=== PATIENT | female | born 1960 | race Caucasian/White ===

== ENCOUNTER → 2017-11-12 11:21 | Outpatient (CLI) | payer OTHER, SELFPAY ==
[2017-11-12 13:01] LABS: PTHIN 48.7 pg/mL (18.4-80.1)
[2017-11-12 13:07] LABS: ALB/GLOB Ratio 1.1 RATIO (0.9-2.4); AST(SGOT) 22 U/L (15-37); Alanine Aminotransfer ALT/SGPT 33 U/L (13-56); Alkaline Phosphatase 88 U/L (45-117); Anion Gap 4 (5-15); BUN 19 mg/dL (7-18); BUN/Creat Ratio 24.4 RATIO (10-20); Chloride 103 mmol/L (98-107); Cholesterol 209 mg/dL (200); Creatinine, Serum 0.78 mg/dL (0.55-1.02); EST Glomerular Filtration Rate 80 mL/min (>60); Est Glom Filt Rate - Afr Amer 97 mL/min (>60); Globulin 3.7 g/dL (2.2-4.2); Glucose 83 mg/dL (74-106); High Density Lipoprotein 116 mg/dL; Potassium 4.5 mmol/L (3.5-5.1); Protein, Total 7.7 g/dL (6.4-8.2); Sodium Level 138 mmol/L (136-145); Thyroid Stim Hormone (TSH) 1.53 uIU/mL (0.358-3.74); Triglycerides 69 mg/dL; Very Low Density Lipoprotein 14 mg/dL (5-40)
== END ==
PROVIDERS: Family Provider Family Medicine; PCP Family Medicine; Visit Provider Internal Medicine Endocrinology, Diabetes & Metabolism
DX: I10 Essential (primary) hypertension (principal); E03.8 Other specified hypothyroidism; E78.00 Pure hypercholesterolemia, unspecified; N20.0 Calculus of kidney; M85.9 Disorder of bone density and structure, unspecified
CPT/HCPCS: 36415; 80053; 80061; 82306; 83970; 84443

== ENCOUNTER → 2018-02-07 11:38 | Outpatient (CLI) | payer OTHER, SELFPAY ==
--- NOTE | 2018-02-07 11:43 | RAD_ITS ---
STUDY: X-RAY - LEFT KNEE REASON FOR EXAM: Female, 57 years old. Knee pain TECHNIQUE: 4 view(s) of the knee. COMPARISON: None. FINDINGS: Normal visualized distal femur. Normal visualized proximal tibia and fibula. Normal proximal tibiofibular articulation. Normal medial femorotibial compartment. Normal lateral femorotibial compartment. There is mild degenerative arthrosis of the patellofemoral articulation. The soft tissue structures are unremarkable. RAD/Knee 4 or More Views IMPRESSION: No acute fracture. Electronically Signed: Corey Boyd, at 4:18 EDT Tel , Service support ,
== END ==
PROVIDERS: Family Provider Family Medicine; PCP Family Medicine; Visit Provider Family Medicine
DX: M25.562 Pain in left knee (principal)
CPT/HCPCS: 73564

== ENCOUNTER → 2018-11-23 09:38 | Outpatient (CLI) | payer OTHER, SELFPAY ==
[2018-11-23 11:25] LABS: Absolute Lymphocyte Count 1.29 X10^3/ul (0.83-4.51); Absolute Neutrophil Count 2.6 X10^3/uL (2.0-7.7); Basophil# 0.07 X10^3/uL; Basophil% 1.6 % (0-1); Eosinophil# 0.14 X10^3/uL; Eosinophils% 3.1 % (0-5); Hematocrit 42.4 % (37-47); Hemoglobin 14.1 g/dl (12.0-15.0); Lymphocyte # 1.29 X10^3/ul (4.0); Lymphocyte % 28.8 % (19-41); Mean Corp Hgb Conc 33.3 g/gl (32-36); Mean Corpuscular Volume 90.2 fL (81-99); Mean Platelet Vol. 10.3 fl (6.2-12.0); Monocyte# 0.39 X10^3/uL; Monocyte% 8.7 % (0-10); Neutrophil # 2.58 X10^3/uL (2.7-7.7); Neutrophil % 57.6 % (47-70); Platelet Count 199 K/mm3 (150-450); RBC Distribution Width SD 46.3 fl (35.1-43.9); White Blood Count 4.5 K/mm3 (4.4-11.0)
[2018-11-23 11:32] LABS: POSITIVE COUNT NO; POSITIVE DIFFERENTIAL NO; POSITIVE MORPHOLOGY NO
[2018-11-23 11:56] LABS: ALB/GLOB Ratio 1.1 RATIO (0.9-2.4); AST(SGOT) 24 U/L (15-37); Alanine Aminotransfer ALT/SGPT 29 U/L (13-56); Albumin, Serum 3.8 g/dL (3.2-5.0); Alkaline Phosphatase 95 U/L (45-117); Anion Gap 5 (5-15); BUN 13 mg/dL (7-18); BUN/Creat Ratio 17.6 RATIO (10-20); Calcium,Total 8.9 mg/dL (8.5-10.1); Chloride 106 mmol/L (98-107); Cholesterol 189 mg/dL (200); Creatinine, Serum 0.74 mg/dL (0.55-1.02); EST Glomerular Filtration Rate 85 mL/min (>60); Est Glom Filt Rate - Afr Amer 103 mL/min (>60); Globulin 3.4 g/dL (2.2-4.2); Glucose 79 mg/dL (74-106); High Density Lipoprotein 95 mg/dL; Potassium 3.7 mmol/L (3.5-5.1); Protein, Total 7.2 g/dL (6.4-8.2); Sodium Level 138 mmol/L (136-145); Thyroid Stim Hormone (TSH) 1.04 uIU/mL (0.358-3.74); Triglycerides 43 mg/dL; Very Low Density Lipoprotein 9 mg/dL (5-40)
== END ==
PROVIDERS: Family Provider Family Medicine; PCP Family Medicine; Referring Provider Internal Medicine Endocrinology, Diabetes & Metabolism; Visit Provider Internal Medicine Endocrinology, Diabetes & Metabolism
DX: Z00.00 Encounter for general adult medical examination without abnormal findings (principal); E03.8 Other specified hypothyroidism; E78.00 Pure hypercholesterolemia, unspecified
CPT/HCPCS: 36415; 80053; 80061; 84443; 85025

== ENCOUNTER → 2019-06-23 15:57 | Outpatient (CLI) | payer OTHER, SELFPAY ==
[2019-06-23 17:14] LABS: ALB/GLOB Ratio 1.1 RATIO (0.9-2.4); AST(SGOT) 19 U/L (15-37); Alanine Aminotransfer ALT/SGPT 30 U/L (13-56); Albumin, Serum 3.8 g/dL (3.2-5.0); Alkaline Phosphatase 107 U/L (45-117); Anion Gap 3 (5-15); BUN 16 mg/dL (7-18); BUN/Creat Ratio 23.5 RATIO (10-20); Calcium,Total 9.3 mg/dL (8.5-10.1); Chloride 104 mmol/L (98-107); Creatinine, Serum 0.68 mg/dL (0.55-1.02); EST Glomerular Filtration Rate 94 mL/min (>60); Est Glom Filt Rate - Afr Amer 113 mL/min (>60); Globulin 3.4 g/dL (2.2-4.2); Glucose 82 mg/dL (74-106); Magnesium 2.2 mg/dL (1.6-2.6); Potassium 4.1 mmol/L (3.5-5.1); Protein, Total 7.2 g/dL (6.4-8.2); Sodium Level 137 mmol/L (136-145); Thyroid Stim Hormone (TSH) 1.26 uIU/mL (0.358-3.74)
== END ==
PROVIDERS: PCP Family Medicine; Referring Provider Internal Medicine Endocrinology, Diabetes & Metabolism; Visit Provider Internal Medicine Endocrinology, Diabetes & Metabolism
DX: E03.8 Other specified hypothyroidism (principal); E83.42 Hypomagnesemia
CPT/HCPCS: 36415; 80053; 83735; 84443

== ENCOUNTER → 2020-03-22 13:23 | Outpatient (CLI) | payer OTHER, SELFPAY ==
[2020-03-22 14:22] LABS: Vitamin D,25 Hydroxy 101.1 ng/mL
[2020-03-22 14:28] LABS: ALB/GLOB Ratio 1.2 RATIO (0.9-2.4); AST(SGOT) 18 U/L (15-37); Alanine Aminotransfer ALT/SGPT 27 U/L (13-56); Alkaline Phosphatase 113 U/L (45-117); Anion Gap 4 (5-15); BUN 13 mg/dL (7-18); BUN/Creat Ratio 18.1 RATIO (10-20); Calcium,Total 8.8 mg/dL (8.5-10.1); Chloride 102 mmol/L (98-107); Cholesterol 211 mg/dL (200); Creatinine, Serum 0.72 mg/dL (0.55-1.02); EST Glomerular Filtration Rate 87 mL/min (>60); Est Glom Filt Rate - Afr Amer 106 mL/min (>60); Globulin 3.3 g/dL (2.2-4.2); Glucose 84 mg/dL (74-106); High Density Lipoprotein 130 mg/dL; Magnesium 2.2 mg/dL (1.6-2.6); Potassium 3.8 mmol/L (3.5-5.1); Protein, Total 7.3 g/dL (6.4-8.2); Sodium Level 137 mmol/L (136-145); Thyroid Stim Hormone (TSH) 2.48 uIU/mL (0.358-3.74); Triglycerides 38 mg/dL; Very Low Density Lipoprotein 8 mg/dL (5-40)
== END ==
PROVIDERS: PCP Family Medicine; Referring Provider Internal Medicine Endocrinology, Diabetes & Metabolism; Visit Provider Internal Medicine Endocrinology, Diabetes & Metabolism
DX: E03.8 Other specified hypothyroidism (principal); E78.00 Pure hypercholesterolemia, unspecified; E55.9 Vitamin D deficiency, unspecified
CPT/HCPCS: 36415; 80053; 80061; 82306; 83735; 84443

== ENCOUNTER → 2020-05-06 11:12 | Outpatient (CLI) | payer OTHER, SELFPAY ==
--- NOTE | 2020-05-06 11:15 | RAD_ITS ---
STUDY: X-RAY - PELVIS AND RIGHT HIP REASON FOR EXAM: Female, 59 years old. right hip pain TECHNIQUE: 3 views of the pelvis and hip. COMPARISON: None. FINDINGS: There is a non-specific bowel gas pattern. Normal visualized soft tissue structures. Normal bilateral iliac wings, sacroiliac joints and visualized sacrum. Normal bilateral superior and inferior pubic rami. Normal pubic symphysis. Normal bilateral ischial tuberosities. Normal visualized femoral head. Normal acetabulum. Normal hip joint. RAD/HIP, UNI W/ Pelvis 2-3 Views IMPRESSION: Normal x-ray examination of the pelvis and hip. Electronically Signed: Campbell Murcia MD at 0:19 EST , Service support ,
== END ==
PROVIDERS: PCP Family Medicine; Referring Provider Family Medicine; Visit Provider Family Medicine
DX: M25.551 Pain in right hip (principal)
CPT/HCPCS: 73502

== ENCOUNTER → 2020-10-29 13:50 | Outpatient (CLI) | payer OTHER, SELFPAY ==
[2020-10-29 15:57] LABS: Vitamin D,25 Hydroxy 117.8 ng/mL
[2020-10-29 16:04] LABS: ALB/GLOB Ratio 1.2 RATIO (0.9-2.4); AST(SGOT) 33 U/L (15-37); Alanine Aminotransfer ALT/SGPT 46 U/L (13-56); Albumin, Serum 3.9 g/dL (3.2-5.0); Alkaline Phosphatase 103 U/L (45-117); Anion Gap 6 (5-15); BUN 20 mg/dL (7-18); BUN/Creat Ratio 28.6 RATIO (10-20); Calcium,Total 9.1 mg/dL (8.5-10.1); Chloride 102 mmol/L (98-107); EST Glomerular Filtration Rate 90 mL/min (>60); Est Glom Filt Rate - Afr Amer 109 mL/min (>60); Globulin 3.2 g/dL (2.2-4.2); Glucose 88 mg/dL (74-106); Magnesium 2.1 mg/dL (1.6-2.6); Potassium 3.6 mmol/L (3.5-5.1); Protein, Total 7.1 g/dL (6.4-8.2); Sodium Level 139 mmol/L (136-145); Thyroid Stim Hormone (TSH) 1.51 uIU/mL (0.358-3.74)
== END ==
PROVIDERS: PCP Family Medicine; Referring Provider Internal Medicine Endocrinology, Diabetes & Metabolism; Visit Provider Internal Medicine Endocrinology, Diabetes & Metabolism
DX: E03.8 Other specified hypothyroidism (principal); E55.9 Vitamin D deficiency, unspecified; E83.42 Hypomagnesemia
CPT/HCPCS: 36415; 80053; 82306; 83735; 84443

== ENCOUNTER 2021-05-05 15:15 | Outpatient (CLI) | payer OTHER, SELFPAY ==
[2021-05-05 15:29] VITALS: BP 111/68; PULSE 81; RESP 16; TEMP 37; O2SAT 100; BMI 22.4
[2021-05-05] MEDS: 0.9% Saline Lock 10 ML Syringe IV (15:38)
[2021-05-05 16:10] VITALS: BP 106/72; PULSE 80; RESP 16; TEMP 37.2; O2SAT 94
[2021-05-05 17:01] VITALS: BP 107/61; PULSE 80; RESP 16; TEMP 37.1; O2SAT 98
== END 2021-05-05 17:12 | disposition home or self-care (01) ==
LOC: MS3OUT 15:17 → MS3 15:18
PROVIDERS: PCP Family Medicine; Referring Provider Nurse Practitioner Adult Health; Visit Provider Nurse Practitioner Adult Health
DX: Z23 Encounter for immunization (principal); U07.1 COVID-19; I10 Essential (primary) hypertension
CPT/HCPCS: J7050; M0245; Q0245; A4216

== ENCOUNTER 2021-05-08 09:23 | Emergency (ER) | payer OTHER, SELFPAY ==
[2021-05-08 09:24] VITALS: BP 138/73; PULSE 99; RESP 16; TEMP 37.1; O2SAT 93; BMI 23.1
--- NOTE | 2021-05-08 09:43 | EKG12_ITS ---
Test Reason : SOB Blood Pressure : / mmHG Vent. Rate : 087 BPM Atrial Rate : 087 BPM P-R Int : 152 ms QRS Dur : 072 ms QT Int : 378 ms P-R-T Axes : 076 071 068 degrees QTc Int : 454 ms Normal sinus rhythm Normal ECG Confirmed by MAG BRONSON, SHERYL ([id number]), newspaper editor managing TRAN SAMUELS ([id number]) on 05/09/2021 10:45:44 AM Referred By: ANGY Confirmed By:SHERYL HATHAWAY MD
--- NOTE | 2021-05-08 09:45 | EDS_ITS ---
HPI History of Present Illness Chief Complaint: Shortness of Breath Narrative Narrative: Patient presents with shortness of breath and pleuritic chest pain that began this morning. Of note, she was diagnosed with COVID-19 over a week ago. She states her symptoms began a week ago Wednesday. She got tested the following Wednesday and found lab results out the following day. Her fever has broken. She received monoclonal antibodies 4 days ago. She became concerned because today she has central pleuritic chest pain and feels like something is stuck. She has a cough, but cannot bring anything up. She denies any nausea or vomiting. No abdominal pain or diarrhea. No other symptoms. She is also concerned because in 2014 she had ARDS. She presents for evaluation. [facility] Medical History (Updated 05/08/21 @ 11:36 by Luis Pal MD) History of non-Hodgkin's lymphoma History of skin cancer Hypothyroidism Migraine Narcolepsy Osteoporosis Spinal stenosis Home Medications ascorbic acid (vitamin C) [Vitamin C] 1,000 mg PO DAILY@0800 09/29/13 [History Last Taken 07/17/14] calcium carbonate [Oyster Shell Calcium 500] 1,500 units PO BID 09/29/13 [H istory Last Taken 07/17/14] cholecalciferol (vitamin D3) [Vitamin D3] 4,000 unit PO DAILY 09/29/13 [History Last Taken 07/17/14] magnesium 500 mg PO DAILY 09/29/13 [History Last Taken 07/17/14] multivitamin with folic acid [Thera] 1 tab PO DAILY 09/29/13 [History Last Taken 07/17/14] naratriptan [Amerge] 2.5 mg PO PRN PRN 09/29/13 [History Last Taken 07/22/14] ondansetron HCl 8 mg PO Q8H PRN PRN 09/29/13 [History Last Taken 07/21/14] levothyroxine 50 mcg PO DAILY 07/24/14 [History Last Taken 07/24/14] dextroamphetamine-amphetamine [Adderall XR] 30 mg PO DAILY PRN 05/05/21 [History Last Taken Unknown] dextroamphetamine-amphetamine [Adderall] 10 mg PO DAILY PRN 05/05/21 [History Last Taken Unknown] ropinirole 0.5 mg PO QHS 05/05/21 [History Last Taken Unknown] tramadol 50 mg PO BID PRN 05/05/21 [History Last Taken Unknown] albuterol sulfate [Ventolin HFA] 1 - 2 puff INHALATION Q4H PRN PRN #1 ea 05/08/21 [Rx Last Taken Unknown] Allergy/AdvReac Type Severity Reaction Status Date / Time cephalexin Allergy Severe muscle Verified 05/08/21 09:26 spasms metronidazole [From Flagyl] Allergy Rash Verified 05/08/21 09:26 NSAIDS (Non-Steroidal AdvReac Other Verified 05/08/21 09:26 Anti-Inflamma Social History Smoking Status: Never smoker ROS ROS ED ROS Narrative Constitutional: No fever, no chills. HEENT: No sore throat. No neck pain. No loss of vision. No rhinorrhea. Cardiovascular: Positive central chest pain. No palpitations. No pedal edema. Respiratory: Positive Covid cough, mild shortness of breath. Abdominal: No abdominal pain. No nausea. No vomiting. Genitourinary: No dysuria. No hematuria. Musculoskeletal: No myalgias. No arthralgias. Neurologic: No headaches. No dizziness. No lightheadedness. Skin: No rash. No change in color. Psychiatric: No depression. No anxiety. EXAM Physical Exam Narrative Exam Narrative: Afebrile. Vital signs noted. HEENT: Normocephalic. Atraumatic. PERRL, EOMI. Neck soft and supple. No point tenderness or step off. Cardiovascular: Regular rate and rhythm. No murmurs, rubs, or gallops appreciated. Respiratory: No tachypnea. Lungs clear to auscultation bilaterally. Gastrointestinal: Abdomen soft, nontender, with normoactive bowel sounds. No rebound or guarding. Neurological: Awake. Alert. Nonfocal, nonlateralizing. Skin: No rash. Normal color. No pallor. Musculoskeletal: No pedal edema. Full range of motion extremities. Const Vital Signs: 05/08/21 09:24 05/08/21 09:52 Temperature 98.7 F Temperature Source Temporal Pulse Rate 99 Respiratory Rate 16 Respiratory Effort Normal Non-Labored Respiratory Depth Normal Respiratory Pattern Normal Blood Pressure 138/73 H Blood Pressure Mean 94 Pulse Ox 93 Oxygen Delivery Method Room Air Room Air MDM MDM MDM Narrative Medical decision making narrative: Comprehensive work-up was pursued. Given her history of COVID-19, concern is for pulmonary emboli. EKG demonstrates normal sinus rhythm at 87 bpm without ectopy or acute ST changes. She has normal white count of 5.6, hemoglobin stable at 13.9. Electrolyte panel is grossly unremarkable. Troponin negative at 5. CT a shows diffuse bilateral pulmonary infiltrates and a preferential peripheral distribution more prominent in the lower lobes. Pneumonitis with Covid is suspected. She has already been diagnosed, and received monoclonal antibodies. There is no evidence of pu lmonary embolism. She was told to take [id number] Mucinex as needed. I wrote her prescription for an albuterol inhaler. At this point in time, I feel she can be discharged safely home with follow-up to her primary care physician. Return instructions were reviewed. Disposition is discharged home in stable condition. Lab Data Attestation: I reviewed the patient's lab results. Labs: Laboratory Results - last 24 hr 05/08/21 05/08/21 10:00 10:00 WBC 5.6 RBC 4.70 Hgb 13.9 Hct 42.6 MCV 90.6 MCH 29.6 MCHC 32.6 RDW Std Deviation 43.7 RDW Coeff of Brett 13.2 Plt Count 194 MPV 9.8 Immature Gran % (Auto) 0.400 Neut % (Auto) 78.1 H Lymph % (Auto) 11.9 L [place] % (Auto) 8.1 Eos % (Auto) 1.1 Baso % (Auto) 0.4 Absolute Neuts (auto) 4.4 Absolute Lymphs (auto) 0.66 L Nucleated RBC % 0 Sodium 139 Potassium 4.0 Chloride 103 Carbon Dioxide 30.0 Anion Gap 6 BUN 9 Creatinine 0.64 Estim Creat Clear Calc 88.63 Est GFR (MDRD) Af Amer 121 Est GFR (MDRD) Non-Af 100 BUN/Creatinine Ratio 14.1 Glucose 108 H Calcium 8.9 Troponin I High Sens 5 Radiography Diagnostic Testing: Clinical Impression(s) from Imaging Studies Chest CTA 05/08/21 10:42 IMPRESSION: Diffuse bilateral pulmonary infiltrates and a preferential peripheral distribution more prominent in the lower lobes. Pneumonitis associated with Covid should be ruled out. Electronically Signed: Akash Calzada MD at 11:07 EST , Service support , Discharge Plan Triage Chief Complaint: Shortness of Breath ED Provider: Luis Pal Dx/Rx/DC Orders Clinical Impression: Chest pain, Shortness of breath, COVID-19 Instructions: Coronavirus Disease 2019 (COVID-19): Caring for Yourself or Others, COVID-19: Lying in a Prone Position (Proning), ED Chest Pain, Uncertain Cause Prescriptions: New albuterol sulfate [Ventolin HFA] 90 mcg/actuation HFA aerosol inhaler 1 - 2 puff inhalation Q4H PRN PRN (Reason: Wheezing) Qty: 1 RF: 0 No Action ondansetron HCl 8 MG tablet 8 mg PO Q8H PRN PRN (Reason: Nausea) RF: 0 calcium carbonate [Oyster Shell Calcium 500] 500 MG tablet 1,500 units PO BID RF: 0 ascorbic acid (vitamin C) [Vitamin C] 500 MG tablet 1,000 mg PO DAILY@0800 RF: 0 magnesium 250 MG tablet 500 mg PO DAILY RF: 0 naratriptan [Amerge] 2.5 MG tablet 2.5 mg PO PRN PRN (Reason: Headache) RF: 0 cholecalciferol (vitamin D3) [Vitamin D3] 2,000 UNIT tablet 4,000 unit PO DAILY RF: 0 multivitamin with folic acid [Thera] 1 TABLET tablet 1 tab PO DAILY RF: 0 levothyroxine 50 MCG tablet 50 mcg PO DAILY RF: 0 dextroamphetamine-amphetamine [Adderall] 10 mg Tablet 10 mg PO DAILY PRN (Reason: narcolepsy) RF: 0 ropinirole 0.5 mg Tablet 0.5 mg PO QHS RF: 0 dextroamphetamine-amphetamine [Adderall XR] 30 mg Capsule,Extended Release 24hr 30 mg PO DAILY PRN (Reason: narcolepsy) RF: 0 tramadol 50 mg Tablet 50 mg PO BID PRN (Reason: Pain) RF: 0 Primary Care Provider: Armando Pelayo Referrals: Armando Pelayo DO [Primary Care Provider] - 05/15/21 Disposition Disposition: Home, Self Care
[2021-05-08 09:52] VITALS: O2SAT 93
[2021-05-08 10:13] LABS: Absolute Lymphocyte Count 0.66 X10^3/uL (0.83-4.51); Absolute Neutrophil Count 4.4 X10^3/uL (2.0-7.7); Basophil# 0.02 X10^3/uL; Basophil% 0.4 % (0-1); Eosinophil# 0.06 X10^3/uL; Eosinophils% 1.1 % (0-5); Hematocrit 42.6 % (37-47); Hemoglobin 13.9 g/dL (12.0-15.0); Lymphocyte # 0.66 X10^3/ul (0.83-4.51); Lymphocyte % 11.9 % (19-41); Mean Corp Hgb Conc 32.6 g/dL (32-36); Mean Corpuscular Hgb 29.6 pg (27.0-32.0); Mean Corpuscular Volume 90.6 fL (81-99); Mean Platelet Vol. 9.8 fl (6.2-12.0); Monocyte# 0.45 X10^3/uL; Monocyte% 8.1 % (0-10); NRBC Flagged by Analyzer 0 % (0-5); Neutrophil # 4.35 X10^3/uL (2.7-7.7); Neutrophil % 78.1 % (47-70); Platelet Count 194 K/mm3 (150-450); RBC Distribution Width CV 13.2 % (11.6-14.6); RBC Distribution Width SD 43.7 fl (35.1-43.9); White Blood Count 5.6 K/mm3 (4.4-11.0)
[2021-05-08 10:31] LABS: Anion Gap 6 (5-15); BUN 9 mg/dL (7-18); BUN/Creat Ratio 14.1 RATIO (10-20); Calcium,Total 8.9 mg/dL (8.5-10.1); Chloride 103 mmol/L (98-107); Creatinine, Serum 0.64 mg/dL (0.55-1.02); EST Glomerular Filtration Rate 100 mL/min (>60); Est Glom Filt Rate - Afr Amer 121 mL/min (>60); Estimated Creatinine Clearance 88.63 ml/min; Glucose 108 mg/dL (74-106); Sodium Level 139 mmol/L (136-145); Troponin-I HS 5 pg/mL (3.0-54.0)
--- NOTE | 2021-05-08 10:42 | CT_ITS ---
STUDY: CTA CHEST REASON FOR EXAM: Female, 60 years old. SHORTNESS OF BREATH RADIATION DOSAGE (If Supplied By Facility): CTDIvol = ( 4.41 ) mGy, DLP = ( 155.20 ) mGycm TECHNIQUE: The examination was performed with the intravenous administration of IV 100mL Isovue-370. Post-processing of the angiographic images was performed, with multiplanar reformation and 3D reconstruction. Individualized dose optimization techniques were used for this CT. COMPARISON: None. FINDINGS: Normal enhancement of the main pulmonary artery and right and left pulmonary arteries. Normal enhancement of the bilateral peripheral pulmonary arteries. There is no demonstrated pulmonary embolism. Normal thoracic aorta and visualized great vessels. There is no demonstrated aortic dissection. Normal heart and pericardium. Normal mediastinum. Normal hilar regions. Normal visualized trachea and bronchi. The lungs are well expanded. Diffuse bilateral pulmonary infiltrates in the preferential peripheral distribution involving both lungs but worse in the lower lobes. Pneumonitis associated with Covid should be ruled out. Normal pleura. Normal chest wall structures. There are degenerative changes of thoracic spine. Normal visualized upper abdomen. CT/CTA Chest W/WO Contrast IMPRESSION: Diffuse bilateral pulmonary infiltrates and a preferential peripheral distribution more prominent in the lower lobes. Pneumonitis associated with Covid should be ruled out. Electronically Signed: Akash Calzada MD at 11:07 EST , Service support ,
[2021-05-08 11:53] VITALS: PULSE 72; RESP 18; O2SAT 94
[2021-05-08 12:10] VITALS: BP 134/62; PULSE 18; RESP 16; TEMP 36.3; O2SAT 94
== END 2021-05-08 12:14 | disposition home or self-care (01) ==
PROVIDERS: Emergency Provider Emergency Medicine; PCP Family Medicine
DX: U07.1 COVID-19 (principal); G43.909 Migraine, unspecified, not intractable, without status migrainosus; G47.419 Narcolepsy without cataplexy; E03.9 Hypothyroidism, unspecified; M81.0 Age-related osteoporosis without current pathological fracture; Z79.890 Hormone replacement therapy; Z79.899 Other long term (current) drug therapy; Z85.828 Personal history of other malignant neoplasm of skin; Z85.72 Personal history of non-Hodgkin lymphomas
CPT/HCPCS: 71275; 80048; 84484; 85025; 93005; 99284; Q9967; A4216

== ENCOUNTER 2021-07-07 15:13 | Outpatient (CLI) | payer OTHER, SELFPAY ==
--- NOTE | 2021-07-07 15:15 | BI_ITS ---
MAMMOGRAPHY - BILATERAL SCREENING REASON FOR EXAM: Female, 60 years old. Routine annual screening examination. PERTINENT HISTORY: Grandmother with breast cancer. History of prior Hodgkin''s lymphoma. TECHNIQUE: Digital bilateral breast yoni (3D mammographic acquisition) in the CC and MLO projections. 2-D mediolateral oblique (MLO) and craniocaudad (CC) views of both breasts were obtained. CAD: Full Field Digital Mammography with Computer Added Detection was performed. COMPARISON: Comparison is made with prior outside examination 03/02/2017. FINDINGS: Breast Composition: The breasts are extremely dense, which lowers the sensitivity of mammography. There are no dominant masses or suspicious calcifications. No other significant abnormalities are identified. There has been no significant change since the prior study. BI/SCRN MAMM (CAD)W/YONI BILAT IMPRESSION: Stable bilateral screening mammogram. Yearly follow-up mammogram recommended. (A) ASSESSMENT CATEGORY: BIRADS Category 1: Negative. A letter regarding these results will be sent to the patient by the facility within 30 days. Approximately 10% of breast cancers are not detected by mammography. A normal mammogram should not delay biopsy of a clinically suspicious abnormality. [id number] Electronically Signed: Akash Calzada MD at 8:13 EST ,
== END 2021-07-07 23:59 | disposition home or self-care (01) ==
LOC: OPBI 15:14
PROVIDERS: PCP Family Medicine; Referring Provider Family Medicine; Visit Provider Family Medicine
DX: Z12.31 Encounter for screening mammogram for malignant neoplasm of breast (principal)
CPT/HCPCS: 77063; 77067

== ENCOUNTER → 2021-10-28 | Outpatient (CLI) | payer OTHER, SELFPAY ==
[2021-10-28 13:00] LABS: PTHIN 44.2 pg/mL (18.4-80.1)
[2021-10-28 13:01] LABS: Vitamin D,25 Hydroxy 65.6 ng/mL
[2021-10-28 13:02] LABS: ALB/GLOB Ratio 1.4 RATIO (0.9-2.4); AST(SGOT) 34 U/L (15-37); Alanine Aminotransfer ALT/SGPT 41 U/L (13-56); Albumin, Serum 4.2 g/dL (3.2-5.0); Alkaline Phosphatase 102 U/L (45-117); Anion Gap 5 (5-15); BUN 17 mg/dL (7-18); BUN/Creat Ratio 23.7 RATIO (10-20); Calcium,Total 9.4 mg/dL (8.5-10.1); Chloride 107 mmol/L (98-107); Creatinine, Serum 0.72 mg/dL (0.55-1.02); EST Glomerular Filtration Rate 87 mL/min (>60); Est Glom Filt Rate - Afr Amer 106 mL/min (>60); Globulin 3.1 g/dL (2.2-4.2); Glucose 89 mg/dL (74-106); Potassium 3.9 mmol/L (3.5-5.1); Protein, Total 7.3 g/dL (6.4-8.2); Sodium Level 140 mmol/L (136-145)
[2021-10-31 08:11] LABS: Thyroid Stim Hormone (TSH) 1.04 uIU/mL (0.358-3.74)
== END | disposition home or self-care (01) ==
LOC: LAB 11:06
PROVIDERS: PCP Family Medicine; Referring Provider Internal Medicine Endocrinology, Diabetes & Metabolism; Visit Provider Internal Medicine Endocrinology, Diabetes & Metabolism
DX: E03.8 Other specified hypothyroidism (principal); M81.0 Age-related osteoporosis without current pathological fracture; E55.9 Vitamin D deficiency, unspecified
CPT/HCPCS: 36415; 80053; 82306; 83970; 84443

== ENCOUNTER → 2022-10-02 | Outpatient (CLI) | payer OTHER, SELFPAY ==
--- NOTE | 2022-10-02 10:18 | RAD_ITS ---
INDICATION: BACK PAIN EXAMINATION/TECHNIQUE: X-RAY - XR Spine Lumbar Min 4 Views COMPARISON: None. FINDINGS: Minimal retrolisthesis of L4 on L5. Lumbar spine disc height overall is relatively preserved. There is some multilevel facet hypertrophic change. This probably contributes to slight lower lumbar spine bony foraminal narrowing. No definitive spondylolysis or spondylolisthesis. Mild bilateral SI joint degenerative changes present. The patient does have a long thoracolumbar curvature centered at about L1/L2. Nonspecific bowel gas pattern. Mild to moderate colonic stool burden. IMPRESSION: Lumbar spine degenerative changes outline. No acute fracture. RAD/L/S Spine Min 4 Views IMPRESSION: No evidence of lumbar spinal fracture or spondylolisthesis. No obvious focal aggressive osseous lesion however cross-sectional imaging would be more sensitive if there is clinical concern. Electronically Signed: Emir Gauthier MD at 19:59 EDT ,
--- NOTE | 2022-10-02 10:18 | RAD_ITS ---
INDICATION: NECK PAIN EXAMINATION/TECHNIQUE: X-RAY - XR Spine Cervical 4 or 5 Views COMPARISON: None. FINDINGS: VERTEBRAE: Preserved vertebral body height. No fracture. No spondylolisthesis. Preservation of the normal cervical lordosis. There is moderate to marked facet hypertrophic change particularly on the LEFT from approx C3-C6. DISCS: There is mild disc space narrowing at C5-6. Mild marginal osteophyte formation is noted. Minimal degenerative anterolisthesis of C4 on C5. There is narrowing of neural foramina particularly on the LEFT at C4-5 and C5-6. NECK SOFT TISSUES: No prevertebral soft tissue widening. LUNG APICES: Clear. RAD/Cerv Spine 4 or 5 Views IMPRESSION: 1. No evidence of fracture, acute malalignment or destructive bony process. 2. There is mild degenerative grade 1 anterolisthesis of C4 on C5. 3. Cervical spondylosis and facet arthrosis most marked on the LEFT with associated LEFT foraminal narrowing as detailed.. Electronically Signed: Lewis Blevins MD at 21:44 EDT ,
== END | disposition home or self-care (01) ==
LOC: MTRAD 10:16
PROVIDERS: PCP Family Medicine; Referring Provider Family Medicine; Visit Provider Family Medicine
DX: M54.2 Cervicalgia (principal); M47.16 Other spondylosis with myelopathy, lumbar region
CPT/HCPCS: 36580; 72050; 72110

== ENCOUNTER → 2022-10-20 | Outpatient (CLI) | payer OTHER, SELFPAY ==
[2022-10-20 12:00] LABS: PTHIN 25.8 pg/mL (18.4-80.1)
[2022-10-20 12:03] LABS: Vitamin D,25 Hydroxy 88.9 ng/mL
[2022-10-20 12:13] LABS: ALB/GLOB Ratio 1.3 RATIO (0.9-2.4); AST(SGOT) 24 U/L (15-37); Alanine Aminotransfer ALT/SGPT 32 U/L (13-56); Albumin, Serum 3.7 g/dL (3.2-5.0); Alkaline Phosphatase 121 U/L (45-117); Anion Gap 6 (5-15); BUN 23 mg/dL (7-18); BUN/Creat Ratio 32.3 RATIO (10-20); Calcium,Total 8.9 mg/dL (8.5-10.1); Chloride 107 mmol/L (98-107); Creatinine, Serum 0.71 mg/dL (0.55-1.02); EST Glomerular Filtration Rate 88 mL/min (>60); Est Glom Filt Rate - Afr Amer 106 mL/min (>60); Globulin 2.9 g/dL (2.2-4.2); Glucose 88 mg/dL (74-106); Potassium 4.5 mmol/L (3.5-5.1); Protein, Total 6.6 g/dL (6.4-8.2); Sodium Level 140 mmol/L (136-145)
== END | disposition home or self-care (01) ==
LOC: LAB 10:35
PROVIDERS: PCP Family Medicine; Visit Provider Internal Medicine Endocrinology, Diabetes & Metabolism
DX: E03.8 Other specified hypothyroidism (principal); E21.5 Disorder of parathyroid gland, unspecified; E55.9 Vitamin D deficiency, unspecified
CPT/HCPCS: 36415; 80053; 82306; 83970; 84443

== ENCOUNTER → 2022-12-02 | Outpatient (CLI) | payer OTHER, SELFPAY ==
[2022-12-02 13:52] LABS: ALB/GLOB Ratio 1.2 RATIO (0.9-2.4); AST(SGOT) 20 U/L (15-37); Alanine Aminotransfer ALT/SGPT 32 U/L (13-56); Albumin, Serum 3.7 g/dL (3.2-5.0); Alkaline Phosphatase 113 U/L (45-117); Anion Gap 4 (5-15); BUN 16 mg/dL (7-18); BUN/Creat Ratio 21.1 RATIO (10-20); Chloride 106 mmol/L (98-107); Creatinine, Serum 0.76 mg/dL (0.55-1.02); EST Glomerular Filtration Rate 82 mL/min (>60); Est Glom Filt Rate - Afr Amer 99 mL/min (>60); Globulin 3.2 g/dL (2.2-4.2); Glucose 111 mg/dL (74-106); Potassium 3.7 mmol/L (3.5-5.1); Protein, Total 6.9 g/dL (6.4-8.2); Sodium Level 140 mmol/L (136-145)
[2022-12-04 15:08] LABS: Alkaline Phosphatase, Serum 109 IU/L (44-121); Bone Fraction 54 % (14-68); Intestinal Fraction 8 % (0-18); Liver Fraction 38 % (18-85)
== END | disposition home or self-care (01) ==
LOC: LAB 13:07
PROVIDERS: PCP Family Medicine; Referring Provider Internal Medicine Endocrinology, Diabetes & Metabolism; Visit Provider Internal Medicine Endocrinology, Diabetes & Metabolism
DX: E03.8 Other specified hypothyroidism (principal); M81.0 Age-related osteoporosis without current pathological fracture
CPT/HCPCS: 36415; 80053; 84075; 84080

== ENCOUNTER → 2023-03-01 | Outpatient (CLI) | payer OTHER, SELFPAY ==
--- NOTE | 2023-03-01 13:25 | RAD_ITS ---
INDICATION: PAIN EXAMINATION/TECHNIQUE: X-RAY - RIGHT XR Knee Complete 4 Views or More 4 VIEWS COMPARISON: No relevant prior comparison study available FINDINGS: SOFT TISSUES: No soft tissue swelling or gas. No radiopaque foreign body. BONES/JOINTS: No acute fracture or subluxation.. Normal alignment. Preservation of the joint space.. Small tricompartmental marginal osteophytes. RAD/Knee 4 or More Views IMPRESSION: No fracture or malalignment. Small tricompartmental marginal osteophytes. Electronically Signed: Pascual Tabares MD at 18:25 EDT ,
== END | disposition home or self-care (01) ==
LOC: MTRAD 13:22
PROVIDERS: PCP Family Medicine; Referring Provider Family Medicine; Visit Provider Family Medicine
DX: M25.561 Pain in right knee (principal)
CPT/HCPCS: 73564

== ENCOUNTER → 2023-03-09 | Outpatient (CLI) | payer OTHER, SELFPAY ==
--- NOTE | 2023-03-09 11:56 | BI_ITS ---
MAMMOGRAPHY - BILATERAL SCREENING 3-D TOMOSYNTHESIS REASON FOR EXAM: Female, 62 years old. SCREENING PERTINENT HISTORY: No significant family history. TECHNIQUE: 2-D mammograms and 3-D Tomosynthesis of the breast (s) were performed. CAD was performed. COMPARISON: 07/07/2021 FINDINGS: The breast composition is Extermely dense tissue. Scattered benign calcifications are seen. No dense spiculated masses or suspicious microcalcifications are identified. No architectural distortion is identified. There is no skin thickening or retraction. There has been no significant change since the prior study. BI/SCRN MAMM (CAD)W/YONI BILAT IMPRESSION: No mammographic signs of malignancy. Routine yearly mammograms recommended. ASSESSMENT CATEGORY: BIRADS Category 1: Negative. A letter regarding these results will be sent to the patient by the facility within 30 days. FOLLOW UP RECOMMENDATION: Yearly follow up mammogram recommended. (A) Approximately 10% of breast cancers are not detected by mammography. A normal mammogram should not delay biopsy of a clinically suspicious abnormality. Electronically Signed: Lewis Samuel MD at 13:21 EDT ,
== END | disposition home or self-care (01) ==
LOC: OPBI 11:52
PROVIDERS: PCP Family Medicine; Referring Provider Family Medicine; Visit Provider Family Medicine
DX: Z12.31 Encounter for screening mammogram for malignant neoplasm of breast (principal)
CPT/HCPCS: 77063; 77067

== ENCOUNTER → 2023-10-25 | Outpatient (CLI) | payer OTHER, SELFPAY ==
[2023-10-25 11:13] LABS: Vitamin D,25 Hydroxy 66.9 ng/mL
[2023-10-25 13:35] LABS: ALB/GLOB Ratio 1.3 RATIO (0.9-2.4); AST(SGOT) 22 U/L (15-37); Alanine Aminotransfer ALT/SGPT 28 U/L (13-56); Albumin, Serum 3.8 g/dL (3.2-5.0); Alkaline Phosphatase 113 U/L (45-117); Anion Gap 3 (5-15); BUN 18 mg/dL (7-18); BUN/Creat Ratio 22.4 RATIO (10-20); Calcium,Total 9.1 mg/dL (8.5-10.1); Chloride 105 mmol/L (98-107); EST Glomerular Filtration Rate 76 mL/min (>60); Est Glom Filt Rate - Afr Amer 92 mL/min (>60); Glucose 93 mg/dL (74-106); Magnesium 2.5 mg/dL (1.6-2.6); Potassium 4.5 mmol/L (3.5-5.1); Protein, Total 6.8 g/dL (6.4-8.2); Sodium Level 137 mmol/L (136-145); Thyroid Stim Hormone (TSH) 1.35 uIU/mL (0.358-3.74)
== END | disposition home or self-care (01) ==
LOC: LAB 09:10
PROVIDERS: PCP Family Medicine; Visit Provider Internal Medicine Endocrinology, Diabetes & Metabolism
DX: E03.8 Other specified hypothyroidism (principal); M81.0 Age-related osteoporosis without current pathological fracture; E55.9 Vitamin D deficiency, unspecified
CPT/HCPCS: 36415; 80053; 82306; 83735; 83970; 84443

== ENCOUNTER → 2024-04-14 | Outpatient (CLI) | payer OTHER, SELFPAY | END | disposition home or self-care (01) | LOC: OPBI 10:00 | PROVIDERS: PCP Family Medicine; Referring Provider Nurse Practitioner Family; Visit Provider Nurse Practitioner Family | DX: Z12.31 Encounter for screening mammogram for malignant neoplasm of breast (principal) | CPT/HCPCS: 77063; 77067 ==

== ENCOUNTER → 2024-05-05 | Outpatient (CLI) | payer OTHER, SELFPAY ==
--- NOTE | 2024-05-05 13:23 | RAD_ITS ---
EXAM: XR LUMBOSACRAL SPINE, 4 OR 5 VIEWS CLINICAL INDICATION: PAIN AND ARTHRITIS TECHNIQUE: Frontal, lateral and bilateral oblique views of the lumbar spine. COMPARISON: 10/02/2022 FINDINGS: VERTEBRAE: Minimal chronic superior endplate compression deformity of L4. Facet joint hypertrophy of the lower lumbar spine. No spondylolisthesis. Preservation of the normal lumbar lordosis. DISC SPACES: No acute findings. Disc spaces are maintained. GASTROINTESTINAL TRACT: Unremarkable as visualized. Included bowel gas pattern is non-obstructive. RAD/L/S Spine Min 4 Views IMPRESSION: 1. Minimal chronic superior endplate compression deformity of L4. 2. Facet joint hypertrophy of the lower lumbar spine. Electronically Signed: Abelardo Fernandez MD at 12:21 EST ,
--- NOTE | 2024-05-05 13:23 | RAD_ITS ---
EXAM: XR CERVICAL SPINE, 4 OR 5 VIEWS CLINICAL INDICATION: PAIN AND ARTHRITIS TECHNIQUE: Frontal, lateral and bilateral oblique views of the cervical spine. COMPARISON: Cervical spine plain film from 10/02/2022 FINDINGS: VERTEBRAE: Stable grade 1 anterolisthesis of C4 on C5. Preserved vertebral body height. No acute fracture. No spondylolisthesis. Preservation of the normal cervical lordosis. No significant facet arthropathy. DISC SPACES: Stable osseous encroachment of the left neural foramen at C4/5 and C5/6. Degenerative changes of the intervertebral discs. SOFT TISSUES: Unremarkable. No prevertebral soft tissue widening. LUNG APICES: Clear. RAD/Cerv Spine 4 or 5 Views IMPRESSION: 1. No acute injuries identified involving the cervical spine. 2. Degenerative changes. 3. Stable grade 1 anterolisthesis of C4 on C5. 4. Stable osseous encroachment of the left neural foramen at C4/5 and C5/6. Electronically Signed: Abelardo Fernandez MD at 12:23 EST ,
== END | disposition home or self-care (01) ==
LOC: MTRAD 13:22
PROVIDERS: PCP Family Medicine; Referring Provider Nurse Practitioner Family; Visit Provider Nurse Practitioner Family
DX: M47.892 Other spondylosis, cervical region (principal); M47.16 Other spondylosis with myelopathy, lumbar region; M19.90 Unspecified osteoarthritis, unspecified site
CPT/HCPCS: 72050; 72110

== ENCOUNTER → 2024-12-06 | Outpatient (CLI) | payer OTHER, SELFPAY ==
[2024-12-06 17:03] LABS: AST(SGOT) 27 U/L (<=31); Alanine Aminotransfer ALT/SGPT 27 U/L (<=34); Albumin, Serum 4.2 g/dL (3.4-4.8); Alkaline Phosphatase 104 U/L (35-104); Anion Gap 11 (5-15); BUN 18 mg/dL (4-19); BUN/Creat Ratio 19.3 RATIO (10-20); Calcium,Total 9.5 mg/dL (7.6-11.0); Carbon Dioxide 24.0 mmol/L (21.0-32.0); Chloride 104 mmol/L (98-108); Globulin 2.2 g/dL (2.2-4.2); Glucose 92 mg/dL (70-99); Magnesium 2.3 mg/dL (1.5-2.2); Potassium 4.2 mmol/L (3.3-5.1)
== END | disposition home or self-care (01) ==
LOC: LAB 15:49
PROVIDERS: PCP Family Medicine; Referring Provider Nurse Practitioner Adult Health; Visit Provider Nurse Practitioner Adult Health
DX: E83.42 Hypomagnesemia (principal); E03.8 Other specified hypothyroidism
CPT/HCPCS: 36415; 80053; 83735; 84443

== ENCOUNTER → 2025-02-21 | Outpatient (CLI) | payer OTHER, SELFPAY ==
--- NOTE | 2025-02-21 15:26 | MRI_ITS ---
PROCEDURE: SPINE LUMBAR (ROUTINE) 02/21/2025 REASON FOR EXAM: OTHER SPONDYLOSIS WITH RADICULOPATHY, R LUMBOSACRAL REGION TECHNIQUE: Procedure Code: MRISPL Modality: MR Procedure: SPINE LUMBAR (ROUTINE) COMPARISON: None FINDINGS: Vertebrae: There are 5 lumbar-type vertebral bodies. Heterogeneous marrow signal present. There is no bone marrow edema to suggest fracture. Old compression deformity of the superior endplate of L4 is noted. Alignment: No scoliosis. No violeta or retrolisthesis. Conus Medullaris: The conus medullaris ends normally at T12-L1. The distal spinal cord has a normal course caliber and signal. L1-2: Diffuse disc desiccation and disc bulge. Facet arthropathy and ligamentum flavum hypertrophy. No central or foraminal stenosis L2-3: Small right paracentral protrusion minimally indenting the thecal sac with slight narrowing of the right lateral recess. Facet arthropathy and ligamentum flavum hypertrophy. No foraminal stenosis. L3-4: Diffuse disc desiccation. Facet arthropathy and ligamentum flavum hypertrophy. No central or foraminal stenosis. L4-5: Diffuse disc desiccation and disc bulge. Facet arthropathy and ligamentum flavum hypertrophy. Mild central stenosis. Mild bilateral foraminal encroachment L5-S1: Diffuse disc desiccation and mild disc bulge. Facet arthropathy and ligamentum flavum hypertrophy. No central stenosis. Sacrum: What is seen of the sacrum appears normal. Visible SI joints are unremarkable. Retroperitoneal soft tissues are normal. No lymphadenopathy or aneurysm. MRI/Spine Lumbar (Routine) IMPRESSION: Mild multilevel degenerative disc disease and facet arthropathy without signifi cant central or foraminal stenosis. Tiny right paracentral protrusion at L2-3 slightly abutting the thecal sac and narrowing the right lateral recess. Reading Location: [id number]
== END | disposition home or self-care (01) ==
LOC: MRI 15:23
PROVIDERS: PCP Family Medicine; Referring Provider Family Medicine; Visit Provider Family Medicine
DX: M47.27 Other spondylosis with radiculopathy, lumbosacral region (principal)
CPT/HCPCS: 72148

== ENCOUNTER 2025-04-26 07:02 | Day surgery (SDC) | payer OTHER, SELFPAY ==
[2025-04-26] VITALS (7 sets, daily range): BP systolic 101–110; BP diastolic 62–69; PULSE 65–76; RESP 16; TEMP 36.1–36.8; O2SAT 97–99; BMI 23.3
--- OUTSIDE RECORDS SUMMARY | 2025-04-26 07:07 | XMS RPT_ITS | CCD ---
Author Organization [facility] Care Team Providers Care Personnel Psychologist Name Role Phone BisiMicaela A Unavailable Unavailable Bisi, Micaela A Unavailable Unavailable Regalado, Jeff A Unavailable Unavailable Regalado, Jeff A Unavailable Unavailable Bisi, Micaela A Unavailable Unavailable Bisi, Micaela A Unavailable Unavailable Bisi, Micaela A Unavailable Unavailable REGALADO, JEFF A Unavailable Unavailable Bisi, Micaela A Unavailable Unavailable REGALADO, JEFF A Unavailable Unavailable Bisi, Micaela A Unavailable Unavailable CHIOMA REDMOND Attending CHIOMA Weeks Referring Unavai lable BISI, MICAELA ROJAS Primary Care Unavailable CHIOMA REDMOND Referring Unavai labadam BISIMICAELA CORONA Primary Care Unavailable CHIOMA REDMOND Admitting Unavai олег PELAYO, MICAELA ROJAS Primary Care Unavailable CHIOMA REDMOND Attending EvelynevaMICAELA [place] Primary Care Unavailable CHIOMA REDMOND Attending Unavai Micaela Odom DO A Primary Care Provider Micaela Pelayo Unavailable Micaela Pelayo DO A Primary Care Provider Micaela Pelayo DO A Primary Care Provider MICAELA PELAYO A Primary Care Unavailable DEBRA TY Attending Unavailable DEBRA TY Referring Unavailable NATRACI DEBRA Attending Unavailable BISI, MICAELA A Primary Care Unavailable NATRACI DEBRA Referring Unavailable NATRACI, DEBRA Attending Unavailable BISI, MICAELA A Primary Care Unavailable MELONY DEBRA Referring Unavailable NATRACI DEBRA Attending Unavailable BISI, MICAELA A Primary Care Unavailable DEBRA TY Referring Unavailable Dr. Micaela Pelayo Primary Care Provider Dr. Micaela Pelayo Referring Provider Dr. Nikky Abbott Attending Provider Dr. Gary Doyle Attending Provider MICAELA PELAYO Primary Care Unavailable Dr. Micaela Pelayo DO Primary Care Provider CHRISTINE MILLROOM SUPERVISOR-C, SAMMI Attending Provider CHRISTINE MILLROOM SUPERVISOR-C, SAMMI Referring Provider [phone] Vicki Sinclair Attending Unavailable Vicki Sinclair Referring Unavailable BisiMicaela corona Primary Care Unavailable Micaela Pelayo Referring Unavailable Micaela Pelayo Primary Care Unavailable Micaela Pelayo Attending Unavailable Geraldo Corona Attending Unavailable Bisi, Micaela Primary Care Unavailable SAMMI KING Attending Unavailable SAMMI KING Referring Unavailable Bisi, Micaela Primary Care Unavailable Vicki Sinclair Attending Unavailable Yahir, Vicki Referring Unavailable Bisi, Micaela Primary Care Unavailable Allergies Allergy Classification Reported Allergen(s) Allergy Type Date of Onset Reaction(s) Facility (1 source) metroNIDAZOLE; Translations: [Flagyl] Drug Allergy [facility] Repository (1 source) nonsteroidal antiinflammatory agent; Translations: [nonsteroidal antiinflammatory agent] Propensity to adverse reactions to drug (disorder) [facility] Repository (20 sources) Cephalexin; Translations: [CEPHALEXIN] Drug Allergy 05-08-20 21 Other: See Comments [facility] Work Phone: (18 sources) metroNIDAZOLE; Translations: [METRONIDAZOLE HCL] Drug Allergy 12-16-19 16 Rash [facility] (3 sources) Non-steroidal anti-inflammatory agent; Translations: [NSAIDS (NON-STEROIDAL ANTI-INFLAMMATORY DRUG)] Propensity to adverse reactions 05-06-20 09 GI Upset [facility] (18 sources) Seasonal allergy; Translations: [SEASONAL ALLERGIES] Allergy to substance 09-27-19 14 Cough [facility] (6 sources) metroNIDAZOLE Drug Allergy 05-08-[address] [facility] (7 sources) NSAIDS (Non-Steroidal Anti-Inflamma; Translations: [NSAIDS (Non-Steroidal Anti-Inflamma] Propensity to adverse reactions 05-08-20 [address] [facility] Comment on above: STOMACH UPSET-per pa tient get stomach blisters (15 sources) Non-steroidal anti-inflammatory agent Propensity to adverse reactions 05-06-20 09 GI Upset [facility] (1 source) ALLERGIES NOT ON FILE; Translations: [ALLERGIES NOT ON FILE] Propensity to adverse reactions (disorder) [facility] (1 source) Cephalexin Drug Allergy 06-16-[address] [facility] Repository (1 source) metroNIDAZOLE Drug Allergy 06-16-[address] [facility] Repository Medications Current Medications Medication Drug Class(es) Dates Sig (Normalized) Sig (Original) acetylcarnitine 250 mg oral capsule (3 sources) Start: 01-19-2023 take 1 capsule by mouth once daily Acetylcarnitine Hcl 250 mg capsule Active 250 mg PO DAILY January 19, 2023 12:00am acetylcysteine 600 mg oral capsule (3 sources) Antidote, Mucolytic, Antidote for Acetaminophen Overdose Start: 01-19-2023 take 1 capsule by mouth once daily Acetylcysteine (Nac) 600 mg capsule Active 600 mg PO DAILY January 19, 2023 12:00am Albuterol Sulfate (6 sources) beta2-Adrenergic Agonist Start: 05-08-2021 take 1 puff(s) by inhalation every four hours as needed Albuterol Sulfate (Ventolin Hfa) 90 mcg/actuation HFA aerosol inhaler Active 1 - 2 PUFF INHALATION EVERY 4 HOURS NEEDED May 08, 2021 12:34pm Start: 05-08-2021 End: 01-19-2023 Albuterol Sulfate (Ventolin Hfa) 90 mcg/actuation HFA aerosol inhaler Discontinued 1 - 2 NMA INHALATION EVERY 4 HOURS NEEDED as needed for Wheezing 1 0 May 08, 2021 1:00am January 19, 2023 10:55am Start: 05-08-2021 End: 01-19-2023 take 1 puff(s) by inhalation every four hours as needed Albuterol Sulfate (Ventolin Hfa) 90 mcg/actuation HFA aerosol inhaler Discontinued 1 - 2 PUFF INHALATION EVERY 4 HOURS NEEDED May 08, 2021 1:00am January 19, 2023 10:55am ascorbic acid 500 mg oral tablet (20 sources) Vitamin C Start: 09-29-2013 take 2 tablets by mouth once daily Ascorbic Acid (Vitamin C) (Vitamin C) 500 MG tablet Active 1000 mg PO DAILY@0800 September 29, 2013 12:00am take 1 tablet by mouth once ayde y Ascorbic Acid 1,000 mg tablet Take 1,000 mg by mouth once daily. 0 Active Comment on above: [facility] cholecalciferol 0.05 mg oral tablet (6 sources) Vitamin D Start: 09-30-19 14 take 2 tablets by mouth once daily Cholecalciferol (Vitamin D3) (Vitamin D3) 2,000 UNIT tablet Active 4000 U PO DAILY September 29, 2013 12:00am 1.5 ml fremanezumab-vfrm 150 mg/ml auto-injector (3 sources) Start: 01-20-20 Fremanezumab-Vfrm (Ajovy Autoinjector) 225 mg/1.5 mL auto-injector Active mg SC January 19, 2023 12:00am Znqq-Zwrofr-Rnw 1-I-Yuld-[place] 938-717-22-1-3 mg tablet (1 source) Start: 01-20-20 Aaif-Uaucfi-Yxb 0-T-Rpuk-[place] 010-368-38-1-3 mg tablet Active {tbl} PO January 19, 2023 12:00am Ckwl-Srtsdw-Zml#7-C-Jeanmarie -[place] (2 sources) Start: 01-20-20 Xttc-Lligfn-Qgj#7-C-Man g-[place] Active TABLET PO January 19, 2023 12:00am levothyroxine sodium 0.05 mg oral tablet (20 sources) l-Thyroxine Start: 01-07-20 12 take 1 tablet by mouth once daily Levothyroxine 50 MCG tablet Active 50 ug PO DAILY July 24, 2014 1:00am Comment on above: Take 1 tablet by [facility] once daily. Magnesium (6 sources) Start: 09-30-19 14 take 500 mg by mouth once daily Magnesium Active 500 MG PO DAILY September 29, 2013 1:09pm Start: 09-29-2013 take 2 tablets by mo [facility] once daily Magnesium 250 MG tablet Active 500 mg PO DAILY September 29, 2013 12:00am Start: 09-29-2013 take 500 mg by mouth once ayde y Magnesium Active 500 MG PO DAILY September 29, 2013 12:00am Multivitamin With Folic Acid (Thera) 1 TABLET tablet (6 sources) Start: 09-29-2013 take 1 tablet by mouth once daily Multivitamin With Folic Acid (Thera) 1 TABLET tablet Active 1 TABLET PO DAILY September 29, 2013 1:09pm Start: 09-29-2013 End: 01-19-2023 take 1 tablet by mouth once daily Multivitamin With Folic Acid (Thera) 1 TABLET tablet Discontinued 1 {tbl} PO DAILY September 29, 2013 12:00am January 19, 2023 10:56am Start: 09-29-2013 End: 01-19-2023 take 1 tablet by mouth once daily Multivitamin With Folic Acid (Thera) 1 TABLET tablet Discontinued 1 TABLET PO DAILY September 29, 2013 12:00am January 19, 2023 10:56am Start: 09-29-2013 take 1 tablet by wilver [facility] once daily Multivitamin With Folic Acid (Thera) 1 TABLET tablet Active 1 TABLET PO DAILY September 29, 2013 12:00am naratriptan 2.5 mg oral tablet (20 sources) Serotonin-1b and Serotonin-1d Receptor Agonist Start: 09-29-2013 Naratriptan (Amerge) 2.5 MG tablet Active 2.5 mg PO NEEDED as needed for Headache September 29, 2013 12:00am Comment on above: 1 po at migraine ons et. Mar rptX1 prn after 4h for recurrence Max 10d/month Take one tablet twic e daily for 2 days, then one tablet daily until you are 24 hours headache free or until all 9 pills are gone. Do NOT take any other triptans or pain pills during this time. [place] 7-Cuh-Gfv-Fish Oil (Fish Oil) 1,200 (144-216) mg capsule (3 sources) Start: 01-19-2023 [place] 3-Dha-Ep a-Fish Oil (Fish Oil) 1,200 (144-216) mg capsule Active NMA PO January 19, 2023 12:00am Start: 01-19-2023 [place] 3-Dha-Ep a-Fish Oil (Fish Oil) 1,200 (144-216) mg capsule Active CAP PO January 19, 2023 12:00am quercetin 500 mg oral capsul e (3 sources) Start: 01-19-2023 Quercetin 500 mg capsule Active mg PO January 19, 2023 12:00am Start: 01-19-2023 Quercetin Acti ve MG PO January 19, 2023 12:00am rOPINIRole 0.5 mg oral tablet (20 sources) Nonergot Dopamine Agonist Start: 05-05-2021 End: 07-14-2022 take 1 tablet by mouth at bedtime Ropinirole 0.5 mg Tablet Active 0.5 mg PO AT BEDTIME May 05, 2021 1:00am Comment on above: 1 - 2 tabs qhs for R LS Strontium (3 sources) Start: 01-19-2023 Strontium Nulsibajx-A6-Qy-B1 2 680-30 mg tablet Active {tbl} PO January 19, 2023 12:00am Start: 01-19-2023 Strontium Gluc zoesg-O5-A56-Fa Active TABLET PO January 19, 2023 12:00am traMADol hydrochloride 50 mg oral tablet (20 sources) Opioid Agonist Start: 05-05-2021 take 1 tablet by mouth twice daily as needed for pain Tramadol 50 mg Tablet Active 50 mg PO TWICE A DAY as needed for Pain May 05, 2021 1:00am Start: 12-15-2016 traMADol (ULTR AM) 50 mg tablet as needed. 2 12/15/2016 Active Comment on above: as needed. traZODone hydrochloride 100 mg oral tablet (19 sources) Serotonin Reuptake Inhibitor Start: 01-19-2023 Trazodone 100 mg tablet Active 50 mg PO THREE TIMES A DAY as needed January 19, 2023 12:00am Start: 01-19-2023 take 50 mg by mouth three times daily Trazodone Active 50 MG PO THREE TIMES A DAY January 19, 2023 12:00am trazodone HCl (T RAZODONE ORAL) Take 50 tablets by mouth. 1-3 tablets 0 Active Comment on above: Take 50 tablets by m outh. 1-3 tablets Turmeric extract (3 sources) Start: 01-19-2023 Turmeric (Bulk ) (Curcumin) 95 % powder Active NMA MC January 19, 2023 12:00am Start: 01-19-2023 Turmeric (Bulk ) (Curcumin) 95 % powder Active EACH MC January 19, 2023 12:00am Vitamin B Complex (2 sources) Start: 01-19-2023 take 1 capsule by mouth once daily Vitamin B Complex Active 1 CAP PO DAILY January 19, 2023 12:00am Vitamin B Complex capsule (1 source) Start: 01-19-2023 Vitamin B Comp justina capsule Active 1 NMA PO DAILY January 19, 2023 12:00am vitamin k2 0.1 mg oral capsule (3 sources) Start: 01-19-2023 Vitamin K2 100 mcg capsule Active 100 ug PO DAILY January 19, 2023 12:00am zinc acetate 50 mg oral capsule (3 sources) Start: 01-19-2023 take 1 capsule by mouth once daily Zinc Acetate 50 mg (zinc) capsule Active 50 mg PO DAILY January 19, 2023 12:00am ZOLMitriptan 5 mg/actuat nasal spray (3 sources) Serotonin-1b and Serotonin-1d Receptor Agonist Start: 01-19-2023 Zolmitriptan 5 mg spray,non-aerosol Active 1 NMA INTRANASAL ONCE as needed January 19, 2023 12:00am Start: 01-19-2023 Zolmitriptan A ctive 1 SPRAY INTRANASAL ONCE January 19, 2023 12:00am Completed/Discontinued Medications Medication Drug Class(es) Dates Sig (Normalized) Sig (Original) amphetamine aspartate 2.5 mg / amphetamine sulfate 2.5 mg / dextroamphetamine saccharate 2.5 mg / dextroamphetamine sulfate 2.5 mg oral tablet (20 sources) Central Nervous System Stimulant Start: 11-20-2021 take 1 tablet by mouth three times daily as needed dextroamphetamin e-amphetamine (ADDERALL) 10 mg tablet TAKE 1 TABLET BY MOUTH THREE TIMES A DAY NEEDED FOR FATIGUE OR NARCOLEPSY 0 11/20/2021 Active Start: 05-05-2021 take 1 tablet by [facility] once daily as needed Dextroamphetamine-Amphetamine (Adderall) 10 mg Tablet Active 10 mg PO DAILY as needed for narcolepsy May 05, 2021 1:00am Start: 05-05-2021 End: 01-19-2023 take 1 capsule by mouth once daily as needed, then take 1 capsule by mouth every twenty-four hours as needed Dextroamphetamine-Amphetamine (Adderall Xr) 30 mg Capsule,Extended Release 24hr Discontinued 30 mg PO DAILY as needed for narcolepsy May 05, 2021 1:00am January 19, 2023 10:55am Comment on above: [facility] NEEDED FOR FATIGUE OR NARCOLEPSY onabotulinumtoxina 100 unt injection (20 sources) Acetylcholine Release Inhibitor Start: 09-15-2022 End: 09-15-2022 onabotulinum toxin type A 200 Units injection (BOTOX) Start: 06-09-2022 End: 06-09-2022 onabotulinum toxin type A 20 0 Units injection (BOTOX) Start: 03-03-2022 End: 03-03-2022 onabotulinum toxin type A 20 0 Units injection (BOTOX) Start: 12-02-2021 End: 12-02-2021 onabotulinum toxin type A 20 0 Units injection (BOTOX) Start: 09-02-2021 End: 09-02-2021 onabotulinum toxin type A 20 0 Units injection (BOTOX) Start: 06-03-2021 onabotulinum t oxin type A 200 Units injection (BOTOX) calcium carbonate 1250 mg oral tablet (6 sources) Start: 09-29-2013 End: 01-19-2023 Calcium Carbonate (Oyster Shell Calcium 500) 500 MG tablet Discontinued 1500 U PO TWICE A DAY September 29, 2013 12:00am January 19, 2023 10:55am calcium, elemental, tab (17 sources) take 2 tablets by mouth twice daily calcium, elemental, tab Take by mouth twice daily. TWO TABLETS DAILY 0 Active Comment on above: Take by mouth twice daily. TWO TABLETS DAILY cholecalciferol, vitamin D3, (VITAMIN D3 ORAL) (16 sources) take 1 capsule by mouth once daily cholecalciferol, vitamin D3, (VITAMIN D3 ORAL) Take 1 capsule by mouth once daily. 0 Active Comment on above: Take 1 capsule by mo [facility] once daily. 1 ml dexamethasone phosphate 4 mg/ml injection (3 sources) Corticosteroid End: 12-02-2021 dexAMETHasone sodium phosphate (DECADRON) 4 mg/mL Take 4 mg by mouth. 0 12/02/2021 Discontinued Comment on above: Take 4 mg by mouth. hydroCHLOROthiazide 25 mg oral tablet (17 sources) Thiazide Diuretic Start: 12-23-2017 End: 09-15-2022 hydroCHLOROthiazide (HYDRODIURIL, ESIDRIX) 25 mg tablet magnesium citrate 100 mg oral tablet (17 sources) magnesium citrat e 100 mg tab Take by mouth once daily. 0 Active Comment on above: Take by mouth once d aily. multivitamin tablet (17 sources) Start: 01-07-2012 take 1 tablet by mouth once daily multivitamin tablet Take 1 tablet by mouth once daily. 0 01/07/2012 Active Comment on above: Take 1 tablet by [facility] once daily. ondansetron 8 mg oral tablet (20 sources) Serotonin-3 Receptor Antagonist Start: 02-14-2020 End: 07-14-2022 take 1 tablet by mouth once daily as needed for nausea ondansetron (ZOFRAN) 8 mg tablet Take 1 tablet by mouth once daily as needed for nausea/vomiting. 30 tablet 5 07/14/2022 Active Start: 09-29-2013 take 1 tablet by wilver th every eight hours as needed for nausea Ondansetron Hcl 8 MG tablet Active 8 mg PO EVERY 8 HOURS NEEDED as needed for Nausea September 29, 2013 12:00am Comment on above: Take 1 tablet by [facility] once daily as needed. FOR NAUSEA Take 1 tablet by [facility] th once daily as needed for nausea/vomiting. raloxifene hydrochloride 60 mg oral tablet (3 sources) Estrogen Agonist/Antagonist Start: 12-12-19 End: 12-03-19 22 take 1 tablet by mouth once daily raloxifene (EVISTA) 60 mg tablet Take 60 mg by mouth once daily. 0 12/11/2020 12/02/2021 Discontinued Comment on above: Take 60 mg by mouth once daily. rimegepant 75 mg disintegrating oral tablet (18 sources) Start: 12-03-19 End: 09-16-19 23 rimegepant (NURTEC ODT) 75 mg disintegrating tablet TAKE 1 TABLET AT ONSET OF HEADACHE/MIGRAINE. ONLY TAKE 1 TABLET SINGLE DOSE IN 24 HOUR PERIOD. 8 tablet 2 07/06/2022 09/15/2022 Discontinued (Discontinued by Patient) Comment on above: Take 1 tablet at ons et of headache/migraine. Only take 1 tablet as single dose in 24 hour period. valACYclovir 500 mg oral tablet (1 source) Herpesvirus Nucleoside Analog DNA Polymerase Inhibitor, Herpes Simplex Virus Nucleoside Analog DNA Polymerase Inhibitor, Herpes Zoster Virus Nucleoside Analog DNA Polymerase Inhibitor Start: 05-27-19 End: 06-01-19 take 1 tablet by mouth every twelve hours Valacyclovir (Valtrex) 500 mg tablet Discontinued 500 mg PO Q12H 10 5 0 May 27, 2023 1:00am May 31, 2023 1:00am June 01, 2023 1:04am Problems Active Problems Problem Classification Problem Date Documented Da te Episodic/Chronic Allergic reactions (3 sources) Environmental allergy; Translations: [Other allergy status, other than to drugs and biological substances] 01-19-2023 Episodic Anxiety disorders (6 sources) Anxiety; Translations: [Anxiety disorder, unspecified] 07-24-2014 Chronic Attention-deficit, conduct, and disruptive behavior disorders (3 sources) Deformity of eyelid; Translations: [Other symptoms and signs involving appearance and behavior] 03-02-2023 Episodic Attention-deficit, conduct, and disruptive behavior disorders (2 sources) Other symptoms and signs involving appearance and behavior; Translations: [Other general symptoms] 01-28-2023 Episodic Deficiency and other anemia (6 sources) Anemia; Translations: [Anemia, unspecified] 07-24-2014 Episodic Disorders of lipid metabolism (2 sources) Pure hypercholesterolemia, unspecified; Translations: [Pure hypercholesterolemia, unspecified] Onset: 06-05-2024 Chronic Essential hypertension (6 sources) Hypertensive disorder; Translations: [Essential (primary) hypertension] 05-05-2021 Chronic Gastroduodenal ulcer (except hemorrhage) (6 sources) Peptic ulcer; Translations: [Peptic ulcer, site unspecified, unspecified as acute or chronic, without hemorrhage or perforation] 07-24-2014 Chronic Headache; including migraine (20 sources) Chronic intractable migraine without aura; Translations: [Chronic migraine without aura, intractable, without status migrainosus] Onset: 04-30-2005 Chronic Non-Hodgkin`s lymphoma (6 sources) History of non-Hodgkins lymphoma; Translations: [Personal history of non-Hodgkin lymphomas] 07-24-2014 Episodic Comment on above: 21 years ago Nonspecific chest pain (6 sources) Chest pain; Translations: [Chest pain, unspecified] 05-16-2021 Episodic Other bone disease and musculoskeletal deformities (3 sources) Finding of ankle or foot; Translations: [Solitary bone cyst] Episodic Other bone disease and musculoskeletal deformities (6 sources) Osteopenia; Translations: [Other specified disorders of bone density and structure, unspecified site] 07-24-2014 Episodic Other congenital anomalies (3 sources) Facial asymmetry; 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] 01-19-2023 Chronic Other congenital anomalies (2 sources) Congenital facial asymmetry; 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, face, and jaw] 01-19-2023 Chronic Other connective tissue disease (3 sources) Foot pain; Translations: [Pain in limb] Episodic Other eye disorders (3 sources) Floppy lid syndrome; Translations: [Other disorders affecting eyelid function] 03-02-2023 Episodic Other eye disorders (5 sources) Other disorders of orbit; Translations: [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] 03-02-2023 Episodic Other eye disorders (3 sources) Dermatochalasis of left lower eyelid; Translations: [Dermatochalasis of left lower eyelid] 03-02-2023 Episodic Other eye disorders (3 sources) Dermatochalasis of right lower eyelid; Translations: [Dermatochalasis of right lower eyelid] 03-02-2023 Episodic Other eye disorders (2 sources) Dermatochalasis of left lower eyelid; Translations: [Dermatochalasis] 01-28-2023 Episodic Other eye disorders (2 sources) Dermatochalasis of right lower eyelid; Translations: [Dermatochalasis] 01-28-2023 Episodic Other eye disorders (2 sources) Other disorders affecting eyelid function; Translations: [Other disorders of eyelid] 01-28-2023 Episodic Other gastrointestinal disorders (6 sources) Pelvic mass; Translations: [Intra-abdominal and pelvic swelling, mass and lump, unspecified site] 07-24-2014 Episodic Other lower respiratory disease (6 sources) Dyspnea; Translations: [Shortness of breath] 05-16-2021 Episodic Other lower respiratory disease (6 sources) Cough; Translations: [Cough] 07-24-2014 Episodic Other nervous system disorders (17 sources) Narcolepsy; Translations: [Narcolepsy without cataplexy] Onset: 01-06-2011 01-06-2011 Chronic Other nutritional; endocrine; and metabolic disorders (6 sources) Hypoalbuminemia; Translations: [Other disorders of plasma-protein metabolism, not elsewhere classified] 07-24-2014 Chronic Other nutritional; endocrine; and metabolic disorders (1 source) Hypomagnesemia; Translations: [Hypomagnesemia] Onset: 12-11-2024 Chronic Other skin disorders (3 sources) Thin skin; Translations: [Changes in skin texture] 03-02-2023 Episodic Other skin disorders (3 sources) Intrinsic aging of skin; Translations: [Other atrophic disorders of skin] 01-19-2023 Episodic Other skin disorders (3 sources) Atrophic condition of skin; Translations: [Atrophic disorder of skin, unspecified] 01-19-2023 Episodic Other skin disorders (3 sources) Atrophic disorder of skin, unspecified; Translations: [Unspecified hypertrophic and atrophic conditions of skin] 01-19-2023 Episodic Other skin disorders (3 sources) Other atrophic disorders of skin; Translations: [Other specified hypertrophic and atrophic conditions of skin] 01-19-2023 Episodic Other skin disorders (2 sources) Changes in skin texture; Translations: [Other specified disorders of skin] 01-28-2023 Episodic Pathological fracture (3 sources) Pathological fracture of phalanx of foot; Translations: [Aftercare for healing pathologic fracture of other bone] Episodic Pleurisy; pneumothorax; pulmonary collapse (6 sources) Bilateral pleural effusion; Translations: [Pleural effusion, not elsewhere classified] 07-24-2014 Episodic Residual codes; unclassified (3 sources) Procedure related finding; Translations: [Encounter for cosmetic surgery] 03-02-2023 Episodic Residual codes; unclassified (2 sources) Encounter for cosmetic surgery; Translations: [Other plastic surgery for unacceptable cosmetic appearance] 01-28-2023 Episodic Respiratory failure; insufficiency; arrest (adult) (6 sources) Acute respiratory distress syndrome; Translations: [Acute respiratory distress syndrome] 07-24-2014 Episodic Spondylosis; intervertebral disc disorders; other back problems (2 sources) Other spondylosis with radiculopathy, lumbosacral region; Translations: [Spondylosis without myelopathy or radiculopathy, cervical region] Onset: 06-13-2024 Chronic Thyroid disorders (8 sources) Hypothyroidism; Translations: [Hypothyroidism, unspecified] Onset: 06-05-2024 07-24-2014 Chronic Viral infection (9 sources) Disease caused by 2019-nCoV; Translations: [COVID-19] 05-05-2021 Episodic Past or Other Problems Problem Classification Problem Date Documented Da te Episodic/Chronic Headache; including migraine (17 sources) Headache; Translations: [Headache] Onset: 05-13-2004 05-13-2004 Episodic Lymphadenitis (17 sources) Lymphadenopathy; Translations: [Enlarged lymph nodes, unspecified] Onset: 10-11-2013 10-11-2013 Episodic Other screening for suspected conditions (not mental disorders or infectious disease) (1 source) Encounter for screening mammogram for malignant neoplasm of breast; Translations: [Encounter for screening mammogram for malignant neoplasm of breast] Onset: 04-24-2024 Episodic Spondylosis; intervertebral disc disorders; other back problems (17 sources) Neck pain; Translations: [Cervicalgia] Onset: 05-13-2004 05-13-2004 Episodic Results Test Name Value Interpretation Reference Range Facility Spine Lumbar (Routine)on Spine Lumbar (Routine) [facility] Imaging Services [address] [place] [address] Spine Lumbar (Routine) MR#: [id number] Acct: [id number] Name: LIGIA HANLEY Rep #: [id number] : [id number] F 64 From: Tim tafoya MD PCP: Dr. Micaela Pelayo DO Status: REG CLI Study: Spine Lumbar (Routine) Date of Exam: 02/21/25 Exam# [id number] Ordering Dr: Micaela Pelayo DO PROCEDURE: SPINE LUMBAR (ROUTINE) 02/21/2025 REASON FOR EXAM: OTHER SPONDYLOSIS WITH RADICULOPATHY, R LUMBOSACRAL REGION TECHNIQUE: Procedure Code: MRISPL Modality: MR Procedure: SPINE LUMBAR (ROUTINE) COMPARISON: None FINDINGS: Vertebrae: There are 5 lumbar-type vertebral bodies. Heterogeneous marrow signal present. There is no bone marrow edema to suggest fracture. Old compression deformity of the superior endplate of L4 is noted. Alignment: No scoliosis. No violeta or retrolisthesis. Conus Medullaris: The conus medullaris ends normally at T12-L1. The distal spinal cord has a normal course caliber and signal. L1-2: Diffuse disc desiccation and disc bulge. Facet arthropathy and ligamentum flavum hypertrophy. No central or foraminal stenosis L2-3: Small right paracentral protrusion minimally indenting the thecal sac with slight narrowing of the right lateral recess. Facet arthropathy and ligamentum flavum hypertrophy. No foraminal stenosis. L3-4: Diffuse disc desiccation. Facet arthropathy and ligamentum flavum hypertrophy. No central or foraminal stenosis. L4-5: Diffuse disc desiccation and disc bulge. Facet arthropathy and ligamentum flavum hypertrophy. Mild central stenosis. Mild bilateral foraminal encroachment L5-S1: Diffuse disc desiccation and mild disc bulge. Facet arthropathy and ligamentum flavum hypertrophy. No central stenosis. Sacrum: What is seen of the sacrum appears normal. Visible SI joints are unremarkable. Retroperitoneal soft tissues are normal. No lymphadenopathy or aneurysm. MRI/Spine Lumbar (Routine) IMPRESSION: Mild multilevel degenerative disc disease and facet arthropathy without significant central or foraminal stenosis. Tiny right paracentral protrusion at L2-3 slightly abutting the thecal sac and narrowing the right lateral recess. Reading Location: [id number] CC: Dr. Micaela Pelayo DO [facility] [employer] Supervisor: Signed Normal [facility] Anion gap in Serum or Plasma Ordered By: SAMMI KING on 12-06-2024 Anion gap [Moles/Vol] 11 mmol/L 5-15 [facility] BUN/creatinine ratioOrdered By: SAMMI KING on 12-06-2024 Urea nitrogen/Creatinine [Mass ratio] 19.3 mg/mg 10-[address] [facility] Bilirubin, totalOrdered By: SAMMI KING on 12-06-2024 Bilirubin [Mass/Vol] 0.52 mg/dL 0.00-1.30 [facility] Carbon dioxide, total [Moles /volume] in Central venous bloodOrdered By: SAMMI KING on 12-06-2024 CO2 [Moles/Vol] 24.0 mmol/L 21.0-32.[address] [facility] Chloride assayOrdered By: ME PHILLIP KING on 12-06-2024 Chloride [Moles/Vol] 104 mmol/L 98-108 [facility] Comprehensive Metabolic Prof ilon 12-06-2024 Albumin [Mass/Vol] 4.2 g/dL Normal 3.4-4.8 [facility] Comment on above: Performed By: #### L 501.9520, L501.5200, L500.4050 #### [facility] [address] [place], [address] Albumin/Globulin [Mass ratio] 1.9 {ratio} Normal 0.9-2.[address] [facility] Comment on above: Performed By: #### L 501.9520, L501.5200, L500.4050 #### [facility] [address] [place], [address] ALK PHOS 104 U/L Normal 35-[address] [facility] Comment on above: Performed By: #### L 501.9520, L501.5200, L500.4050 #### [facility] [address] [place], [address] ALT [Catalytic activity/Vol] 27 U/L Normal <=[address] [facility] Comment on above: Performed By: #### L 501.9520, L501.5200, L500.4050 #### [facility] [address] [place], [address] AST [Catalytic activity/Vol] 27 U/L Normal <=[address] [facility] Comment on above: Performed By: #### L 501.9520, L501.5200, L500.4050 #### [facility] [address] [place], [address] Bilirubin [Mass/Vol] 0.52 mg/dL Normal 0.00-1.30 [facility] Comment on above: Performed By: #### L 501.9520, L501.5200, L500.4050 #### [facility] [address] [place], [address] BUN/CRE 19.3 RATIO Normal 10-[address] [facility] Comment on above: Performed By: #### L 501.9520, L501.5200, L500.4050 #### [facility] [address] [place], [address] Calcium [Mass/Vol] 9.5 mg/dL Normal 7.6-11.0 [facility] Comment on above: Performed By: #### L 501.9520, L501.5200, L500.4050 #### [facility] [address] [place], [address] Chloride [Moles/Vol] 104 mmol/L Normal 98-108 [facility] Comment on above: Performed By: #### L 501.9520, L501.5200, L500.4050 #### [facility] [address] [place], [address] CO2 [Moles/Vol] 24.0 mmol/L Normal 21.0-32.[address] [facility] Comment on above: Performed By: #### L 501.9520, L501.5200, L500.4050 #### [facility] [address] [place], [address] Creatinine [Mass/Vol] 0.91 mg/dL Normal 0.70-1.20 [facility] Comment on above: Performed By: #### L 501.9520, L501.5200, L500.4050 #### [facility] [address] [place], [address] GAP 11 Normal 5-[address] [facility] Comment on above: Performed By: #### L 501.9520, L501.5200, L500.4050 #### [facility] [address] [place], [address] GFR/1.73 sq M.predicted among non-blacks MDRD (S/P/Bld) [Vol rate/Area] 69 mL/min/{1.73_m2} Normal >[address] [facility] Comment on above: Result Comment: mL/m in/1.73m2 CKD-EPI Creatinine Equation (2020) Performed By: #### L 501.9520, L501.5200, L500.4050 #### [facility] [address] [place], [address] Globulin (S) [Mass/Vol] 2.2 g/dL Normal 2.2-4.[address] [facility] Comment on above: Performed By: #### L 501.9520, L501.5200, L500.4050 #### [facility] [address] [place], [address] Glucose [Mass/Vol] 92 mg/dL Normal 70-99 [facility] Comment on above: Performed By: #### L 501.9520, L501.5200, L500.4050 #### [facility] [address] [place], [address] Potassium [Moles/Vol] 4.2 mmol/L Normal 3.3-5.1 [facility] Comment on above: Performed By: #### L 501.9520, L501.5200, L500.4050 #### [facility] [address] [place], [address] Sodium [Moles/Vol] 138 mmol/L Normal 133-145 [facility] Comment on above: Performed By: #### L 501.9520, L501.5200, L500.4050 #### [facility] [address] [place], [address] T PROT 6.4 g/dL Normal 5.9-8.[address] [facility] Comment on above: Performed By: #### L 501.9520, L501.5200, L500.4050 #### [facility] [address] [place], [address] Urea nitrogen [Mass/Vol] 18 mg/dL Normal 4-[address] [facility] Comment on above: Performed By: #### L 501.9520, L501.5200, L500.4050 #### [facility] [address] [facility] [place], [place], [address] Glomerular filtration rate ( GFR) estimation/1.73 sq m using serum, plasma, or whole bOrdered By: SAMMI KING on 12-06-2024 GFR/1.73 sq M.predicted among non-blacks MDRD (S/P/Bld) [Vol rate/Area] 69 mL/min/{1.73_m2} >[address] [facility] Comment on above: mL/min/1.73m2 CKD-EP I Creatinine Equation (2020) Laboratory - Chemistry and C hemistry - challengeOrdered By: SAMMI KING on 12-06-2024 AST [Catalytic activity/Vol] 27 U/L <[address] [facility] Magnesiumon 12-06-2024 Magnesium [Mass/Vol] 2.3 mg/dL High 1.5-2.2 [facility] Comment on above: Performed By: #### L 501.9520, L501.5200, L500.4050 #### [facility] [address] [facility] [place], [address] Magnesium measurement (mass/ volume)Ordered By: SAMMI KING on 12-06-2024 Magnesium (Unsp spec) [Mass/Vol] 2.3 mg/dL High 1.5-2.[address] [facility] Potassium measurement (mass/ volume)Ordered By: SAMMI KING on 12-06-2024 Potassium (Unsp spec) [Mass/Vol] 4.2 mmol/L 3.3-5.[address] [facility] Serum creatinine measurement (mass/volume)Ordered By: SAMMI KING on 12-06-2024 Creatinine [Mass/Vol] 0.91 mg/dL 0.70-1.20 [facility] Serum globulin measurementOr dered By: SAMMI KING on 12-06-2024 Globulin (S) [Mass/Vol] 2.2 g/dL 2.2-4.[address] [facility] Serum glucose measurement (m ass/volume)Ordered By: SMAMI KING on 12-06-2024 Glucose [Mass/Vol] 92 mg/dL 70-99 [facility] Serum or plasma alanine covarrubias otransferase (ALT) measurementOrdered By: SAMMI KING on 12-06-2024 ALT [Catalytic activity/Vol] 27 U/L <[address] [facility] Serum or plasma albumin jose alfredo urement (mass/volume)Ordered By: SAMMI KING on 12-06-2024 Albumin [Mass/Vol] 4.2 g/dL 3.4-4.8 [facility] Serum or plasma albumin/glob ulin mass ratioOrdered By: SAMMI KING on 12-06-2024 Albumin/Globulin [Mass ratio] 1.9 {ratio} 0.9-2.[address] [facility] Serum or plasma alkaline debo sphatase measurementOrdered By: SAMMI KING on 12-06-2024 ALP [Catalytic activity/Vol] 104 U/L 35-[address] [facility] Serum or plasma calcium jose alfredo urement (mass/volume)Ordered By: SAMMI KING on 12-06-2024 Calcium [Mass/Vol] 9.5 mg/dL 7.6-11.0 [facility] Serum or plasma urea nitroge n measurement (mass/volume)Ordered By: SAMMI KING on 12-06-2024 Urea nitrogen [Mass/Vol] 18 mg/dL 4-[address] [facility] Sodium levelOrdered By: MARLENY KING on 12-06-2024 Sodium [Moles/Vol] 138 mmol/L 133-145 [facility] TSH DL <= 0.005 mIU/L QnOrde red By: SAMMI KING on 12-06-2024 TSH Qn 1.410 uIU/mL 0.300-4.[address] [facility] Thyroid Stim Hormone (TSH)on 12-06-2024 TSH 1.410 uIU/mL Normal 0.300-4.[address] [facility] Comment on above: Performed By: #### L 501.9532, L501.5200, L500.4050 #### [facility] [address] [place], [place], [address] Total proteinOrdered By: NAHOMY KING on 12-06-2024 Protein [Mass/Vol] 6.4 g/dL 5.9-8.4 [facility] Calcidiolon 06-05-2024 25-hydroxyvitamin D3 [Mass/Vol] 81 ng/mL Normal 30-100 [facility] Comment on above: Order Comment: Defic iency: < 20 ng/ml Insufficiency: 20-29 ng/ml Sufficiency: 30-100 ng/ml This assay accurately quantifies the sum of Vitamin D3, 25-Hydroxy and Vitamin D2,25-Hydroxy. Performed By: #### 1 989-3 #### LAVELL LI ([id number]) [facility] ([facility]) [address] [place] [address] Comprehensive metabolic 2000 panelon 06-05-2024 Albumin BCP dye [Mass/Vol] 4.3 g/dL Normal 3.4-5.0 [facility] Comment on above: Performed By: #### 2 4323-8 #### LAVELL LI ([id number]) [facility] ([facility]) [address] [place] [address] ALP [Catalytic activity/Vol] 89 U/L Normal 33-136 [facility] Comment on above: Performed By: #### 2 4323-8 #### LAVELL LI ([id number]) [facility] ([facility]) [address] [place] [address] ALT With P-5'-P [Catalytic activity/Vol] 22 U/L Normal 7-45 [facility] Comment on above: Result Comment: Sneha ents treated with Sulfasalazine may generate falsely decreased results for ALT. Performed By: #### 2 4323-8 #### LAVELL LI ([id number]) [facility] ([facility]) [address] [place] [address] Anion gap [Moles/Vol] 8 mmol/L Low 10-20 [facility] Comment on above: Performed By: #### 2 4323-8 #### LAVELL LI ([id number]) [facility] ([facility]) [address] [place] [address] AST With P-5'-P [Catalytic activity/Vol] 25 U/L Normal 9-39 [facility] Comment on above: Performed By: #### 2 4323-8 #### LAVELL LI ([id number]) [facility] ([facility]) [address] [place] [address] Bilirubin [Mass/Vol] 0.6 mg/dL Normal 0.0-1.2 [facility] Comment on above: Performed By: #### 2 4323-8 #### LAVELL LI ([id number]) [facility] ([facility]) [facility] [place] [address] Calcium [Mass/Vol] 9.3 mg/dL Normal 8.6-10.3 [facility] Comment on above: Performed By: #### 2 4323-8 #### LAVELL LI ([id number]) [facility] ([facility]) [address] [place] [address] Chloride [Moles/Vol] 104 mmol/L Normal 98-107 [facility] Comment on above: Performed By: #### 2 4323-8 #### LAVELL LI ([id number]) [facility] ([facility]) [address] [place] [address] CO2 [Moles/Vol] 29 mmol/L Normal 21-32 [facility] Comment on above: Performed By: #### 2 4323-8 #### LAVELL LI ([id number]) [facility] ([facility]) [facility] [place] [address] Creatinine [Mass/Vol] 0.76 mg/dL Normal 0.50-1.05 [facility] Comment on above: Performed By: #### 2 4323-8 #### LAVELL LI ([id number]) [facility] ([facility]) [address] [place] [address] Glomerular filtration rate/1.73 sq M.predicted 87 mL/min/1.73m*2 Normal >60 [facility] Comment on above: Result Comment: Calc ulations of estimated GFR are performed using the 2020 CKD-EPI Study Refit equation without the race variable for the IDMS-Traceable creatinine methods. https://jasn.asnjournals.org/content//ASN.16848 55305 Performed By: #### 2 4323-8 #### LAVELL LI ([id number]) [facility] ([facility]) [facility] [place] [address] Glucose [Mass/Vol] 88 mg/dL Normal 74-99 [facility] Comment on above: Performed By: #### 2 4323-8 #### LAVELL LI ([id number]) [facility] ([facility]) [address] [place] [address] Potassium [Moles/Vol] 4.2 mmol/L Normal 3.5-5.3 [facility] Comment on above: Performed By: #### 2 4323-8 #### LAVELL LI ([id number]) [facility] ([facility]) [address] [place] [address] Protein [Mass/Vol] 6.5 g/dL Normal 6.4-8.2 [facility] Comment on above: Performed By: #### 2 4323-8 #### LAVELL LI (63262) [facility] ([facility]) [address] [place] [address] Sodium [Moles/Vol] 137 mmol/L Normal 136-145 [facility] Comment on above: Performed By: #### 2 4323-8 #### LAVELL LI ([id number]) [facility] ([facility]) [facility] [place] [address] Urea nitrogen [Mass/Vol] 15 mg/dL Normal 6-23 [facility] Comment on above: Performed By: #### 2 4323-8 #### LAVELL LI ([id number]) [facility] ([facility]) [address] [place] [address] Lipid 1996 panelon 5 Cholesterol [Mass/Vol] 199 mg/dL Normal 0-199 [facility] Comment on above: Result Comment: Age Desirable Borderline High High 0-19 Y 0 - 169 170 - 199 >/= 200 20-24 Y 0 - 189 190 - 224 >/= 225 >24 Y 0 - 199 200 - 239 >/= 240 All ranges are based on fasting samples. Specific therapeutic targets will vary based on patient-specific cardiac risk. Pediatric guidelines reference:Pediatrics 2011, 128(S5).Adult guidelines reference: NCEP ATPIII Guidelines,DARCI 2001, 258:2486-97 Venipuncture immediately after or during the administration of Metamizole may lead to falsely low results. Testing should be performed immediately prior to Metamizole dosing. Performed By: #### 2 4331-1 #### LAVELL LI ([id number]) [facility] ([facility]) [facility] [place] [address] Cholesterol in HDL [Mass/Vol] 99.0 mg/dL Normal [facility] Comment on above: Result Comment: Age Very Low Low Normal High 0-19 Y < 35 < 40 40-45 ---- 20-24 Y ---- < 40 >45 ---- >24 Y ---- < 40 40-60 >60 Performed By: #### 2 4331-1 #### LAVELL LI (17779) [facility] ([facility]) [facility] [place] [address] Cholesterol in LDL [Mass/Vol] 91 mg/dL Normal <=99 [facility] Comment on above: Result Comment: Near Borderline AGE Desirable Optimal High High Very High 0-19 Y 0 - 109 --- 110-129 >/= 130 ---- 20-24 Y 0 - 119 --- 120-159 >/= 160 ---- >24 Y 0 - 99 100-129 130-159 160-189 >/=190 Performed By: #### 2 4331-1 #### LAVELL LI (87793) [facility] ([facility]) [facility] [place] [address] Cholesterol in VLDL [Mass/Vol] 9 mg/dL Normal 0-40 [facility] Comment on above: Performed By: #### 2 4331-1 #### LAVELL LI ([id number]) [facility] ([facility]) [facility] [place] [address] CHOLESTEROL/HDL RATIO 2.0 Normal [facility] Comment on above: Result Comment: Ref Values Desirable < 3.4 High Risk > 5.0 Performed By: #### 2 4331-1 #### LAVELL LI ([id number]) [facility] ([facility]) [facility] [place] [address] NON HDL CHOLESTEROL 100 mg/dL Normal 0-149 [facility] Comment on above: Result Comment: Age Desirable Borderline High High Very High 0-19 Y 0 - 119 120 - 144 >/= 145 >/= 160 20-24 Y 0 - 149 150 - 189 >/= 190 ---- >24 Y 30 mg/dL above LDL Cholesterol goal Performed By: #### 2 4331-1 #### LAVELL LI ([id number]) [facility] ([facility]) [address] [place] [address] Triglyceride [Mass/Vol] 47 mg/dL Normal 0-149 [facility] Comment on above: Result Comment: Age Desirable Borderline High Very High SEX:B mg/dL mg/dL mg/dL mg/dL <=14D 86-277 ---- ---- ---- 15D-365D 55-277 ---- ---- ---- 1Y-9Y 0-74 75-99 >=100 ---- 10Y-19Y 0-89 90-129 >=130 ---- 20Y-24Y 0-114 115-149 >=150 ---- >= 25Y 0-149 150-199 200-499 >=500 Venipuncture immediately after or during the administration of Metamizole may lead to falsely low results. Testing should be performed immediately prior to Metamizole dosing. Performed By: #### 2 4331-1 #### LAVELL LI ([id number]) [facility] ([facility]) [facility] [place] [address] Thyrotropinon 06-05-2024 TSH Qn 2.32 m[IU]/L Normal 0.44-3.98 [facility] Comment on above: Order Comment: TSH t esting is performed using different testing methodology at [facility] than at other [facility]. Direct result comparisons should only be made within the same method. Performed By: #### 3 016-3 #### LAVELL LI ([id number]) [facility] ([facility]) [address] [place] [address] Cerv Spine 4 or 5 Viewson Cerv Spine 4 or 5 Views [facility] Services [address] [place] [address] Cerv Spine 4 or 5 Views MR#: [id number] Acct: [id number] Name: LIGIA HANLEY Rep #: [id number] : 1960 F 63 From: Abelardo Fernandez MD PCP: Dr. Micaela Pelayo DO Status: REG CLI Study: Cerv Spine 4 or 5 Views Date of Exam: 05/05/24 Exam# [id number] Ordering Dr: Vicki Sinclair [employer] [id number] EXAM: XR CERVICAL SPINE, 4 OR 5 VIEWS CLINICAL INDICATION: PAIN AND ARTHRITIS TECHNIQUE: Frontal, lateral and bilateral oblique views of the cervical spine. COMPARISON: Cervical spine plain film from 10/02/2022 FINDINGS: VERTEBRAE: Stable grade 1 anterolisthesis of C4 on C5. Preserved vertebral body height. No acute fracture. No spondylolisthesis. Preservation of the normal cervical lordosis. No significant facet arthropathy. DISC SPACES: Stable osseous encroachment of the left neural foramen at C4/5 and C5/6. Degenerative changes of the intervertebral discs. SOFT TISSUES: Unremarkable. No prevertebral soft tissue widening. LUNG APICES: Clear. RAD/Cerv Spine 4 or 5 Views IMPRESSION: 1. No acute injuries identified involving the cervical spine. 2. Degenerative changes. 3. Stable grade 1 anterolisthesis of C4 on C5. 4. Stable osseous encroachment of the left neural foramen at C4/5 and C5/6. Electronically Signed: Abelardo Fernandez MD at 12:23 EST , CC: NITA Sinclair; Dr. Micaela Pelayo DO [facility] Supervisor: Signed Normal [facility] L/S Spine Min 4 Viewson 04-23 3-2024 L/S Spine Min 4 Views [facility] Imaging Services [address] [place] [address] L/S Spine Min 4 Views MR#: [id number] Acct: [id number] Name: LIGIA HANLEY Rep #: [id number] : 1960 F 63 From: Abelardo Fernandez MD PCP: Dr. Micaela Pelayo DO Status: REG CLI Study: L/S Spine Min 4 Views Date of Exam: 05/05/24 Exam# [id number] Ordering Dr: Vicki Sinclair [employer] [id number] EXAM: XR LUMBOSACRAL SPINE, 4 OR 5 VIEWS CLINICAL INDICATION: PAIN AND ARTHRITIS TECHNIQUE: Frontal, lateral and bilateral oblique views of the lumbar spine. COMPARISON: 10/02/2022 FINDINGS: VERTEBRAE: Minimal chronic superior endplate compression deformity of L4. Facet joint hypertrophy of the lower lumbar spine. No spondylolisthesis. Preservation of the normal lumbar lordosis. DISC SPACES: No acute findings. Disc spaces are maintained. GASTROINTESTINAL TRACT: Unremarkable as visualized. Included bowel gas pattern is non-obstructive. RAD/L/S Spine Min 4 Views IMPRESSION: 1. Minimal chronic superior endplate compression deformity of L4. 2. Facet joint hypertrophy of the lower lumbar spine. Electronically Signed: Abelardo Fernandez MD at 12:21 EST , CC: NITA Sinclair; Dr. Micaela Pelayo DO Chest Painting And Sealing Supervisor: Signed Normal [facility] SCRN MAMM (CAD)W/YONI BILATo n 04-14-2024 SCRN MAMM (CAD)W/YONI BILAT [facility] Imaging Services [address] [place] [address] SCRN MAMM (CAD)W/YONI BILAT MR#: [id number] Acct: [id number] Name: LIGIA HANLEY Rep #: [id number] : 1960 F 63 From: Akash trevino MD PCP: Dr. Micaela Pelayo, DO Status: REG CL Study: SCRN MAMM (CAD)W/YONI BILAT Date of Exam: 03/25 07/17 Exam# [id number] Ordering Dr: Vicki Sinclair [employer] [id number] MAMMOGRAPHY - BILATERAL SCREENING REASON FOR EXAM: Female, 63 years old. Routine annual screening examination. PERTINENT HISTORY: Grandmother with breast cancer. Remote history of non-Hodgkin''s lymphoma. TECHNIQUE: Digital bilateral breast yoni (3D mammographic acquisition) in the CC and MLO projections. 2-D mediolateral oblique (MLO) and craniocaudad (CC) views of both breasts were obtained. CAD: Full Field Digital Mammography with Computer Added Detection was performed. COMPARISON: Comparison is made with prior study March 09, 2023 and July 07, 2021. FINDINGS: Breast Composition: The breasts are extremely dense, which lowers the sensitivity of mammography. There are no dominant masses or suspicious calcifications. No other significant abnormalities are identified. There has been no significant change since the prior study. BI/SCRN MAMM (CAD)W/YONI BILAT IMPRESSION: Stable bilateral screening mammogram. Yearly follow-up mammogram recommended. (A) ASSESSMENT CATEGORY: BIRADS Category 1: Negative. A letter regarding these results will be sent to the patient by the facility within 30 days. Approximately 10% of breast cancers are not detected by mammography. A normal mammogram should not delay biopsy of a clinically suspicious abnormality. [id number] Electronically Signed: Akash Calzada MD at 12:10 EST , CC: NITA Sinclair; Dr. Micaela Pelayo DO Chest Painting And Sealing Supervisor: Signed Normal [facility] Basophil percentageOrdered B y: Tim Harrison on 12-02-2022 Bilirubin [Mass/Vol] 0.80 mg/dL 0.20-1.00 [facility] Comment on above: For patients on eltr ombopag therapy, use of Dimension [place] TBIL is not recommended. Chloride [Moles/Vol] 106 mmol/L 98-107 [facility] Glucose [Mass/Vol] 111 mg/dL 74-106 [facility] Comment on above: Fasting Glucose resu lt from 100 to 125 mg/dL suggests IMPAIRED HOMEOSTASIS per A.D.A. criteria. Potassium [Moles/Vol] 3.7 mmol/L 3.5-5.1 [facility] Protein [Mass/Vol] 6.9 g/dL 6.4-8.2 [facility] Sodium [Moles/Vol] 140 mmol/L 136-145 [facility] Laboratory - Chemistry and C hemistry - challengeOrdered By: Tim Harrison on 12-02-2022 ALP [Catalytic activity/Vol] 113 U/L 45-[address] [facility] ALT [Catalytic activity/Vol] 32 U/L 13-[address] [facility] CO2 [Moles/Vol] 30.0 mmol/L 21.0-32.[address] [facility] Globulin (S) [Mass/Vol] 3.2 g/dL 2.2-4.[address] [facility] Urea nitrogen/Creatinine [Mass ratio] 21.1 mg/mg 10-[address] [facility] No Panel InformationOrdered By: Tim Harrison on 12-02-2022 Estimated GFR (MDRD) Amer 99 mL/min >[address] [facility] Comment on above: GFR Calc Estimated GFR (MDRD) Non-Af Amer 82 mL/min >[address] [facility] Comment on above: Non- GFR Calc Serum or plasma albumin jose alfredo urement (mass/volume)Ordered By: Tim Harrison on 12-02-2022 Albumin [Mass/Vol] 3.7 g/dL 3.2-5.0 [facility] Serum or plasma albumin/glob ulin mass ratioOrdered By: Tim Harrison on 12-02-2022 Albumin/Globulin [Mass ratio] 1.2 {ratio} 0.9-2.[address] [facility] Serum or plasma bone alkalin e phosphatase/total alkaline phosphatase ratio (catalyticOrdered By: Tim Harrison on 12-02-2022 ALP Bone [Catalytic fraction] 54 % [address] [facility] Serum or plasma calcium jose alfredo urement (mass/volume)Ordered By: Tim Harrison on 12-02-2022 Calcium [Mass/Vol] 9.0 mg/dL 8.5-10.1 [facility] Serum or plasma creatinine m easurement (mass/volume)Ordered By: Tim Harrison on 12-02-2022 Creatinine [Mass/Vol] 0.76 mg/dL 0.55-1.02 [facility] Comment on above: The validity of the calculated GFR & GFRAA in patients over 70 years has not been determined. Clinical correlation is essential. Serum or plasma intestinal a lkaline phosphatase/total alkaline phosphatase ratio (catOrdered By: Tim Harrison on 12-02-2022 ALP Intest [Catalytic fraction] 8 % 0-[address] [facility] Comment on above: Performed at: [place] [id number] Director: Stan Prieto PhD, Phone: [phone] Serum or plasma liver alkali ne phosphatase/total alkaline phosphatase ratio (catalytiOrdered By: Tim Harrison on 12-02-2022 ALP Liver [Catalytic fraction] 38 % [address] [facility] Serum or plasma urea nitroge n measurement (mass/volume)Ordered By: Tim Harrison on 12-02-2022 Urea nitrogen [Mass/Vol] 16 mg/dL 7-[address] [facility] Thin prep Papanicolaou smear with manual screeningOrdered By: Tim Harrison on 12-02-2022 Thin prep Papanicolaou smear with manual screening 20 U/L 15-[address] [facility] Thin prep Papanicolaou smear with manual screening 4 5-[address] [facility] Thin prep Papanicolaou smear with manual screening 109 IU/L 44-[address] [facility] Basophil percentageOrdered B y: Tim Harrison on 10-20-2022 Bilirubin [Mass/Vol] 0.60 mg/dL 0.20-1.00 [facility] Comment on above: For patients on eltr ombopag therapy, use of Dimension [place] TBIL is not recommended. Chloride [Moles/Vol] 107 mmol/L 98-107 [facility] Glucose [Mass/Vol] 88 mg/dL 74-106 [facility] Potassium [Moles/Vol] 4.5 mmol/L 3.5-5.1 [facility] Protein [Mass/Vol] 6.6 g/dL 6.4-8.2 [facility] Sodium [Moles/Vol] 140 mmol/L 136-145 [facility] Laboratory - Chemistry and C hemistry - challengeOrdered By: Tim Harrison on 10-20-2022 ALP [Catalytic activity/Vol] 121 U/L 45-[address] [facility] ALT [Catalytic activity/Vol] 32 U/L 13-[address] [facility] CO2 [Moles/Vol] 27.0 mmol/L 21.0-32.[address] [facility] Globulin (S) [Mass/Vol] 2.9 g/dL 2.2-4.[address] [facility] Urea nitrogen/Creatinine [Mass ratio] 32.3 mg/mg 10-[address] [facility] No Panel InformationOrdered By: Tim Harrison on 10-20-2022 Estimated GFR (MDRD) Amer 106 mL/min >[address] [facility] Comment on above: GFR Calc Estimated GFR (MDRD) Non-Af Amer 88 mL/min >[address] [facility] Comment on above: Non- GFR Calc Parathyroid Hormone (Intact) 25.8 pg/mL 18.4-80.[address] [facility] Thyroid Stimulating Hormone (TSH) 1.70 uIU/mL 0.358-3.[address] [facility] Vitamin D 25-Hydroxy 88.9 ng/mL [facility] Comment on above: Vitamin D 25(OH) Sta tus Range Deficiency <20 ng/mL (50nmol/L) Insufficiency 20 - 30 ng/mL (50 - 75 nmol/L) Sufficiency 30 - 100 ng/mL (75 - 250 nmol/L) Toxicity >100 ng/mL (>250 nmol/L) Serum or plasma albumin jose alfredo urement (mass/volume)Ordered By: Tim Harrison on 10-20-2022 Albumin [Mass/Vol] 3.7 g/dL 3.2-5.0 [facility] Serum or plasma albumin/glob ulin mass ratioOrdered By: Tim Harrison on 10-20-2022 Albumin/Globulin [Mass ratio] 1.3 {ratio} 0.9-2.[address] [facility] Serum or plasma calcium jose alfredo urement (mass/volume)Ordered By: Tim Harrison on 10-20-2022 Calcium [Mass/Vol] 8.9 mg/dL 8.5-10.1 [facility] Serum or plasma creatinine m easurement (mass/volume)Ordered By: Tim Harrison on 10-20-2022 Creatinine [Mass/Vol] 0.71 mg/dL 0.55-1.02 [facility] Comment on above: The validity of the calculated GFR & GFRAA in patients over 70 years has not been determined. Clinical correlation is essential. Serum or plasma urea nitroge n measurement (mass/volume)Ordered By: Tim Harrison on 10-20-2022 Urea nitrogen [Mass/Vol] 23 mg/dL 7-[address] [facility] Thin prep Papanicolaou smear with manual screeningOrdered By: Tim Harrison on 10-20-2022 Thin prep Papanicolaou smear with manual screening 24 U/L 15-[address] [facility] Thin prep Papanicolaou smear with manual screening 6 5-[address] [facility] CNOVon 09-15-2022 CNOV Office Visit (NRHAME ) LIGIA HANLEY ([id number]) 1960 F Date Time Provider Department 09/15/22 3:00 PM DEBRA TY During your visit today, we recorded the following information about you: Pulse Respiration Blood pressure Weight 96/minute 16/minute 139/85 68 kg Height 1.727 m Debra Ty APRN.CNP 09/15/2022 2:51 PM Signed AFTER VISIT CARE BOTOX INJECTION While these procedures can be extremely helpful as part of your headache treatment plan, they can irritate the muscles and tissues in your head, neck and shoulders. Proper follow-up care is important to avoid muscle spasms and temporary pain increase within the following 3-5 days after your clinic visit. Here are some tips to help decrease side-effects that may occur and maximize the effectiveness of your pain relief? -HYDRATION Hydration is important to help nourish your muscles and tissues. Drink 60-80 oz of non caffeinated fluid at least for 3 days after your visit. -REST Rest will help avoid further irritation of muscle and tissues. Remember that you need to give your body time to adjust. NO strenuous activity for at least the first 24 hours after your visit. Gentle stretching, yoga, meditation or even swimming is OK and encouraged. -ICE/HEAT Since these procedures irritate muscles, there can be some swelling. Alternating ice and heat every 3-5 times per day may help decrease this, while also optimizing pain relief Use cool gel packs for ice for 10 min. Use a warm moist towel covered with a dry towel on neck and shoulders. Alternate stretching each side of the neck. -STRETCHING Slow, gentle stretching of the neck and shoulders once every hour is helpful to avoid muscle spasms. -TREAT MUSCLE SPASMS If you are already prescribed a muscle relaxer such as baclofen, tizanidine or flexeril, use as directed. If you do not have one, talk to your provider to find out if this would be safe for you to use. Do not rub or massage the area for 48-72 hours. -OTHER No hair dyes or permanents for 24 hours. If you are paying out of pocket for Botox go online to Botox Savings Program and see if you qualify for reimbursement. Return in 3 months for your next Botox Injection Debra Ty APRN.CNP 09/15/2022 3:32 PM Signed Headache Center Follow-up Visit Miscellaneous Patient Concerns: Did not see much benefit with Nurtec and experienced some nausea. Does not want to continue Nurtec at this time. Using Naratriptan PRN with PCP office. Follow-Up Onabotulinum Toxin A (BotoxTM) for Migraine Indication: Chronic Intractable Migraine Referral Expiration: 03/02/2023 Prior to the initiation of the FIRST treatment with Onabotulinum Toxin A, the patient reported the following average headache frequency over the past 3 MONTHS: Number of moderate-severe migraine days/month: 16 Number of mild migraine days/month: 5 Number of headache free days/month: 9 (216 headache-free hours) Migraine severity: 8/10 After treatment with Onabotulinum Toxin A: Number of moderate-severe migraine days/month: 1 Number of mild migraine days/month: 8 Number of headache free days/month: 21 (504 headache-free hours) Migraine severity: 410 Patient reduction in overall migraine days: Yes Patient reduction in moderate-severe migraine days: Yes Patient reduction of headache hours by 100 hours or more: Yes (reduction of 288 hours) The patient has been assessed for disorders which could contribute to breathing or swallowing difficulty, and there is no contraindication with PREEMPT Botox. There is no documented allergic reaction/hypersensitivi ty to any botulinum toxin and there is no active infection at proposed injection site. HEADACHE SCORES: Headache Questions 02/24/2022 06/08/2022 09/12/2022 ER visits since last office visit: 0 0 0 Hospital stays since last office visit 0 0 0 Limited ADLs in the last month: 1 1 1 Days missed from work or school in the last month: 0 0 0 Days headache pain free in the last month: 20 25 21 Days per month with ALL of the following symptoms - decreased productivity, light sensitivity and nausea: 4 1 1 Initial improvement of headache after botox injection at last visit: Much improved Minimally improved Much improved PRN medication usage in the last month: 10 6 9 Patient impression of improvement since last visit: Minimally improved Much improved No change HIT-6 02/24/2022 06/08/2022 09/12/2022 HIT-6 - - - HIT-6 46 (Little or no impact) 48 (Little or no impact) 54 (Moderate impact) LISANDRO - 2/7 SCORES 02/24/2022 06/08/2022 09/12/2022 LISANDRO-2 Score 2 2 1 Migraine Specific QOL - Higher scores indicate better HRQL 02/24/2022 06/08/2022 09/12/2022 Role Function-Restrictive Transformed Score (range: 0-100) 88.57 80 80 Role Function-Preventive Transformed Score (range: 0-100) 100 100 90 Emotion (more content not included)... Normal [facility] CNPNon 07-14-2022 CNPN Telephone (NIQ) LIGIA HANLEY ([id number]) 1960 F Date Time Provider Department 07/14/22 DEBRA TY During your visit today, we recorded the following information about you: Yue Maradiaga 07/14/2022 10:54 AM Addendum NI PHONE Name of caller : Ligia Relationship to patient : Self If not self Will need patient permission to release results or disclose health information with called documented in . Was permission obtained from patient ? Yes Patient identified by Name and Date of . ( Ligia Hanley, 1960). Yes Reason for Call : Symptom Call : What are you symptoms Headache Patient would not state any further information except that she is in the middle of a cycle AND is unable to get her Nurtec medication due to it needing a prior authorization. Would like something in the mean time to use until she is approved for her Nurtec. Pharmacy: [facility] [address] [place] [id number] [facility] [phone] Number to return call [phone] Okay to leave a message ? Yes Last office visit 06/09/22 with Melony Next office visit 09/15/22 with Melony Thank you calling [facility]. You will receive a return call within 48 hours ( or 2 business days if close to the weekend). If you feel that this is an urgent issue and needs immediate attention, it is recommended that you contact your primary care provider office or proceed to your nearest Urgent Care Center of Emergency Room ED for evaluation/treatment. Stella Cochran RN 07/14/2022 1:35 PM Signed Called patient to discuss current Headache. [facility], so she doesn't have a rescue right now. Patient reports: Are you having your typical migraine? If not, what is different? Typical How long have you had this headache? 3 days Pain level of headache? 5/10 Associated Symptoms? Nausea (zofran) Have you tried migraine cycle breakers in the past that has helped (ex. steroids, etc)? -Doesn't want Muscle relaxers d/t narcolepsy -Steroids have worked (as a last resort) -Toradol has worked in the hospital, so could be an option Preferred pharmacy? [facility] [phone] [place] [address] [facility] [phone] I will send your answers to the provider and get back to you with their recommendations. Sandy Ty APRN.DEJUAN 07/14/2022 9:21 PM Signed Please notify patient that I have sent a Naratriptan bridge to break her migraine cycle. The following approved medication requests have been transmitted electronically. Requested Prescriptions Signed Prescriptions Disp Refills naratriptan (AMERGE) 2.5 mg tablet 9 tablet 0 Sig: Take one tablet twice daily for 2 days, then one tablet daily until you are 24 hours headache free or until all 9 pills are gone. Do NOT take any other triptans or pain pills during this time. Authorizing Provider: DEBRA TY APRN.CNP July 14, 2022 9:21 PM Debra Ty APRN.CNP 07/14/2022 9:21 PM Signed Addended by: DEBRA TY on: 07/14/2022 09:21 PM Modules accepted: Orders Stella Cochran RN 07/15/2022 8:31 AM Signed Called patient and relayed provider's message. All questions answered. Patient verbalized understanding. Sandy Komertz RN Allergies As of Date: 07/14/2022 Noted Allergy Reaction FLAGYL (METRONIDAZOLE HCL) 12/16/2015 2 - Rash KEFLEX (CEPHALEXIN) 06/03/2021 14 - Other: See Comments Comments: Patient states she had Muscle spasms in back AND legs for days NSAIDS (NON-STEROIDAL ANTI-INFLAM*05/06/2009 8 - GI Upset SEASONAL ALLERGIES 09/26/2013 3 - Cough Date Reviewed: 06/09/2022 Reviewed by: Debra Ty APRN.DIRECTOR PROJECT MANAGEMENT - Fully Assessed Reason for Visit: Symptoms [3640] Cmt: Headache Order(s):naratriptan (AMERGE) 2.5 mg tabletTake one tablet twice daily for 2 days, then one tablet daily until you are 24 hours headache free or until all 9 pills are gone. Do NOT take any other triptans or pain pills during this time.Disp: 9 tabletRfl: 0 Prescriptions as of 07/15/2022 - ondansetron (ZOFRAN) 8 mg tablet Take 1 tablet by mouth once daily as needed for nausea/vomiting. - rOPINIRole (REQUIP) 0.5 mg tablet 1 - 2 tabs qhs for RLS - naratriptan (AMERGE) 2.5 mg tablet Take one tablet twice daily for 2 days, then one tablet daily until you are 24 hours headache free or until all 9 pills are gone. Do NOT take any other triptans or pain pills during this time. - rimegepant (NURTEC ODT) 75 mg disintegrating tablet TAKE 1 TABLET AT ONSET OF HEADACHE/MIGRAINE. ONLY TAKE 1 TABLET SINGLE DOSE IN 24 HOUR PERIOD. - dextroamphetamine-amphe tamine (ADDERALL) 10 mg tablet TAKE 1 TABLET BY MOUTH THREE TIMES A DAY NEEDED FOR FATIGUE OR NARCOLEPSY - cholecalciferol, vitamin D3, (VITAMIN D3 ORAL) Take 1 capsule by mouth (more content not included)... [facility] ([id number]) 1960 F Date Time Provider Department 07/14/22 DEBRA TY During your visit today, we recorded the following information about you: Yue Maradiaga 07/14/2022 10:51 AM Signed Prior Authorization for Medications Requested by (MyChart, Pharmacy, Patient Call, Fax) : Patient Call Pharmacy Name: [facility] Phone # : [phone] Name of Medication : Nurtec Dose : 75mg If renewal, auth date expiration: NA Prescribing Provider: Melony Last OV: 06/09/22 with Melony Insurance Provider : [employer]/ [employer] [facility] Is insurance card scanned in, including Rx info? Yes Rx ID number: [id number] Rx BIN: [id number] Rx PCN: [id number] Rx Grp: [id number] Insurance CoverMyMeds Garcia: NA E-PA? No Lissy Villalobos 07/29/2022 10:38 AM Signed The PA for the Nurtec is a renewal. Patient last visit was 06/09/22 and no documentation was made on usage of medication. Can the renewal documentation be incorporated in visit or does patient need a follow up visit for updated information? Lissy Ty APRN.CNP 07/29/2022 11:18 AM Signed Can review at upcoming appointment in August or patient can schedule follow-up visit to discuss. KRISTIN Garcia 07/30/2022 9:03 AM Signed Left voicemail for Patient to schedule follow up if needed. Celine Allergies As of Date: 07/14/2022 Noted Allergy Reaction FLAGYL (METRONIDAZOLE HCL) 12/16/2015 2 - Rash KEFLEX (CEPHALEXIN) 06/03/2021 14 - Other: See Comments Comments: Patient states she had Muscle spasms in back AND legs for days NSAIDS (NON-STEROIDAL ANTI-INFLAM*05/06/2009 8 - GI Upset SEASONAL ALLERGIES 09/26/2013 3 - Cough Date Reviewed: 06/09/2022 Reviewed by: Debra Ty APRN.DIRECTOR PROJECT MANAGEMENT - Fully Assessed Reason for Visit: Insurance Authorization [[id number]] [facility]: [facility] Prescriptions as of 07/30/2022 - ondansetron (ZOFRAN) 8 mg tablet Take 1 tablet by mouth once daily as needed for nausea/vomiting. - rOPINIRole (REQUIP) 0.5 mg tablet 1 - 2 tabs qhs for RLS - naratriptan (AMERGE) 2.5 mg tablet Take one tablet twice daily for 2 days, then one tablet daily until you are 24 hours headache free or until all 9 pills are gone. Do NOT take any other triptans or pain pills during this time. - rimegepant ([facility] ODT) 75 mg disintegrating tablet TAKE 1 TABLET AT ONSET OF HEADACHE/MIGRAINE. ONLY TAKE 1 TABLET SINGLE DOSE IN 24 HOUR PERIOD. - dextroamphetamine-amphe tamine (ADDERALL) 10 mg tablet TAKE 1 TABLET BY MOUTH THREE TIMES A DAY NEEDED FOR FATIGUE OR NARCOLEPSY - cholecalciferol, vitamin D3, (VITAMIN D3 ORAL) Take 1 capsule by mouth once daily. - trazodone HCl (TRAZODONE ORAL) Take 50 tablets by mouth. 1-3 tablets - hydroCHLOROthiazide (HYDRODIURIL, ESIDRIX) 25 mg tablet - traMADol (ULTRAM) 50 mg tablet as needed. - magnesium citrate 100 mg tab Take by mouth once daily. - calcium, elemental, tab Take by mouth twice daily. TWO TABLETS DAILY - Ascorbic Acid 1,000 mg tablet Take 1,000 mg by mouth once daily. - levothyroxine (SYNTHROID) 50 mcg tablet Take 1 tablet by mouth once daily. - multivitamin tablet Take 1 tablet by mouth once daily. 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] 05/13/2006 01/06/2011 Narcolepsy [G47.419] 01/06/2011 Enlarged lymph node [R59.9] 10/11/2013 Intractable chronic migraine without aura [G43.*12/01/2013 Intractable chronic migraine without aura and w*07/03/2016 Encounter Status:Closed by LISSY VILLALOBOS on 07/29/22 [facility] CNOVon 06-09-2022 CNOV Office Visit (NRHAME ) LIGIA HANLEY ([id number]) 1960 F Date Time Provider Department 06/09/22 2:30 PM DEBRA TY During your visit today, we recorded the following information about you: Pulse Blood pressure Weight Height 99/minute 138/85 71.3 kg 1.727 m Debra Ty APRN.DIRECTOR PROJECT MANAGEMENT 06/09/2022 2:52 PM Signed Follow-Up Onabotulinum Toxin A (BotoxTM) for Migraine Indication: Chronic Intractable Migraine Treatment #: [id number] Referral Expiration: 03/02/2023 Prior to the initiation of the FIRST treatment with Onabotulinum Toxin A, the patient reported the following average headache frequency over the past 3 MONTHS: Number of moderate-severe migraine days/month: 16 Number of mild migraine days/month: 5 Number of headache free days/month: 9 (216 headache-free hours) Migraine severity: 12/31 After treatment with Onabotulinum Toxin A: Number of moderate-severe migraine days/month: 1 Number of mild migraine days/month: 4 Number of headache free days/month: 25 (600 headache-free hours) Migraine severity: 08/31 Patient reduction in overall migraine days: Yes Patient reduction in moderate-severe migraine days: Yes Patient reduction of headache hours by 100 hours or more: Yes (reduction of 384 hours) Individual has obtained clinical benefit deemed significant by individual or prescriber (Y/N): Yes Patient's quality of life and ability to perform ADLs has improved (Y/N): Yes Side effects: none Wearing off: Yes - 8 weeks after treatment The patient has been assessed for disorders which could contribute to breathing or swallowing difficulty, and there is no contraindication with PREEMPT Botox. There is no documented allergic reaction/hypersensitivi ty to any botulinum toxin and there is no active infection at proposed injection site. HEADACHE SCORES: Headache Questions 11/26/2021 02/24/2022 06/08/2022 ER visits since last office visit: 0 0 0 Hospital stays since last office visit 0 0 0 Limited ADLs in the last month: 8 1 1 Days missed from work or school in the last month: 1 0 0 Days headache pain free in the last month: 15 20 25 Days per month with ALL of the following symptoms - decreased productivity, light sensitivity and nausea: 8 4 1 Initial improvement of headache after botox injection at last visit: Minimally improved Much improved Minimally improved PRN medication usage in the last month: 12 10 6 Patient impression of improvement since last visit: Much worse Minimally improved Much improved HIT-6 11/26/2021 02/24/2022 06/08/2022 HIT-6 - - - HIT-6 60 (Severe impact) 46 (Little or no impact) 48 (Little or no impact) LISANDRO - 2/7 SCORES 11/26/2021 02/24/2022 06/08/2022 LISANDRO-2 Score 1 2 2 Migraine Specific QOL - Higher scores indicate better HRQL 11/26/2021 02/24/2022 06/08/2022 Role Function-Restrictive Transformed Score (range: 0-100) 60 88.57 80 Role Function-Preventive Transformed Score (range: 0-100) 75 100 100 Emotional Function Transformed Score (range: 0-100) 80 100 100 PHQ-9 11/26/2021 02/24/2022 06/08/2022 Score 4 7 8 BP 138/85 (BP Site: Left Arm, BP Position: Sitting, BP Cuff Size: Regular Adult) Pulse 99 Ht 172.7 cm (5' 8") Wt 71.3 kg (157 lb 3.2 oz) SpO2 100% BMI 23.90 kg/m? Patient name: Ligia Hanley : 1960 ALLERGIES Allergen Reactions Flagyl [Metronidazo* Rash Keflex [Cephalexin] Other: See Comments Patient states she had Muscle spasms in back AND legs for days Nsaids (Non-Steroid* GI Upset Seasonal Allergies Cough UNIVERSAL PROTOCOL / SAFETY CHECKLIST Procedure: Onabotulinum toxin A for migraine Informed Consent Consent Obtained: Written Blackburn Protocol A moment to CARE was completed SIGN IN Personnel directly involved with the procedure wore the appropriate PPE Special Equipment: N/A Patient/Surrogate Stated/Verified: Patient name, Date of , Relevant allergies and Intended procedure TIME OUT Intended patient and procedure match the source document(s) Consent documented and matches the intended procedure No relevant labs, photos, and/or imaging studies were applicable for review. No correct side/site applicable for marking and visibility. No medications required for procedure. No fire risk assessment and interventions applicable. No implant(s) inserted. SIGN OUT No specimen collected. No instruments, equipment or retained foreign bodies applicable. Post-procedure follow-up management communicated and Plan of Care Visit completed when applicable Written Consent Obtained: Written LOT #: [id number] Expiration Date: Month: 3 Year: 2024 Second vial: LOT #: [id number] Expiration Date: Month: 3 Year: 2024 Injection Sites Left (Units) Left (Sites) Right (Units) Right (Sites) TOTAL (Units) Commercial Crabber 5 1 5 1 10 Procerus Units: 5 Sites: 1 5 Frontalis 10 2 10 2 20 Temporalis optional follow the pa (more content not included)... Normal [facility] 03-09-2022 [facility] Telephone (NHMNS2) LIGIA HANLEY ([id number]) 1960 F Date Time Provider Department 03/09/22 DEBRA TY [facility] During your visit today, we recorded the following information about you: Carlota Burnette Adm 03/09/2022 2:55 PM Signed Prior Authorization Requested Received notification via phone from insurance Prior authorization for ondansetron (ZOFRAN) 8 mg tablet from [employer] insurance company. Insurance said that they have faxed a form to us, this needs to be on their specific form, however, we have not received this. Request forwarded to [employer] inbox for review and completion. Sunshine Winters [facility] 03/12/2022 8:19 AM Signed Rec'd a fax from [employer]. E-mailed form to patient to sign, but it seems this has been denied and insurance is asking us to appeal. Once patient e-mails form back, I will send to Nurses. Stella Cochran RN 03/12/2022 12:57 PM Signed Form filled out and sent back to [place] with chart notes to send to insurance company. Sandy Cochran RN Sunshine Winters [facility] 03/12/2022 1:22 PM Signed Information faxed back to [employer] [facility] at [phone]. Also scanned completed forms to patient's chart via [employer]. Sunshine Winters [facility] 03/12/2022 1:46 PM Signed Rec'd a transmission error when using the fax number below from form, so faxing to [phone] as a backup. Sunshine Winters [facility] 03/12/2022 4:02 PM Signed Rec'd approval via fax. Effective until medical condition changes or 03/06/2023, whichever is earlier per [employer]. Auth #: Approval scanned to chart via [employer] Allergies As of Date: 03/09/2022 Noted Allergy Reaction FLAGYL (METRONIDAZOLE HCL) 12/16/2015 2 - Rash KEFLEX (CEPHALEXIN) 06/03/2021 14 - Other: See Comments Comments: Patient states she had Muscle spasms in back AND legs for days NSAIDS (NON-STEROIDAL ANTI-INFLAM*05/06/2009 8 - GI Upset SEASONAL ALLERGIES 09/26/2013 3 - Cough Date Reviewed: 03/03/2022 Reviewed by: Debra Ty APRN.DIRECTOR PROJECT MANAGEMENT - Fully Assessed Reason for Visit: Insurance Authorization [[id number]] Cmt: ondansetron (ZOFRAN) 8 mg tablet Prescriptions as of 03/12/2022 - ondansetron (ZOFRAN) 8 mg tablet Take 1 tablet by mouth once daily as needed for nausea/vomiting. - dextroamphetamine-amphe tamine (ADDERALL) 10 mg tablet TAKE 1 TABLET BY MOUTH THREE TIMES A DAY NEEDED FOR FATIGUE OR NARCOLEPSY - rimegepant (NURTEC ODT) 75 mg disintegrating tablet Take 1 tablet at onset of headache/migraine. Only take 1 tablet as single dose in 24 hour period. - cholecalciferol, vitamin D3, (VITAMIN D3 ORAL) Take 1 capsule by mouth once daily. - trazodone HCl (TRAZODONE ORAL) Take 50 tablets by mouth. 1-3 tablets - naratriptan (AMERGE) 2.5 mg tablet 1 po at migraine onset. Mar rptX1 prn after 4h for recurrence Max 10d/month - rOPINIRole (REQUIP) 0.5 mg tablet 1 - 2 tabs qhs for RLS - hydroCHLOROthiazide (HYDRODIURIL, ESIDRIX) 25 mg tablet - traMADol (ULTRAM) 50 mg tablet as needed. - magnesium citrate 100 mg tab Take by mouth once daily. - calcium, elemental, tab Take by mouth twice daily. TWO TABLETS DAILY - Ascorbic Acid 1,000 mg tablet Take 1,000 mg by mouth once daily. - levothyroxine (SYNTHROID) 50 mcg tablet Take 1 tablet by mouth once daily. - multivitamin tablet Take 1 tablet by mouth once daily. 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] 05/13/2006 01/06/2011 Narcolepsy [G47.419] 01/06/2011 Enlarged lymph node [R59.9] 10/11/2013 Intractable chronic migraine without aura [G43.*12/01/2013 Intractable chronic migraine without aura and w*07/03/2016 Encounter Status:Closed by STELLA COCHRAN on 03/12/22 [facility] TEREon 03-03-2022 CNOV Office Visit (NRHAME ) LIGIA HANLEY ([id number]) 1960 F Date Time Provider Department 03/03/22 2:30 PM DEBRA TY During your visit today, we recorded the following information about you: Pulse Blood pressure Weight Height 96/minute 129/68 68.4 kg 1.715 m Debra Ty APRN.CNP 03/03/2022 3:02 PM Signed Follow-Up Onabotulinum Toxin A (BotoxTM) for Migraine Indication: Chronic Intractable Migraine Treatment #: 17 Referral Expiration: 03/02/2023 Prior to the initiation of the FIRST treatment with Onabotulinum Toxin A, the patient reported the following average headache frequency over the past 3 MONTHS: Number of moderate-severe migraine days/month: 16 Number of mild migraine days/month: 5 Number of headache free days/month: 9 (216 headache-free hours) Migraine severity: 8/10 After treatment with Onabotulinum Toxin A: Number of moderate-severe migraine days/month: 4 Number of mild migraine days/month: 6 Number of headache free days/month: 20 (480 headache-free hours) Migraine severity: 4/10 Patient reduction in overall migraine days: Yes Patient reduction in moderate-severe migraine days: Yes Patient reduction of headache hours by 100 hours or more: Yes (reduction of 264 hours) Individual has obtained clinical benefit deemed significant by individual or prescriber (Y/N): Yes Patient's quality of life and ability to perform ADLs has improved (Y/N): Yes Side effects: none Wearing off: Yes - 8 weeks after treatment HEADACHE SCORES: Headache Questions 09/01/2021 11/26/2021 02/24/2022 ER visits since last office visit: 0 0 0 Hospital stays since last office visit 0 0 0 Limited ADLs in the last month: 1 8 1 Days missed from work or school in the last month: 0 1 0 Days headache pain free in the last month: 25 15 20 Days per month with ALL of the following symptoms - decreased productivity, light sensitivity and nausea: 3 8 4 Initial improvement of headache after botox injection at last visit: Much improved Minimally improved Much improved PRN medication usage in the last month: 6 12 10 Patient impression of improvement since last visit: No change Much worse Minimally improved HIT-6 09/01/2021 11/26/2021 02/24/2022 HIT-6 - - - HIT-6 46 (Little or no impact) 60 (Severe impact) 46 (Little or no impact) LISANDRO - 2/7 SCORES 09/01/2021 11/26/2021 02/24/2022 LISANDRO-2 Score 1 1 2 Migraine Specific QOL - Higher scores indicate better HRQL 02/11/2020 11/26/2021 02/24/2022 Role Function-Restrictive Transformed Score (range: 0-100) 97.14 60 88.57 Role Function-Preventive Transformed Score (range: 0-100) 100 75 100 Emotional Function Transformed Score (range: 0-100) 100 80 100 PHQ-9 09/01/2021 11/26/2021 02/24/2022 Score 4 4 7 BP 129/68 Pulse 96 Ht 171.5 cm (5' 7.5") Wt 68.4 kg (150 lb 11.2 oz) SpO2 99% BMI 23.25 kg/m? Patient name: Ligia Hanley : 1960 ALLERGIES Allergen Reactions Flagyl [Metronidazo* Rash Keflex [Cephalexin] Other: See Comments Patient states she had Muscle spasms in back AND legs for days Nsaids (Non-Steroid* GI Upset Seasonal Allergies Cough UNIVERSAL PROTOCOL / SAFETY CHECKLIST Procedure: Onabotulinum toxin A for migraine Informed Consent Consent Obtained: Written Blackburn Protocol A moment to CARE was completed SIGN IN Personnel directly involved with the procedure wore the appropriate PPE Special Equipment: N/A Patient/Surrogate Stated/Verified: Patient name, Date of , Relevant allergies and Intended procedure TIME OUT Intended patient and procedure match the source document(s) Consent documented and matches the intended procedure No relevant labs, photos, and/or imaging studies were applicable for review. No correct side/site applicable for marking and visibility. No medications required for procedure. No fire risk assessment and interventions applicable. No implant(s) inserted. SIGN OUT No specimen collected. No instruments, equipment or retained foreign bodies applicable. Post-procedure follow-up management communicated and Plan of Care Visit completed when applicable Written Consent Obtained: Written LOT #: [id number] Expiration Date: Month: : 2023 Second vial: LOT #: [id number] Expiration Date: Month: Year: 2023 Injection Sites Left (Units) Left (Sites) Right (Units) Right (Sites) TOTAL (Units) Commercial Crabber 5 1 5 1 10 Procerus Units: 5 Sites: 1 5 Frontalis 10 2 10 2 20 Temporalis optional follow the pain 20 10 4 2 20 4 50 Occipitalis optional follow the pain 15 30 3 6 15 5 3 1 65 Cervical PSP 10 2 10 2 20 Trapezius 15 3 15 3 30 Total Units used: 200 Total Units wasted: 0 Patient tolerated procedure well. Prior Therapies Duration of Use Dose Side effect Analgesic Tramadol (Ultram) Anti-Convulsant Divalproex sodium (Depakote) Anti-Depressa (more content not included)... Normal [facility] Therapy Communicationon 08-0 Therapy Communication Message LIGIA HANLEY was (D/C)- last seen: 10/13/2021. Non-visit DC completed due to pt has not been seen in PT since 10/13/2021 and her PT POC has . Signatures Electronically signed by : Noe Rosado, PT; Dec 22 2021 5:19PM EST (Author) Normal [employer] [facility] 12-09-2021 CNPN Telephone (NHMNS2) LIGIA HANLEY ([id number]) 1960 F Date Time Provider Department 12/09/21 DEBRA TY NHMNS2 During your visit today, we recorded the following information about you: Sunshine Winters Pss 12/09/2021 11:43 AM Signed Prior Authorization Requested ? ? Received notification via telephone from [facility] Prior authorization for Nurtec ODT from [employer] insurance [employer]. ? Request forwarded to [address] inbox for review and completion. ? ? No benefits plan listed. Viktoriya Bird RN 12/10/2021 12:04 PM Signed Called Rosalinda as noted in previous encounter 07/21/21.(see below) No EPA available. Spoke with PA repAilyn, information taken for [facility] PA. Stated form to be faxed to [phone] to be filled out and sent back to insurance. CMM submitted/ unable to send to plan---- Ligia Hanley (Garcia: [id number]) [facility] Form: [employer] Electronic PA Form (2017 [facility]) Determination: Message from Plan Cannot find matching patient ----- July 21, 2021 ? 3:00 PM Sammi Portillo LPN 2:59 PM Note Called number provided, transferred by Jorge Alberto gray Crocker. PA completed over the phone. Can take 3-15 days to complete. Determination will be faxed once the decision is made. ? Sammi Portillo LPN ? Sammi Montiel ? 11:43 AM Note Received call from Rx Benefits stating PA needed on Naratriptan. ? EPA not available ? Rosalinda ID # [id number] [phone] Lissy Villalobos 12/16/2021 9:10 AM Signed Confused: is a PA needed for Nurtec or Naratriptan or both ? Thanks, Lissy Villalobos Carlota Burnette Adm 12/16/2021 3:32 PM Signed PA needed for [facility]. Naratriptan does not need a PA. I'm not sure why that message was copied and pasted into the [facility] PA request Lissy Villalobos 12/17/2021 1:52 PM Signed Called Rosalinda to check status of PA form for [facility], stated : Forms were faxed out on 12/11, ,, to fax # [phone]. Spoke with Charley she said they would fax them again to fax # [phone] Lissy Winters Pss 12/18/2021 10:25 AM Signed Rec'd [facility] PA form via fax. Lissy will complete. Lissy Villalobos 12/18/2021 11:09 AM Signed Prior Authorization started for [facility]. Form scanned in email and forwarded to admin for provider review and signature. Lissy Maradiaga 12/18/2021 3:08 PM Signed Sent to provider via [employer] to review and sign. Sammi Montiel 12/30/2021 9:34 AM Signed Received approval via fax from Rosalinda for [facility]. Effective until 12/23/2022. Uploaded to chart via [employer]. Allergies As of Date: 12/09/2021 Noted Allergy Reaction FLAGYL (METRONIDAZOLE HCL) 12/16/2015 2 - Rash KEFLEX (CEPHALEXIN) 06/03/2021 14 - Other: See Comments Comments: Patient states she had Muscle spasms in back AND legs for days NSAIDS (NON-STEROIDAL ANTI-INFLAM*05/06/2009 8 - GI Upset SEASONAL ALLERGIES 09/26/2013 3 - Cough Date Reviewed: 12/02/2021 Reviewed by: Debra Ty APRN.DIRECTOR PROJECT MANAGEMENT - Fully Assessed Reason for Visit: Insurance Authorization [1963] Cmt: [facility] Prescriptions as of 12/30/2021 - ondansetron (ZOFRAN) 8 mg tablet Take 1 tablet by mouth once daily as needed for nausea/vomiting. - dextroamphetamine-amphe tamine (ADDERALL) 10 mg tablet TAKE 1 TABLET BY MOUTH THREE TIMES A DAY NEEDED FOR FATIGUE OR NARCOLEPSY - rimegepant (NURTEC ODT) 75 mg disintegrating tablet Take 1 tablet at onset of headache/migraine. Only take 1 tablet as single dose in 24 hour period. - cholecalciferol, vitamin D3, (VITAMIN D3 ORAL) Take 1 capsule by mouth once daily. - trazodone HCl (TRAZODONE ORAL) Take 50 tablets by mouth. 1-3 tablets - naratriptan (AMERGE) 2.5 mg tablet 1 po at migraine onset. Mar rptX1 prn after 4h for recurrence Max 10d/month - rOPINIRole (REQUIP) 0.5 mg tablet 1 - 2 tabs qhs for RLS - hydroCHLOROthiazide (HYDRODIURIL, ESIDRIX) 25 mg tablet - traMADol (ULTRAM) 50 mg tablet as needed. - magnesium citrate 100 mg tab Take by mouth once daily. - calcium, elemental, tab Take by mouth twice daily. TWO TABLETS DAILY - Ascorbic Acid (VITAMIN C) 1,000 mg tablet Take 1,000 mg by mouth once daily. - levothyroxine (SYNTHROID) 50 mcg tablet Take 1 tablet by mouth once daily. - multivitamin tablet Take 1 tablet by mouth once daily. 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 Normal [facility] CNOVon 12-02-2021 CNOV Office Visit (NRHAME ) LIGIA HANLEY ([id number]) 1960 F Date Time Provider Department 12/02/21 11:00 AM DEBRA TY During your visit today, we recorded the following information about you: Pulse Blood pressure Weight Height 85/minute 124/73 69.2 kg 1.702 m Debra Ty APRN.CNP 12/02/2021 10:42 AM Signed AFTER VISIT CARE BOTOX INJECTION While these procedures can be extremely helpful as part of your headache treatment plan, they can irritate the muscles and tissues in your head, neck and shoulders. Proper follow-up care is important to avoid muscle spasms and temporary pain increase within the following 3-5 days after your clinic visit. Here are some tips to help decrease side-effects that may occur and maximize the effectiveness of your pain relief? -HYDRATION Hydration is important to help nourish your muscles and tissues. Drink 60-80 oz of non caffeinated fluid at least for 3 days after your visit. -REST Rest will help avoid further irritation of muscle and tissues. Remember that you need to give your body time to adjust. NO strenuous activity for at least the first 24 hours after your visit. Gentle stretching, yoga, meditation or even swimming is OK and encouraged. -ICE/HEAT Since these procedures irritate muscles, there can be some swelling. Alternating ice and heat every 3-5 times per day may help decrease this, while also optimizing pain relief 1. Use cool gel packs for ice for 10 min. 2. Use a warm moist towel covered with a dry towel on neck and shoulders. 3. Alternate stretching each side of the neck. -STRETCHING Slow, gentle stretching of the neck and shoulders once every hour is helpful to avoid muscle spasms. -TREAT MUSCLE SPASMS If you are already prescribed a muscle relaxer such as baclofen, tizanidine or flexeril, use as directed. If you do not have one, talk to your provider to find out if this would be safe for you to use. Do not rub or massage the area for 48-72 hours. -OTHER No hair dyes or permanents for 24 hours. If you are paying out of pocket for Botox go online to Botox Savings Program and see if you qualify for reimbursement. Return in 3 months for your next Botox Injection Debra Ty APRN.DIRECTOR PROJECT MANAGEMENT 12/02/2021 11:15 AM Signed Follow-Up Onabotulinum Toxin A (BotoxTM) for Migraine Indication: Chronic Intractable Migraine Treatment #: 16 Referral Expiration: 02/18/2022 Prior to the initiation of the FIRST treatment with Onabotulinum Toxin A, the patient reported the following average headache frequency over the past 3 MONTHS: Number of moderate-severe migraine days/month: 16 Number of mild migraine days/month: 5 Number of headache free days/month: 9 (216 headache-free hours) Migraine severity: 8/10 After treatment with Onabotulinum Toxin A: Number of moderate-severe migraine days/month: 8 Number of mild migraine days/month: 7 Number of headache free days/month: 15 (360 headache-free hours) Migraine severity: 4/10 Patient reduction in overall migraine days: Yes Patient reduction in moderate-severe migraine days: Yes Patient reduction of headache hours by 100 hours or more: Yes (reduction of 144 hours) Individual has obtained clinical benefit deemed significant by individual or prescriber (Y/N): Yes Patient's quality of life and ability to perform ADLs has improved (Y/N): Yes Side effects: none Wearing off: Yes - 8 weeks after treatment Naratriptan does help but she often has to take 2 doses. She may have return on the migraine the next day. We will trial Nurtec for rescue. We will get a precert for an Oral Calcitonin Gene-Related Peptide Receptor Antagonist (GEPANT) Rimegepant for the rescue treatment of chronic migraine . This patient meets AHS criteria for treatment of migraine with an oral small molecule CGRP antagonist GEPANT. The FDA has approved GEPANTS for the treatment of migraine. Specifically, the patient has 15 headaches per month, lasting 4 or more hours/day associated with photophobia, phonophobia, nausea, vomiting for three or more months. Medication overuse headache has been ruled out.Patient will not use with another GEPANT. The patient has tried and failed the following : Anti-Migraine Dihydroergotamine (DHE-45, Migranal) Methylergonovine (Methergine) Naratriptan (Amerge) Sumatriptan (Imitrex, Sumavel) Zolmitriptan (Zomig) HEADACHE SCORES: Headache Questions 05/29/2021 09/01/2021 11/26/2021 ER visits since last office visit: 0 0 0 Hospital stays since last office visit 0 0 0 Limited ADLs in the last month: 0 1 8 Days missed from work or school in the last month: 0 0 1 Days headache pain free in the last month: 26 25 15 Days per month with ALL of the following symptoms - decreased productivity, light sensitivity and nausea: 0 3 8 Initial improvement of headache after zulema (more content not included)... Normal [facility] CNPNon 12-02-2021 CNPN Telephone (NHMNS2) LIGIA HANLEY ([id number]) 1960 F Date Time Provider Department 12/02/21 DEBRA TY [facility] During your visit today, we recorded the following information about you: Shanda Han RN 12/02/2021 11:18 AM Signed Botox referral sent to pharmacy. Shanda Han RN Allergies As of Date: 12/02/2021 Noted Allergy Reaction FLAGYL (METRONIDAZOLE HCL) 12/16/2015 2 - Rash KEFLEX (CEPHALEXIN) 06/03/2021 14 - Other: See Comments Comments: Patient states she had Muscle spasms in back AND legs for days NSAIDS (NON-STEROIDAL ANTI-INFLAM*05/06/2009 8 - GI Upset SEASONAL ALLERGIES 09/26/2013 3 - Cough Date Reviewed: 12/02/2021 Reviewed by: Debra Ty APRN.[facility] - Fully Assessed Reason for Visit: Referral Request [124] Prescriptions as of 12/02/2021 - dextroamphetamine-amphe tamine (ADDERALL) 10 mg tablet TAKE 1 TABLET BY MOUTH THREE TIMES A DAY NEEDED FOR FATIGUE OR NARCOLEPSY - rimegepant (NURTEC ODT) 75 mg disintegrating tablet Take 1 tablet at onset of headache/migraine. Only take 1 tablet as single dose in 24 hour period. - cholecalciferol, vitamin D3, (VITAMIN D3 ORAL) Take 1 capsule by mouth once daily. - trazodone HCl (TRAZODONE ORAL) Take 50 tablets by mouth. 1-3 tablets - naratriptan (AMERGE) 2.5 mg tablet 1 po at migraine onset. Mar rptX1 prn after 4h for recurrence Max 10d/month - rOPINIRole (REQUIP) 0.5 mg tablet 1 - 2 tabs qhs for RLS - ondansetron (ZOFRAN) 8 mg tablet Take 1 tablet by mouth once daily as needed. FOR NAUSEA - hydroCHLOROthiazide (HYDRODIURIL, ESIDRIX) 25 mg tablet - traMADol (ULTRAM) 50 mg tablet as needed. - magnesium citrate 100 mg tab Take by mouth once daily. - calcium, elemental, tab Take by mouth twice daily. TWO TABLETS DAILY - Ascorbic Acid (VITAMIN C) 1,000 mg tablet Take 1,000 mg by mouth once daily. - levothyroxine (SYNTHROID) 50 mcg tablet Take 1 tablet by mouth once daily. - multivitamin tablet Take 1 tablet by mouth once daily. 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 Chloride [Moles/Vol] 107 mmol/L 98-107 [facility] Work Phone: Glucose [Mass/Vol] 89 mg/dL 74-106 [facility] Work Phone: Potassium [Moles/Vol] 3.9 mmol/L 3.5-5.1 [facility] Work Phone: Protein [Mass/Vol] 7.3 g/dL 6.4-8.2 [facility] Work Phone: Sodium [Moles/Vol] 140 mmol/L 136-145 [facility] Work Phone: Laboratory - Chemistry and C hemistry - challengeon 10-28-2021 ALP [Catalytic activity/Vol] 102 U/L 45-[address] [facility] Work Phone: ALT [Catalytic activity/Vol] 41 U/L 13-[address] [facility] Work Phone: CO2 [Moles/Vol] 28.0 mmol/L 21.0-32.[address] [facility] Work Phone: Globulin (S) [Mass/Vol] 3.1 g/dL 2.2-4.[address] [facility] Work Phone: Urea nitrogen/Creatinine [Mass ratio] 23.7 mg/mg 10-[address] [facility] Work Phone: No Panel Informationon 10-28 Estimated GFR (MDRD) Amer 106 mL/min >[address] [facility] Work Phone: Comment on above: GFR Calc Estimated GFR (MDRD) Non-Af Amer 87 mL/min >[address] [facility] Work Phone: Comment on above: Non- GFR Calc Parathyroid Hormone (Intact) 44.2 pg/mL 18.4-80.[address] [facility] Work Phone: Thyroid Stimulating Hormone (TSH) 1.04 uIU/mL 0.358-3.[address] [facility] Work Phone: Vitamin D 25-Hydroxy 65.6 ng/mL [facility] Work Phone: Comment on above: Vitamin D 25(OH) Sta tus Range Deficiency <20 ng/mL (50nmol/L) Insufficiency 20 - 30 ng/mL (50 - 75 nmol/L) Sufficiency 30 - 100 ng/mL (75 - 250 nmol/L) Toxicity >100 ng/mL (>250 nmol/L) Serum or plasma albumin jose alfredo urement (mass/volume)on 10-28-2021 Albumin [Mass/Vol] 4.2 g/dL 3.2-5.0 [facility] Work Phone: Serum or plasma albumin/glob ulin mass ratioon 10-28-2021 Albumin/Globulin [Mass ratio] 1.4 {ratio} 0.9-2.[address] [facility] Work Phone: Serum or plasma calcium jose alfredo urement (mass/volume)on 10-28-2021 Calcium [Mass/Vol] 9.4 mg/dL 8.5-10.1 [facility] Work Phone: Serum or plasma creatinine m easurement (mass/volume)on 10-28-2021 Creatinine [Mass/Vol] 0.72 mg/dL 0.55-1.02 [facility] Work Phone: Comment on above: The validity of the calculated GFR & GFRAA in patients over 70 years has not been determined. Clinical correlation is essential. Serum or plasma urea nitroge n measurement (mass/volume)on 10-28-2021 Urea nitrogen [Mass/Vol] 17 mg/dL 7-[address] [facility] Work Phone: Thin prep Papanicolaou smear with manual screeningon 10-28-2021 Thin prep Papanicolaou smear with manual screening 34 U/L 15-[address] [facility] Work Phone: Thin prep Papanicolaou smear with manual screening 5 5-[address] 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 LTG's: 1) Improve L ankle and 2nd toe strength from 4-/5 L 2nd toe flex/ext and 4+/5 L ankle DF/inv/ev to >= 4+/5 throughout in order to facilitate safe gait and mobility. 4-6 weeks 2) Improve L ankle PROM/AROM from 15 deg L 2nd toe ext, 13 deg L 2nd toe flex and 9 deg L DF to >= 20 deg L 2nd toe flex/ext and 12 deg L DF in order to facilitate safe gait and stair negotiation. 4-6 weeks 3) Improve L foot/ankle/toe pain from 5/10 to <= 2/10 with activity in order to improve QOL. 4-6 weeks 4) Improve LEFS score by >= 5 points in order to improve QOL. 4-6 weeks 5) Pt will be able to walk and/or go hiking >= 3-4 miles without significant L foot/toe pain/limitation. 4-[address]) Pt/caregiver will be I and consistent with HEP with handout as needed in order to maximize ankle strength and ROM/flexibility. 2-3 weeks Planned interventions include: education/instruction, gait training, home program, manual therapy, neuromuscular re-education, therapeutic activities and therapeutic exercises. Frequency and duration: 2 time(s) a week, for 4 weeks, for 8 visits. Potential to achieve rehab goals is good Continue to progress with L great toe/foot ROM/flexibility and strengthening as able in order to improve quality of gait. Progress with POC, as tolerated. Assessment Patient identified by name and date of . Added SLS this date with shoe off this date she demonstrated moderate sway and intermittent finger touch down. She demonstrated good tolerance to treatment with no increased Sx after. Adult Risk Screening Initial Fall Risk Screening: LIGIA has fallen in the last 6 months. She has fallen due to dog tripped pt on road walking. Her fall resulted in the following injury: bruised/injured her knees and was sore for a couple weeks. LIGIA does not have a fear of falling. She does not need assistance with sitting, standing or walking. Does not need assistance walking in her home. She does not need assistance in an unfamiliar setting. The patient is not using an assistive device. Pain Scale: On a scale of 0 to 10, the patient rates the pain at 0. Please identify location of pain: underside of 2nd toe 3-4 with ambulation. Pain Quality: aching, tightness and numbness. The pain makes it hard for the patient to do these things: walking. Depression/Suicide Screening: During the past 2 weeks, the patient has not felt down, depressed or hopeless. During the past 2 weeks, the patient has not felt little interest or pleasure in doing things. Insurance Insurance reviewed Visit number: 4 [facility] [place] Ins: N/A Dx: Pain L foot M79.672, Pathological fx L toes M84.478D, Solitary bone cyst L ankle/foot M85.472 Evaluating PT: Miguel Angel Rosado Subjective Patient reports:. Patent reported 0/10 pain after treatment. Home program performing as directed: Yes. Precautions: Fall Risk: low Treatment Time in clinic started at 10:00 Time in clinic ended at 10:39 Total time in clinic is 39 minutes. Total timed code time is 38 minutes. Therapeutic exercise (45898): timed minutes 38, units 3 . SciFit Stepper, seat 18, Lv-3, LE's only x5' Long sitting AROM Left ankle - PF/DF x 15 - INV/EV x15 - CW/ CCW circles x15 ea direction Long sitting L Calf stretch with strap 15" x3 in Long sitting L NV/EV stretch w/ BOSU stretch strap 10? x3 ea direction L Ankle PRE's in long sitting, INV. EV. DF, green band x 15 each Seated L towel scrunches 2x10 Seated L great toe extension x15 Seated L lesser toes extension x15 Seated L toe spreading x15 SLS 3x 30? (N) Seated Heel raises 2 x 10 (N) Seated toe raises 2 x 10 (N) . Provided today: education . Edu pt on proper form and speed of movement with ex's. Pt verbalized/demonstrated good understanding. 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 LTG's: 1) Improve L ankle and 2nd toe strength from 4-/5 L 2nd toe flex/ext and 4+/5 L ankle DF/inv/ev to >= 4+/5 throughout in order to facilitate safe gait and mobility. 4-6 weeks 2) Improve L ankle PROM/AROM from 15 deg L 2nd toe ext, 13 deg L 2nd toe flex and 9 deg L DF to >= 20 deg L 2nd toe flex/ext and 12 deg L DF in order to facilitate safe gait and stair negotiation. 4-6 weeks 3) Improve L foot/ankle/toe pain from 5/10 to <= 2/10 with activity in order to improve QOL. 4-6 weeks 4) Improve LEFS score by >= 5 points in order to improve QOL. 4-6 weeks 5) Pt will be able to walk and/or go hiking >= 3-4 miles without significant L foot/toe pain/limitation. 4-[address]) Pt/caregiver will be I and consistent with HEP with handout as needed in order to maximize ankle strength and ROM/flexibility. 2-3 weeks Planned interventions include: education/instruction, gait training, home program, manual therapy, neuromuscular re-education, therapeutic activities and therapeutic exercises. Frequency and duration: 2 time(s) a week, for 4 weeks, for 8 visits. Potential to achieve rehab goals is good Continue to progress with L great toe/foot ROM/flexibility and strengthening as able in order to improve quality of gait. Progress with POC, as tolerated. Assessment Good form and tolerance to ex's performed today without significant pain increase. Response to treatment: improved joint mobility/ROM, improved strength and improved flexibility. Patient was able to complete today's treatment with ease. Adult Risk Screening Initial Fall Risk Screening: LIGIA has fallen in the last 6 months. She has fallen due to dog tripped pt on road walking. Her fall resulted in the following injury: bruised/injured her knees and was sore for a couple weeks. LIGIA does not have a fear of falling. She does not need assistance with sitting, standing or walking. Does not need assistance walking in her home. She does not need assistance in an unfamiliar setting. The patient is not using an assistive device. Pain Scale: On a scale of 0 to 10, the patient rates the pain at 2. Please identify location of pain: underside of 2nd toe 3-4 with ambulation. Pain Quality: aching, tightness and numbness. The pain makes it hard for the patient to do these things: walking. Depression/Suicide Screening: During the past 2 weeks, the patient has not felt down, depressed or hopeless. During the past 2 weeks, the patient has not felt little interest or pleasure in doing things. 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 The pt reports that her L toe/foot feels pretty good overall so far this morning. Just mild pain reported with gait. 07/03 this am. Precautions: Fall Risk: low Treatment Time in clinic started at 9:00 am Time in clinic ended at 9:40 am Total time in clinic is 40 minutes. Total timed code time is 38 minutes. Therapeutic exercise (83424): timed minutes 38, units 3 . SciFit Stepper, seat 18, Lv-2, LE's only x5' Long sitting AROM Left ankle - PF/DF x 15 - INV/EV x15 - CW/ CCW circles x15 ea direction Long sitting L Calf stretch with strap 15" x3 in Long sitting L NV/EV stretch w/ BOSU stretch strap 15" x3 ea direction L Ankle PRE's in long sitting, INV. EV. DF, green band x 15 each Seated L towel scrunches 2x10 Seated L great toe extension x12 Seated L lesser toes extension x12 Seated L toe spreading x12 . Provided today: education . [facility] pt on proper form and speed of movement with ex's. Pt verbalized/demonstrated good understanding. 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 LTG's: 1) Improve L ankle and 2nd toe strength from 4-/5 L 2nd toe flex/ext and 4+/5 L ankle DF/inv/ev to >= 4+/5 throughout in order to facilitate safe gait and mobility. 4-6 weeks 2) Improve L ankle PROM/AROM from 15 deg L 2nd toe ext, 13 deg L 2nd toe flex and 9 deg L DF to >= 20 deg L 2nd toe flex/ext and 12 deg L DF in order to facilitate safe gait and stair negotiation. 4-6 weeks 3) Improve L foot/ankle/toe pain from 5/10 to <= 2/10 with activity in order to improve QOL. 4-6 weeks 4) Improve LEFS score by >= 5 points in order to improve QOL. 4-6 weeks 5) Pt will be able to walk and/or go hiking >= 3-4 miles without significant L foot/toe pain/limitation. 4-[address]) Pt/caregiver will be I and consistent with HEP with handout as needed in order to maximize ankle strength and ROM/flexibility. 2-3 weeks Planned interventions include: education/instruction, gait training, home program, manual therapy, neuromuscular re-education, therapeutic activities and therapeutic exercises. Frequency and duration: 2 time(s) a week, for 4 weeks, for 8 visits. Potential to achieve rehab goals is good Plan to continue with ex's and add standing strengthening ex's for improved ease of stair negotiation. - MA. Assessment Patient identified by name AND . Patient wore a mask during treatment d/t Covid-19 precautions. Treatment consisted of ther ex's for left ankle and toe strengthening and ROM. Progressed treatment today with addition of all ex's done today added to HEP. Patient performed ex's with good technique and only slight increase in pain at end of treatment. Adult Risk Screening Initial Fall Risk Screening: LIGIA has fallen in the last 6 months. She has fallen due to dog tripped pt on road walking. Her fall resulted in the following injury: bruised/injured her knees and was sore for a couple weeks. LIGIA does not have a fear of falling. She does not need assistance with sitting, standing or walking. Does not need assistance walking in her home. She does not need assistance in an unfamiliar setting. The patient is not using an assistive device. Pain Scale: On a scale of 0 to 10, the patient rates the pain at 4. Please identify location of pain: underside of 2nd toe 3-4 with ambulation. Pain Quality: aching, tightness and numbness. The pain makes it hard for the patient to do these things: walking. She uses tobacco: A few times a month. Depression/Suicide Screening: During the past 2 weeks, the patient has not felt down, depressed or hopeless. During the past 2 weeks, the patient has not felt little interest or pleasure in doing things. 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 Patient reports that the bottom of her foot was a little irrritated post treatment and it limited her gait and functional activities. Reports 3-4/10 pain in L underside of 2nd toe pretreatment and 4/10 post treatment. Precautions: Fall Risk: low Treatment Time in clinic started at 10:48 am Time in clinic ended at 11:33 am Total time in clinic is 45 minutes. Total timed code time is 43 minutes. Therapeutic exercise (66530): timed minutes 43, units 3 . SciFit Stepper, seat 18, Lv-2, LE's only x5' (N) Long sitting AROM Left ankle (N) - PF/DF x15 - INV/EV x15 - CW/ CCW circles x15 ea direction Long sitting L Calf stretch with strap 15" x3 in (N) Long sitting L NV/EV stretch w/ BOSU stretch strap 15" x3 ea direction (N) L Ankle PRE's in long sitting, INV. EV. DF, red band x 15 each (N) Seated L towel scrunches 2x10 Seated L great toe extension x12 (N) Seated L lesser toes extension x12 (N) Seated L toe spreading x12 (N) . Provided today: education . 10/08/21 HEP and red band given for: AROMPR/DF/INV/EV/ circles, calf stretch with strap, Resistive DF/INV/EV with red band, toe towel scrunches, great toe extension, lesser toes extension and toe spreading. 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 LTG's: 1) Improve L ankle and 2nd toe strength from 4-/5 L 2nd toe flex/ext and 4+/5 L ankle DF/inv/ev to >= 4+/5 throughout in order to facilitate safe gait and mobility. 4-6 weeks 2) Improve L ankle PROM/AROM from 15 deg L 2nd toe ext, 13 deg L 2nd toe flex and 9 deg L DF to >= 20 deg L 2nd toe flex/ext and 12 deg L DF in order to facilitate safe gait and stair negotiation. 4-6 weeks 3) Improve L foot/ankle/toe pain from 5/10 to <= 2/10 with activity in order to improve QOL. 4-6 weeks 4) Improve LEFS score by >= 5 points in order to improve QOL. 4-6 weeks 5) Pt will be able to walk and/or go hiking >= 3-4 miles without significant L foot/toe pain/limitation. 4-[address]) Pt/caregiver will be I and consistent with HEP with handout as needed in order to maximize ankle strength and ROM/flexibility. 2-3 weeks Planned interventions include: education/instruction, gait training, home program, manual therapy, neuromuscular re-education, therapeutic activities and therapeutic exercises. Frequency and duration: 2 time(s) a week, for 4 weeks, for 8 visits. Potential to achieve rehab goals is good Plan of care was developed with input and agreement by the patient. Assessment The pt presents with Medical Dx of pain of L foot, Fx L toes, bone cyst L foot/ankle. Pt presents with the following deficits: increased pain, decreased strength, ROM, flexibility, balance, gait and functional mobility. Pt would benefit from PT services in order to improve on these deficits and to maximize strength and ability for functional activity/mobility. Clinical Presentation: Evolving with changing characteristics. Level of Complexity: low Problem List: balance, decreased functional level, decreased knowledge of HEP, flexibility, gait/locomotion, pain, range of motion/joint mobility and strength. Reason For Visit Initial Evaluation. Referred by: Dr. Khari Redmond, Primary Care Physician: Dr. Pelayo Adult Risk Screening Initial Fall Risk Screening: LIGIA has fallen in the last 6 months. She has fallen due to dog tripped pt on road walking. Her fall resulted in the following injury: bruised/injured her knees and was sore for a couple weeks. LIGIA does not have a fear of falling. She does not need assistance with sitting, standing or walking. Does not need assistance walking in her home. She does not need assistance in an unfamiliar setting. The patient is not using an assistive device. Pain Scale: On a scale of 0 to 10, the patient rates the pain at 3. Please identify location of pain: L 2nd toe 3-5/10 at worse. Pain Quality: aching, tightness and numbness. The pain makes it hard for the patient to do these things: walking. She uses tobacco: A few times a month. Depression/Suicide Screening: During the past 2 weeks, the patient has not felt down, depressed or hopeless. During the past 2 weeks, the patient has not felt little interest or pleasure in doing things. 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 The pt had a tumor excision on her L 2nd digit back on 03/12/2021 and reports that she still has numbness around her toe as well as pain. Pt reports that it also feels stiff and tight and limits her ability to walk longer distances. Pt also reports that it affects her balance. Pt has hx of L ankle orthopedic surgery back in 2009 and reports that she does have some L foot/ankle weakness. Pain Exacerbating Factors: squatting and walking. Pain Relieving Factors: rest and ice. Current Medical Management:. None. Precautions: Fall Risk: low Functional Assessment Prior level of function: Pt is I with all ADL's and IADL's prior. Functional limitations: participation in hobbies , participation in leisure activities , participation in home management , lifting and pushing and pulling . Patient stated goal(s) for treatment include: relieving pain , increasing strength , increasing mobility , reducing symptoms and returning to regular activity levels . be able to walk longer distances and go hiking without significant L toe pain/limitation. 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 Current Status: unchanged. Patient Awareness: Patient is aware of her diagnosis and prognosis. Living Environment: multi-story home, stairs with 2 flts with rails rails, walk-in shower and tub/shower combo. Social Support: lives alone. Personal Factors That May Impact Care:. None. Yellow Flags:. None. Objectiv (more content not included)... Normal [employer]works COVID-19, MOLECULARon 2020 SARS-CoV-2 (COVID-19) RNA TESS+probe Ql (Unsp spec) Not detected Normal Not Detected [facility] Comment on above: Result Comment: This test was performed under the FDA's Emergency Use Authorization (EUA). Testing was performed using the Shirley SARS-CoV-2 RT-PCR assay on the REES46 Shirley Fiestah0 System. This test has not been approved for use in asymptomatic patients and its performance in this patient population has not been evaluated. Negative results do not rule out the presence of SARS-CoV-2/COVID-19. Fact sheets for this EUA can be found at the following links: For Healthcare Providers: https://www.[employer]gov/media/858056/download For Patients: https://www.[employer]gov/sigmacare/847112/download Performed By: #### L [id number] #### [facility] [address] [place] [address] Javier Finley M.D. [id number] MR FOOT LEFT WITH AND WITHOU T CONTRASTon 02-19-2021 MR FOOT LEFT WITH AND WITHOUT CONTRAST EXAMINATION: MR FOOT LEFT WITH AND WITHOUT CONTRAST HISTORY: ORDERING SYSTEM PROVIDED HISTORY: Other synovitis and tenosynovitis, left ankle and foot, TECHNOLOGIST PROVIDED HISTORY: Illness/Other Reason for exam: tumor of left second digit, r/o malignancy Encounter Type: Initial Additional signs and symptoms: ORDERING SYSTEM PROVIDED DIAGNOSIS CODES: M65.872 Other synovitis and tenosynovitis, left ankle and foot COMPARISON: None TECHNIQUE: Multiplanar, multisequence imaging of the left foot before and after the uneventful intravenous administration of gadolinium contrast CONTRAST: GADOTERATE MEGLUMINE 0.5 MMOL/ML (376.9 MG/ML) INTRAVENOUS SOLUTION - 12.5 mL, FINDINGS: Study mildly degraded by motion. There is abnormal marrow signal involving the 2nd proximal phalanx. The lesion is T1 hypointense, T2 hyperintense with mild peripheral enhancement. There is mild cortical thinning. No discrete soft tissue component. There is minimal endosteal scalloping identified. Findings favor to represent intraosseous ganglion cyst, unicameral bone cyst or enchondroma. No similar appearing lesions identified. The remaining bone marrow signal is normal. There are postsurgical changes from 1st metatarsal osteotomy. Visualized ligaments and tendons are intact, specifically, the Lisfranc ligament is intact. The plantar musculature demonstrates normal bulk and signal. The remaining soft tissues are unremarkable.. IMPRESSION: 1. 1.9 cm lesion present within the 2nd proximal phalanx. Finding favors represent an intraosseous ganglion cyst, unicameral bone cyst or enchondroma. There is mild cortical thinning. No discrete soft tissue component identified. No other aggressive osseous features identified. Recommend correlation with plain radiograph if not artery done so. Workstation ID: [id number] Dictated by: MEL BERMUDEZ on WedFeb 20, 2021 10:48:58 AM EDT Transcribed by: MEL BERMUDEZ on WedFeb 20, 2021 10:48:58 AM EDT Finalized by: MEL BERMUDEZ on WedFeb 20, 2021 10:48:58 AM EDT [facility] Comment on above: Order Comment: Injur y/Trauma or Illness?:Illness/Other How long have you had these symptoms (acute/chronic)?:Acute Reason for exam?:tumor of left second digit, r/o malignancy Type of Exam?:Initial Additional signs and symptoms?: MA Mamm Screen w/CAD if perf ormed bilaton 03-02-2017 Bilirubin (direct) Exam Date/Time:03/02/2017 10:22 EDTReason for Exam:SCREENINGReportBIL ATERAL DIGITAL SCREENING MAMMOGRAMS WITH [employer] V2.1.3.1HISTORY: Screening.COMPARISON: 03/14/2014, 03/11/2012 and 09/30/2009.FINDINGS: The breasts are moderately dense. The parenchyma is symmetrical. Nospiculated density, clustered microcalcification, or architectural distortionis seen. The skin thickness is normal.IMPRESSION:Stabl e breast parenchyma from prior studies.BI-RADS 2 - Benign, no evidence of malignancy. Normal interval followup isrecommended in 12 months.OVERALL ASSESSMENT- BENIGNA letter of notification will be sent to the patient regarding the results.Assessment / Recommendation: 2-1 Normal interval follow-upBreast density: Heterogeneously DenseRecall interval: 012 months FINAL REPORT Dictated: 03/02/2017 5:00 pm Urbano Manriquez MD KSigned (Electronic Signature): 03/02/2017 5:00 pmSigned by: Urbano Manriquez MD Technologist: Sofyaessment: BI-RADS Category 2-Benign findingRecommendation: Normal interval follow-up Normal [facility] Vital Signs Date Time Vital Sign Value Performing Clinician Faci helen 03-09-2023 10:40-0400 Body height 172.[address] Micaela Pelayo Work Phone: [facility] 03-09-2023 10:40-0400 Body mass index (BMI) [Ratio] 23.4 kg/m2 Dr. Micaela Pelayo Work Phone: [facility] 03-09-2023 10:40-0400 Body temperature 97.5 [degF] Dr. Micaela Pelayo Work Phone: [facility] 03-09-2023 10:40-0400 Body weight 69.[address] Micaela Pelayo Work Phone: [facility] 03-09-2023 10:40-0400 Diastolic blood pressure 77 mm[Hg] Dr. Micaela Pelayo Work Phone: [facility] 03-09-2023 10:40-0400 Heart rate 88 /min Dr. Micaela Pelayo Work Phone: [facility] 03-09-2023 10:40-0400 Respiratory rate 16 /min Dr. Micaela Pelayo Work Phone: [facility] 03-09-2023 10:40-0400 SaO2% (BldA) [Mass fraction] 96 % Dr. Micaela Pelayo Work Phone: [facility] 03-09-2023 10:40-0400 Systolic blood pressure 112 mm[Hg] Dr. Micaela Pelayo Work Phone: [facility] 01-28-2023 10:03-0400 Body height 172.[address] Micaela Pelayo Work Phone: [facility] 01-28-2023 10:03-0400 Body temperature 98.8 [degF] Dr. Micaela Pelayo Work Phone: [facility] 01-28-2023 10:03-0400 Heart rate 80 /min Dr. Micaela Pelayo Work Phone: [facility] 01-28-2023 10:03-0400 Respiratory rate 16 /min Dr. Micaela Pelayo Work Phone: [facility] 01-28-2023 10:03-0400 SaO2% (BldA) [Mass fraction] 97 % Dr. Micaela Pelayo Work Phone: [facility] 01-19-2023 10:51-0400 Body mass index (BMI) [Ratio] 23.1 kg/m2 Dr. Micaela Pelayo Work Phone: [facility] 01-19-2023 10:51-0400 Body temperature 98.7 [degF] Dr. Micaela Pelayo Work Phone: [facility] 01-19-2023 10:51-0400 Body weight 69.[address] Micaela Pelayo Work Phone: [facility] 01-19-2023 10:51-0400 Diastolic blood pressure 85 mm[Hg] Dr. Micaela Pelayo Work Phone: [facility] 01-19-2023 10:51-0400 Heart rate 94 /min Dr. Micaela Pelayo Work Phone: [facility] 01-19-2023 10:51-0400 Respiratory rate 17 /min Dr. Micaela Pelayo Work Phone: [facility] 01-19-2023 10:51-0400 SaO2% (BldA) [Mass fraction] 97 % Dr. Micaela Pelayo Work Phone: [facility] 01-19-2023 10:51-0400 Systolic blood pressure 130 mm[Hg] Dr. Micaela Pelayo Work Phone: [facility] 09-15-2022 15:01-0400 Body height 172.7 cm Debra Ty APRN.DIRECTOR PROJECT MANAGEMENT Work Phone: [facility] 09-15-2022 15:01-0400 Body weight 68.04 kg Debra Ty APRN.DIRECTOR PROJECT MANAGEMENT Work Phone: [facility] 09-15-2022 15:01-0400 Diastolic blood pressure 85 mm[Hg] Debra Ty VP TALENT MANAGEMENT.DIRECTOR PROJECT MANAGEMENT Work Phone: [facility] 09-15-2022 15:01-0400 Heart rate 96 /min Debra Ty VP TALENT MANAGEMENT.DIRECTOR PROJECT MANAGEMENT Work Phone: [facility] 09-15-2022 15:01-0400 Respiratory rate 16 /min Debra Ty VP TALENT MANAGEMENT.DIRECTOR PROJECT MANAGEMENT Work Phone: [facility] 09-15-2022 15:01-0400 SaO2% (BldA) [Mass fraction] 97 % Debra Ty VP TALENT MANAGEMENT.DIRECTOR PROJECT MANAGEMENT Work Phone: [facility] 09-15-2022 15:01-0400 Systolic blood pressure 139 mm[Hg] Debra Ty VP TALENT MANAGEMENT.DIRECTOR PROJECT MANAGEMENT Work Phone: [facility] 06-09-2022 14:28-0500 Body height 172.7 cm Debra Ty VP TALENT MANAGEMENT.DIRECTOR PROJECT MANAGEMENT Work Phone: [facility] 06-09-2022 14:28-0500 Body weight 71.31 kg Debra Ty VP TALENT MANAGEMENT.DIRECTOR PROJECT MANAGEMENT Work Phone: [facility] 06-09-2022 14:28-0500 Diastolic blood pressure 85 mm[Hg] Debra Ty VP TALENT MANAGEMENT.DIRECTOR PROJECT MANAGEMENT Work Phone: [facility] 06-09-2022 14:28-0500 Heart rate 99 /min Debra Ty VP TALENT MANAGEMENT.DIRECTOR PROJECT MANAGEMENT Work Phone: [facility] 06-09-2022 14:28-0500 SaO2% (BldA) [Mass fraction] 100 % Debra Ty VP TALENT MANAGEMENT.DIRECTOR PROJECT MANAGEMENT Work Phone: [facility] 06-09-2022 14:28-0500 Systolic blood pressure 138 mm[Hg] Debra Flynni VP TALENT MANAGEMENT.DIRECTOR PROJECT MANAGEMENT Work Phone: [facility] 03-03-2022 14:32-0400 Body height 171.5 cm Debra Ty VP TALENT MANAGEMENT.DIRECTOR PROJECT MANAGEMENT Work Phone: [facility] 03-03-2022 14:32-0400 Body weight 68.36 kg Debra Rinai VP TALENT MANAGEMENT.DIRECTOR PROJECT MANAGEMENT Work Phone: [facility] 03-03-2022 14:32-0400 Diastolic blood pressure 68 mm[Hg] Debra Rinai VP TALENT MANAGEMENT.DIRECTOR PROJECT MANAGEMENT Work Phone: [facility] 03-03-2022 14:32-0400 Heart rate 96 /min Debra Flynni VP TALENT MANAGEMENT.DIRECTOR PROJECT MANAGEMENT Work Phone: [facility] 03-03-2022 14:32-0400 SaO2% (BldA) [Mass fraction] 99 % Debra Flynni VP TALENT MANAGEMENT.DIRECTOR PROJECT MANAGEMENT Work Phone: [facility] 03-03-2022 14:32-0400 Systolic blood pressure 129 mm[Hg] Debra Rinai VP TALENT MANAGEMENT.DIRECTOR PROJECT MANAGEMENT Work Phone: [facility] 12-02-2021 10:46-0400 Body height 170.2 cm Debra Ty VP TALENT MANAGEMENT.DIRECTOR PROJECT MANAGEMENT Work Phone: [facility] 12-02-2021 10:46-0400 Body weight 69.22 kg Debra Flynni VP TALENT MANAGEMENT.DIRECTOR PROJECT MANAGEMENT Work Phone: [facility] 12-02-2021 10:46-0400 Diastolic blood pressure 73 mm[Hg] Debra Rinai VP TALENT MANAGEMENT.DIRECTOR PROJECT MANAGEMENT Work Phone: [facility] 12-02-2021 10:46-0400 Heart rate 85 /min Debra Rinai VP TALENT MANAGEMENT.DIRECTOR PROJECT MANAGEMENT Work Phone: [facility] 12-02-2021 10:46-0400 SaO2% (BldA) [Mass fraction] 99 % Debra Flnyni VP TALENT MANAGEMENT.DIRECTOR PROJECT MANAGEMENT Work Phone: [facility] 12-02-2021 10:46-0400 Systolic blood pressure 124 mm[Hg] Debra Ty APRN.DIRECTOR PROJECT MANAGEMENT Work Phone: [facility] 09-02-2021 11:08-0400 Body height 171.5 cm Debra Ty APRN.DIRECTOR PROJECT MANAGEMENT Work Phone: [facility] 09-02-2021 11:08-0400 Body weight 64.14 kg Debra Ty VP TALENT MANAGEMENT.DIRECTOR PROJECT MANAGEMENT Work Phone: [facility] 09-02-2021 11:08-0400 Diastolic blood pressure 62 mm[Hg] Debra Ty VP TALENT MANAGEMENT.DIRECTOR PROJECT MANAGEMENT Work Phone: [facility] 09-02-2021 11:08-0400 Heart rate 91 /min Debra Ty APRN.DIRECTOR PROJECT MANAGEMENT Work Phone: [facility] 09-02-2021 11:08-0400 SaO2% (BldA) [Mass fraction] 97 % Debra Ty APRN.DIRECTOR PROJECT MANAGEMENT Work Phone: [facility] 09-02-2021 11:08-0400 Systolic blood pressure 99 mm[Hg] Debra Ty APRN.DIRECTOR PROJECT MANAGEMENT Work Phone: [facility] Encounters Encounter Date Encounter Type Care Provider Facility Start: 04-26-2025 ambulatory Geraldo Corona Facility :[facility] Start: 02-21-2025 End: 02-21-2025 ambulatory Micaela Pelayo Facility:[facility] Start: 12-06-2024 End: 12-06-[address] Micaela Pelayo DO Work Phone: -Laboratory Start: 12-06-2024 End: 12-06-2024 Patient encounter procedure SAMMI KING [employer] -Laboratory Work Phone: Start: 12-06-2024 End: 12-06-2024 ambulatory SAMMI KING Facility:[facility] Start: 06-05-2024 End: 06-05-2024 ambulatory MICAELA PELAYO [facility] Start: 05-05-2024 End: 05-05-2024 ambulatory [facility] Facility:[facility] Start: 04-14-2024 End: 04-14-2024 ambulatory [facility] Facility:[facility] Start: 03-09-2023 End: 03-09-[address] Micaela Pelayo Work Phone: [facility] Work Phone: Start: 03-09-2023 End: 03-09-[address] Micaela Pelayo Work Phone: [facility]-Outpatient Breast Imaging Work Phone: Start: 03-09-2023 End: 03-09-[address] Micaela Pelayo Work Phone: [facility] Work Phone: Start: 03-01-2023 End: 03-01-[address] Micaela Pelayo Work Phone: [facility] Work Phone: Start: 03-01-2023 End: 03-01-[address] Micaela Pelayo Work Phone: [facility] Work Phone: Start: 01-28-2023 End: 01-28-[address] Micaela Pelayo Work Phone: [facility] Work Phone: Start: 01-19-2023 End: 01-19-[address] Miceala Pelayo Work Phone: [facility] Work Phone: Start: 12-02-2022 End: 12-02-[address] [facility] Work Phone: Start: 12-02-2022 End: 12-02-2022 Patient encounter procedure [facility]-Laboratory Work Phone: Start: 10-20-2022 End: 10-20-[address] [facility] Work Phone: Start: 10-20-2022 End: 10-20-2022 Patient encounter procedure [facility]-Laboratory Work Phone: Start: 10-02-2022 End: 10-02-2022 Patient encounter procedure [facility]-Radiology, [place] Work Phone: Start: 09-15-2022 End: 09-15-2022 ambulatory [facility] Facility:[facility] Start: 09-15-2022 End: 09-15-2022 Patient encounter procedure Debra Ty APRN.DIRECTOR PROJECT MANAGEMENT Work Phone: Neurology Comment on above: Chronic migraine wit hout aura, intractable, without status migrainosus (Primary Dx) Start: 07-30-2022 ambulatory Debra nance APRN.DIRECTOR PROJECT MANAGEMENT Work Phone: Neurology Comment on above: Phone [facility] Start: 07-14-2022 Telephone encounter Debra Ty APRN.DIRECTOR PROJECT MANAGEMENT Work Phone: Neurology Comment on above: Symptoms (Headache) Refill Request Insurance Authorizat ion [facility] Start: 07-06-2022 Refill Debra nance APRN.DIRECTOR PROJECT MANAGEMENT Work Phone: Neurology Comment on above: Refill Request Start: 07-01-2022 ambulatory Debra nance APRN.DIRECTOR PROJECT MANAGEMENT Work Phone: Neurology Comment on above[facility] Start: 06-09-2022 End: 06-09-2022 ambulatory DEBRA TY Facility:[facility] Start: 06-09-2022 End: 06-09-2022 Patient encounter procedure Debra Ty APRN.DIRECTOR PROJECT MANAGEMENT Work Phone: Neurology Comment on above: Chronic migraine wit hout aura, intractable, without status migrainosus (Primary Dx) Start: 06-09-2022 Refill Debra nance APRN.DEJUAN Work Phone: Neurology Comment on above: Refill Request Start: 05-05-2022 Get Medical Advice Peggy Ty APRN.DEJUAN Work Phone: Neurology Comment on above: Travel Refill for Ro pinerole Start: 03-09-2022 Telephone encounter Debra Ty APRN.DIRECTOR PROJECT MANAGEMENT Work Phone: Neurology Comment on above: Insurance Authorizat ion (ondansetron (ZOFRAN) 8 mg tablet) Start: 03-03-2022 End: 03-03-2022 ambulatory DEBRA TY Facility:[facility] Start: 03-03-2022 End: 03-03-2022 Patient encounter procedure Debra Ty APRN.DIRECTOR PROJECT MANAGEMENT Work Phone: Neurology Comment on above: Chronic migraine wit hout aura, intractable, without status migrainosus (Primary Dx) Start: 12-22-2021 Patient encounter procedure [facility] Rowe Bisi [facility] Start: 12-16-2021 Refill Debra nance APRN.DEJUAN Work Phone: Neurology Comment on above: Refill Request Start: 12-09-2021 Telephone encounter Debra Ty APRN.DIRECTOR PROJECT MANAGEMENT Work Phone: Neurology Comment on above: Insurance Authorizat ion (Nurtec) Start: 12-02-2021 End: 12-02-2021 ambulatory DEBRA TY Facility:[facility] Start: 12-02-2021 End: 12-02-2021 Patient encounter procedure Debra Ty APRN.DEJUAN Work Phone: Neurology Comment on above: Chronic migraine wit hout aura, intractable, without status migrainosus (Primary Dx) Start: 10-28-2021 End: 10-28-2021 Patient encounter procedure [facility]-Laboratory Start: 10-23-2021 Patient encounter procedure Micaela Pelayo Work Phone: [facility] Work Phone: Start: 10-08-2021 Patient encounter procedure Micaela Pelayo Work Phone: [facility] Work Phone: Start: 09-02-2021 End: 09-02-2021 Patient encounter procedure Debra Melony VP TALENT MANAGEMENT.DIRECTOR PROJECT MANAGEMENT Work Phone: Neurology Comment on above: Chronic migraine wit hout aura, intractable, without status migrainosus (Primary Dx) Start: 07-21-2021 Telephone encounter Vikcie hernandez VP TALENT MANAGEMENT.DIRECTOR PROJECT MANAGEMENT Work Phone: Neurology Comment on above: Insurance Authorizat ion (Naratriptan) Start: 07-07-2021 End: 07-07-2021 Patient encounter procedure [facility]-Outpatient Breast Imaging Start: 03-04-2021 End: 03-04-2021 ambulatory MICAELA ROJAS [facility] Start: 02-28-2021 End: 02-28-2021 ambulatory [facility] Start: 02-19-2021 End: 02-20-2021 ambulatory [facility] Start: 09-28-2017 End: 09-29-2017 Ambulatory JEFF REGALADO Facility:[facility] Start: 03-30-2017 End: 03-31-2017 Ambulatory Micaela Pelayo Facility:[facility] Start: 03-02-2017 End: 03-03-2017 Ambulatory Micaela Rowe Bisi Facility:[facility] Procedures Date Procedure Procedure Detail Performing Clinician Start: 03-09-[address] Micaela Pelayo Work Phone: Start: 03-01-2023 Radiologic examination of knee Dr. Micaela Pelayo Work Phone: Start: 10-02-2022 X-ray of cervical spine Start: 10-02-2022 X-ray of lumbosacral spine Start: 11-26-2021 Adult depression screening assessment Debra Ty APRN.CNP Work Phone: Start: 09-01-2021 Adult depression screening assessment Debra Ty APRN.CNP Work Phone: Start: 07-07-2021 Screening mammography H/O: surgery History of hemorrhoidectomy Plan of Treatment Date Care Activity Detail Author Start: 12-02-[address] [facility] Start: 11-26-2022 Adult depression screening assessment DEPRESSION SCREENING [facility] Start: 10-02-2022 Rplcmt compl non-juan cvc w/o subq port/rfid specialist REPLACE CVAD CATH [facility] Start: 09-01-2022 Adult depression screening assessment DEPRESSION SCREENING [facility] Start: 05-24-2022 DEPRESSION ASSESSMENT DEPRESSION ASSESSMENT [facility] Start: 01-22-2022 Influenza vaccination [facility] Start: 10-23-2021 [email or web address], Provider: Dina Trevino, Status: Pen, Time: 10:00 AM PTFUADULT4, Provider: Dina Trevino, Status: Pen, Time: 10:00 AM [facility] Work Phone: Start: 10-14-2021 [email or web address], Provider: Noe Rosado, Status: Pen, Time: 9:00 AM PTFUADULT4, Provider: Noe Rosado, Status: Pen, Time: 9:00 AM [facility] Work Phone: Start: 05-24-2021 DEPRESSION ASSESSMENT DEPRESSION ASSESSMENT [facility] Start: 07-19-2017 DIABETES SCREEN DIABETES SCREEN [facility] Start: 2008 SHINGRIX VACCINE (1 of 2) SHINGRIX VACCINE (1 of 2) [facility] Start: 08-31-2003 COLOGUARD (FIT-DNA) COLOGUARD (FIT-DNA) [facility] Start: 08-31-2003 Colonoscopy COLONOSCOPY [facility] Start: 08-31-2003 COLORECTAL CANCER SCREENING COLORECTAL CANCER SCREENING [facility] Start: 08-31-[address] COLONOGRAPHY [facility] Start: 08-31-2003 FECAL OCCULT BLOOD FECAL OCCULT BLOOD [facility] Start: 08-31-2003 LIPID SCREEN LIPID SCREEN [facility] Start: 08-31-2003 SIGMOIDOSCOPY SIGMOIDOSCOPY [facility] Start: 1998 Mammography MAMMOGRAM [facility] Start: 1988 HPV TESTING HPV TESTING [facility] Start: 08-31-1979 PAP TESTING PAP TESTING [facility] Start: 1977 Urine microalbumin profile DTAP,TDAP,TD (1 - Tdap) [facility] Start: 1976 HEPATITIS C SCREENING HEPATITIS C SCREENING [facility] Start: 1976 HIV SCREENING HIV SCREENING [facility] Start: 08-31-1963 COVID-19 VACCINE (#1) COVID-19 VACCINE (#1) [facility] Start: 08-31-1963 COVID-19 VACCINE (1) COVID-19 VACCINE (1) [facility] Start: 03-01-1959 COVID-19 VACCINE (#1) COVID-19 VACCINE (#1) [facility] Alkaline phosphatase - bone isoenzyme measurement [facility] Alkaline phosphatase [Enzymatic activity/volume] in Serum or Plasma [facility] Alkaline phosphatase liver isoenzyme measurement [facility] Intestinal alkaline phosphatase measurement [facility] Immunizations Immunization Date Immunization Notes Care Provider Eduardo smith 03-08-2014 influenza virus vaccine, whole virus Debra Ty APRN.DIRECTOR PROJECT MANAGEMENT Work Phone: [facility] 02-21-2014 Influenza virus vaccine [facility] Payers Date Payer Category Payer Self-pay [id number] 2018 Unknown MMO MMO [employer] [id number] 2018-Present [phone] [address] [place] [address] PPO [id number] 2016 Unknown 2013 Unknown [id number] 1960 Unknown [id number] 1960 Unknown [id number] 1960 Unknown [id number] 1960 Unknown [id number] 1960 Unknown [id number] Unknown [id number] Unknown [id number] Unknown [id number] Unknown [id number] Unknown [id number] Social History Date Type Detail Facility Start: 01-06-2011 End: 06-16-2023 Tobacco smoking status NHIS Never smoked tobacco [facility] Work Phone: Start: 01-06-2011 End: 03-03-2022 Tobacco use and exposure Smokeless tobacco non-user [facility] Work Phone: Start: 09-02-2021 End: 09-15-2022 Alcohol intake Current drinker of alcohol (finding) [facility] Start: 01-06-2011 History SDOH Alcohol Comment socially [facility] Start: 1960 Sex Assigned At Female [facility] Start: 05-08-2021 End: 03-09-2023 Tobacco smoking status IAIS Unknown if ever smoked [facility] Start: 11-22-2021 End: 03-03-2022 Exposure to SARS-CoV-2 (event) Not sure [facility] Start: 07-24-2014 Occasional [facility] Start: 07-24-2014 Spouse/ Signif icant Other [facility] Start: 07-24-2014 Non-smoker [facility] Clinical Notes 05-13-2006 to 09-15-2022 Debra Ty APRN.CNP - 09/15/2022 3:00 PM EDTPatient InstructionsTelephone Encounter - Debra Ty APRN.CNP - 07/29/2022 11:17 AM ESTPatient InstructionsPatient Instructions Note Date & Type Note Facility 09-15-2022 Note HNO ID: [id number] Author: Debra Ty APRN.DEJUAN Service: ? Author Type: Nurse Practitioner Type: Progress Notes Filed: 09/15/2022 3:32 PM Note Text: Headache Center Follow-up Visit Miscellaneous Patient Concerns: Did not see much benefit with Nurtec and experienced some nausea. Does not want to continue Nurtec at this time. Using Naratriptan PRN with PCP office. Follow-Up Onabotulinum Toxin A (BotoxTM) for Migraine Indication: Chronic Intractable Migraine Referral Expiration: 03/02/2023 Prior to the initiation of the FIRST treatment with Onabotulinum Toxin A, the patient reported the following average headache frequency over the past 3 MONTHS: Number of moderate-severe migraine days/month: 16 Number of mild migraine days/month: 5 Number of headache free days/month: 9 (216 headache-free hours) Migraine severity: 8/10 After treatment with Onabotulinum Toxin A: Number of moderate-severe migraine days/month: 1 Number of mild migraine days/month: 8 Number of headache free days/month: 21 (504 headache-free hours) Migraine severity: 4/10 Patient reduction in overall migraine days: Yes Patient reduction in moderate-severe migraine days: Yes Patient reduction of headache hours by 100 hours or more: Yes (reduction of 288 hours) The patient has been assessed for disorders which could contribute to breathing or swallowing difficulty, and there is no contraindication with PREEMPT Botox. There is no documented allergic reaction/hypersensitivity to any botulinum toxin and there is no active infection at proposed injection site. HEADACHE SCORES: Headache Questions 02/24/2022 06/08/2022 09/12/2022 ER visits since last office visit: 0 0 0 Hospital stays since last office visit 0 0 0 Limited ADLs in the last month: 1 1 1 Days missed from work or school in the last month: 0 0 0 Days headache pain free in the last month: 20 25 21 Days per month with ALL of the following symptoms - decreased productivity, light sensitivity and nausea: 4 1 1 Initial improvement of headache after botox injection at last visit: Much improved Minimally improved Much improved PRN medication usage in the last month: 10 6 9 Patient impression of improvement since last visit: Minimally improved Much improved No change HIT-6 02/24/2022 06/08/2022 09/12/2022 HIT-6 - - - HIT-6 46 (Little or no impact) 48 (Little or no impact) 54 (Moderate impact) LISANDRO - 2/7 SCORES 02/24/2022 06/08/2022 09/12/2022 LISANDRO-2 Score 2 2 1 Migraine Specific QOL - Higher scores indicate better HRQL 02/24/2022 06/08/2022 09/12/2022 Role Function-Restrictive Transformed Score (range: 0-100) 88.57 80 80 Role Function-Preventive Transformed Score (range: 0-100) 100 100 90 Emotional Function Transformed Score (range: 0-100) 100 100 93.33 PHQ-9 02/24/2022 06/08/2022 09/12/2022 Score 7 8 6 BP 139/85 (BP Site: Left Arm, BP Position: Sitting, BP Cuff Size: Regular Adult) Pulse 96 Resp 16 Ht 172.7 cm (5' 8") Wt 68 kg (150 lb) SpO2 97% BMI 22.81 kg/m? Patient name: Ligia Hanley : 1960 ALLERGIES Allergen Reactions Flagyl [Metronidazo* Rash Keflex [Cephalexin] Other: See Comments Patient states she had Muscle spasms in back AND legs for days Nsaids (Non-Steroid* GI Upset Seasonal Allergies Cough UNIVERSAL PROTOCOL / SAFETY CHECKLIST Procedure: Onabotulinum toxin A for migraine Informed Consent Consent Obtained: Written [place] Protocol A moment to CARE was completed SIGN IN Personnel directly involved with the procedure wore the appropriate PPE Special Equipment: N/A Patient/Surrogate Stated/Verified: Patient name, Date of , Relevant allergies and Intended procedure TIME OUT Intended patient and procedure match the source document(s) Consent documented and matches the intended procedure No relevant labs, photos, and/or imaging studies were applicable for review. No correct side/site applicable for marking and visibility. No medications required for procedure. No fire risk assessment and interventions applicable. No implant(s) inserted. SIGN OUT No specimen collected. No instruments, equipment or retained foreign bodies applicable. Post-procedure follow-up management communicated and Plan of Care Visit completed when applicable Written Consent Obtained: Written LOT #: [id number] Expiration Date: Month: Year: 2024 Second vial: LOT #: [id number] Expiration Date: Month: Year: 2024 Injection Sites Left (Units) Left (Sites) Right (Units) Right (Sites) TOTAL (Units) Commercial Crabber 5 1 5 1 10 Procerus Units: 5 Sites: 1 5 Frontalis 10 2 10 2 20 Temporalis optional follow the pain 20 10 4 2 20 4 50 Occipitalis optional follow the pain 15 30 3 6 15 5 3 1 65 Cervical PSP 10 2 10 2 20 Trapezius 15 3 15 3 30 Total Units used: 200 Total Units wasted: 0 Patient tolerated procedure well. Prior Therapies Duration of Use Dose Side effect Shawna (more content not included)... [facility] 09-15-2022 History of Presen t illness Narrative [facility] Follow-up Visit Miscellaneous Patient Concerns: Did not see much benefit with Nurtec and experienced some nausea. Does not want to continue Nurtec at this time. Using Naratriptan PRN with PCP office. Follow-Up Onabotulinum Toxin A (BotoxTM) for Migraine Indication: Chronic Intractable Migraine Referral Expiration: 03/02/2023 Prior to the initiation of the FIRST treatment with Onabotulinum Toxin A, the patient reported the following average headache frequency over the past 3 MONTHS: Number of moderate-severe migraine days/month: 16 Number of mild migraine days/month: 5 Number of headache free days/month: 9 (216 headache-free hours) Migraine severity: 8/10 After treatment with Onabotulinum Toxin A: Number of moderate-severe migraine days/month: 1 Number of mild migraine days/month: 8 Number of headache free days/month: 21 (504 headache-free hours) Migraine severity: 4/10 Patient reduction in overall migraine days: Yes Patient reduction in moderate-severe migraine days: Yes Patient reduction of headache hours by 100 hours or more: Yes (reduction of 288 hours) The patient has been assessed for disorders which could contribute to breathing or swallowing difficulty, and there is no contraindication with PREEMPT Botox. There is no documented allergic reaction/hypersensitivity to any botulinum toxin and there is no active infection at proposed injection site. HEADACHE SCORES: Headache Questions 02/24/2022 06/08/2022 09/12/2022 ER visits since last office visit: 0 0 0 Hospital stays since last office visit 0 0 0 Limited ADLs in the last month: 1 1 1 Days missed from work or school in the last month: 0 0 0 Days headache pain free in the last month: 20 25 21 Days per month with ALL of the following symptoms - decreased productivity, light sensitivity and nausea: 4 1 1 Initial improvement of headache after botox injection at last visit: Much improved Minimally improved Much improved PRN medication usage in the last month: 10 6 9 Patient impression of improvement since last visit: Minimally improved Much improved No change HIT-6 02/24/2022 06/08/2022 09/12/2022 HIT-6 - - - HIT-6 46 (Little or no impact) 48 (Little or no impact) 54 (Moderate impact) LISANDRO - 2/7 SCORES 02/24/2022 06/08/2022 09/12/2022 LISANDRO-2 Score 2 2 1 Migraine Specific QOL - Higher scores indicate better HRQL 02/24/2022 06/08/2022 09/12/2022 Role Function-Restrictive Transformed Score (range: 0-100) 88.57 80 80 Role Function-Preventive Transformed Score (range: 0-100) 100 100 90 Emotional Function Transformed Score (range: 0-100) 100 100 93.33 PHQ-9 02/24/2022 06/08/2022 09/12/2022 Score 7 8 6 BP 139/85 (BP Site: Left Arm, BP Position: Sitting, BP Cuff Size: Regular Adult) Pulse 96 Resp 16 Ht 172.7 cm (5' 8") Wt 68 kg (150 lb) SpO2 97% BMI 22.81 kg/m Patient name: Ligia Hanley : 1960 ALLERGIES Allergen Reactions Flagyl [Metronidazo* Rash Keflex [Cephalexin] Other: See Comments Patient states she had Muscle spasms in back & legs for days Nsaids (Non-Steroid* GI Upset Seasonal Allergies Cough UNIVERSAL PROTOCOL / SAFETY CHECKLIST Procedure: Onabotulinum toxin A for migraine Informed Consent Consent Obtained: Written Blackburn Protocol A moment to CARE was completed SIGN IN Personnel directly involved with the procedure wore the appropriate PPE Special Equipment: N/A Patient/Surrogate Stated/Verified: Patient name, Date of , Relevant allergies and Intended procedure TIME OUT Intended patient and procedure match the source document(s) Consent documented and matches the intended procedure No relevant labs, photos, and/or imaging studies were applicable for review. No correct side/site applicable for marking and visibility. No medications required for procedure. No fire risk assessment and interventions applicable. No implant(s) inserted. SIGN OUT No specimen collected. No instruments, equipment or retained foreign bodies applicable. Post-procedure follow-up management communicated and Plan of Care Visit completed when applicable Written Consent Obtained: Written LOT #: [id number] Expiration Date: Month: Year: 2024 Second vial: LOT #: [id number] Expiration Date: Month: Year: 2024 Injection Sites Left (Units) Left (Sites) Right (Units) Right (Sites) TOTAL (Units) Commercial Crabber 5 1 5 1 10 Procerus Units: 5 Sites: 1 5 Frontalis 10 2 10 2 20 Temporalis optional follow the pain 20 10 4 2 20 4 50 Occipitalis optional follow the pain 15 30 3 6 15 5 3 1 65 Cervical PSP 10 2 10 2 20 Trapezius 15 3 15 3 30 Total Units used: 200 Total Units wasted: 0 Patient tolerated procedure well. Prior Therapies Duration of Use Dose Side effect Analgesic Tramadol (Ultram) Anti-Convulsant Divalproex sodium (Depakote) Anti-Depressant and Antipsychotic Desvenlafaxine (Pristiq) Antiemetics Ondansetron Prochlorperazine Anti-Migraine Dihydroergotamine (DHE-45, Migranal) Methylergonovine (Methergine) Naratriptan (Amerge) Sumatriptan (Imitrex, Sumavel) Zolmitriptan (Zomig) Botulinum Toxin Onabotulinum Toxin A (Botox) Muscle Relaxer Baclofen (Lioresal) Tizanidine (Zanaflex) Sleep Aids Trazodone (Desyrel) Supplements Magnesium Over the Counter Medications Acetaminophen (Tylenol) Debra Ty APRN.DEJUAN documented in this encounter [facility] 09-15-2022 Instructions Debra Ty APRN.CNP - 09/15/2022 2:51 PM EDT AFTER VISIT CARE BOTOX INJECTION While these procedures can be extremely helpful as part of your headache treatment plan, they can irritate the muscles and tissues in your head, neck and shoulders. Proper follow-up care is important to avoid muscle spasms and temporary pain increase within the following 3-5 days after your clinic visit. Here are some tips to help decrease side-effects that may occur and maximize the effectiveness of your pain relief -HYDRATION Hydration is important to help nourish your muscles and tissues. Drink 60-80 oz of non caffeinated fluid at least for 3 days after your visit. -REST Rest will help avoid further irritation of muscle and tissues. Remember that you need to give your body time to adjust. NO strenuous activity for at least the first 24 hours after your visit. Gentle stretching, yoga, meditation or even swimming is OK and encouraged. -ICE/HEAT Since these procedures irritate muscles, there can be some swelling. Alternating ice and heat every 3-5 times per day may help decrease this, while also optimizing pain relief Use cool gel packs for ice for 10 min. Use a warm moist towel covered with a dry towel on neck and shoulders. Alternate stretching each side of the neck. -STRETCHING Slow, gentle stretching of the neck and shoulders once every hour is helpful to avoid muscle spasms. -TREAT MUSCLE SPASMS If you are already prescribed a muscle relaxer such as baclofen, tizanidine or flexeril, use as directed. If you do not have one, talk to your provider to find out if this would be safe for you to use. Do not rub or massage the area for 48-72 hours. -OTHER No hair dyes or permanents for 24 hours. If you are paying out of pocket for Botox go online to Botox Savings Program and see if you qualify for reimbursement. Return in 3 months for your next Botox Injection documented in this encounter [facility] 07-29-2022 Miscellaneous Notes Can review at upcoming appointment in August or patient can schedule follow-up visit to discuss. Debra Ty APRN.CNP The PA for the Nurtec is a renewal. Patient last visit was 06/09/22 and no documentation was made on usage of medication. Can the renewal documentation be incorporated in visit or does patient need a follow up visit for updated information? Lissy Villalobos Prior Authorization for Medications Requested by (MyChart, Pharmacy, Patient Call, Fax) : Patient Call Pharmacy Name: [facility] Phone # : [phone] Name of Medication : Nurtec Dose : 75mg If renewal, auth date expiration: NA Prescribing Provider: Melony Last OV: 06/09/22 with Melony Insurance Provider : [employer]/ Rx Care Is insurance card scanned in, including Rx info? Yes Rx ID number: [id number] Rx BIN: [id number] Rx PCN: [id number] Rx Grp: [id number] Insurance CoverMyMeds Garcia: NA E-PA? No documented in this encounter [facility] 07-14-2022 Miscellaneous Notes The following approved medication requests have been transmitted electronically. Requested Prescriptions Signed Prescriptions Disp Refills ondansetron (ZOFRAN) 8 mg tablet 30 tablet 5 Sig: Take 1 tablet by mouth once daily as needed for nausea/vomiting. Authorizing Provider: DEBRA TY rOPINIRole (REQUIP) 0.5 mg tablet 60 tablet 5 Si - 2 tabs qhs for RLS Authorizing Provider: DEBRA TY APRN.CNP July 14, 2022 9:28 PM Physician: Melony Call from patient requesting refill. Please E-Scribe Last office visit 06/09/2022 with Melony in person Next office visit 09/15/2022 with Winnie in person Requested Prescriptions Pending Prescriptions Disp Refills ondansetron (ZOFRAN) 8 mg tablet 30 tablet 2 Sig: Take 1 tablet by mouth once daily as needed for nausea/vomiting. rOPINIRole (REQUIP) 0.5 mg tablet 60 tablet 0 Si - 2 tabs qhs for RLS Pharmacy Name: [facility] documented in this encounter [facility] 07-14-2022 Miscellaneous Notes Called patient to discuss current Headache. She is waiting on [facility] PA, so she doesn't have a rescue right now. Patient reports: Are you having your typical migraine? If not, what is different? Typical How long have you had this headache? 3 days Pain level of headache? 5/10 Associated Symptoms? Nausea (zofran) Have you tried migraine cycle breakers in the past that has helped (ex. steroids, etc)? -Doesn't want Muscle relaxers d/t narcolepsy -Steroids have worked (as a last resort) -Toradol has worked in the hospital, so could be an option Preferred pharmacy? [facility] [address] [place] [address] [address] [facility] [phone] I will send your answers to the provider and get back to you with their recommendations. Sandy XIE NI PHONE Name of caller : Ligia Relationship to patient : Self If not self Will need patient permission to release results or disclose health information with called documented in fyi. Was permission obtained from patient ? Yes Patient identified by Name and Date of . ( Ligia Hanley, 1960). Yes Reason for Call : Symptom Call : What are you symptoms Headache Patient would not state any further information except that she is in the middle of a cycle & is unable to get her Nurtec medication due to it needing a prior authorization. Would like something in the mean time to use until she is approved for her Nurtec. Pharmacy: [facility] [address] [place] [id number] [phone] [facility] [phone] Number to return call [phone] Okay to leave a message ? Yes Last office visit 06/09/22 with Melony Next office visit 09/15/22 with Melony Thank you calling [facility]. You will receive a return call within 48 hours ( or 2 business days if close to the weekend). If you feel that this is an urgent issue and needs immediate attention, it is recommended that you contact your primary care provider office or proceed to your nearest Urgent Care Center of Emergency Room ED for evaluation/treatment. documented in this encounter [facility] 07-06-2022 Miscellaneous Notes The following approved medication requests have been transmitted electronically. Requested Prescriptions Signed Prescriptions Disp Refills rimegepant (NURTEC ODT) 75 mg disintegrating tablet 8 tablet 2 Sig: TAKE 1 TABLET AT ONSET OF HEADACHE/MIGRAINE. ONLY TAKE 1 TABLET SINGLE DOSE IN 24 HOUR PERIOD. Authorizing Provider: STEFANIE SNEED APRN.CNP Physician: Melony Call from patient requesting refill. Please E-Scribe New pharmacy. Last office visit 06/09/2022with Melony in person Next office visit 09/15/2022 with Melony in person Requested Prescriptions Pending Prescriptions Disp Refills rimegepant (NURTEC ODT) 75 mg disintegrating tablet 8 tablet 5 Pharmacy Name: [facility] documented in this encounter [facility] 06-09-2022 Note HNO ID: [id number] Author: Debra Ty APRN.DIRECTOR PROJECT MANAGEMENT Service: ? Author Type: Nurse Practitioner Type: Progress Notes Filed: 06/09/2022 2:52 PM Note Text: Follow-Up Onabotulinum Toxin A (BotoxTM) for Migraine Indication: Chronic Intractable Migraine Treatment #: 18 Referral Expiration: 03/02/2023 Prior to the initiation of the FIRST treatment with Onabotulinum Toxin A, the patient reported the following average headache frequency over the past 3 MONTHS: Number of moderate-severe migraine days/month: 16 Number of mild migraine days/month: 5 Number of headache free days/month: 9 (216 headache-free hours) Migraine severity: 10 After treatment with Onabotulinum Toxin A: Number of moderate-severe migraine days/month: 1 Number of mild migraine days/month: 4 Number of headache free days/month: 25 (600 headache-free hours) Migraine severity: /10 Patient reduction in overall migraine days: Yes Patient reduction in moderate-severe migraine days: Yes Patient reduction of headache hours by 100 hours or more: Yes (reduction of 384 hours) Individual has obtained clinical benefit deemed significant by individual or prescriber (Y/N): Yes Patient's quality of life and ability to perform ADLs has improved (Y/N): Yes Side effects: none Wearing off: Yes - 8 weeks after treatment The patient has been assessed for disorders which could contribute to breathing or swallowing difficulty, and there is no contraindication with PREEMPT Botox. There is no documented allergic reaction/hypersensitivity to any botulinum toxin and there is no active infection at proposed injection site. HEADACHE SCORES: Headache Questions 11/26/2021 02/24/2022 06/08/2022 ER visits since last office visit: 0 0 0 Hospital stays since last office visit 0 0 0 Limited ADLs in the last month: 8 1 1 Days missed from work or school in the last month: 1 0 0 Days headache pain free in the last month: 15 20 25 Days per month with ALL of the following symptoms - decreased productivity, light sensitivity and nausea: 8 4 1 Initial improvement of headache after botox injection at last visit: Minimally improved Much improved Minimally improved PRN medication usage in the last month: 12 10 6 Patient impression of improvement since last visit: Much worse Minimally improved Much improved HIT-6 11/26/2021 02/24/2022 06/08/2022 HIT-6 - - - HIT-6 60 (Severe impact) 46 (Little or no impact) 48 (Little or no impact) LISANDRO - 2/7 SCORES 11/26/2021 02/24/2022 06/08/2022 LISANDRO-2 Score 1 2 2 Migraine Specific QOL - Higher scores indicate better HRQL 11/26/2021 02/24/2022 06/08/2022 Role Function-Restrictive Transformed Score (range: 0-100) 60 88.57 80 Role Function-Preventive Transformed Score (range: 0-100) 75 100 100 Emotional Function Transformed Score (range: 0-100) 80 100 100 PHQ-9 11/26/2021 02/24/2022 06/08/2022 Score 4 7 8 BP 138/85 (BP Site: Left Arm, BP Position: Sitting, BP Cuff Size: Regular Adult) Pulse 99 Ht 172.7 cm (5' 8") Wt 71.3 kg (157 lb 3.2 oz) SpO2 100% BMI 23.90 kg/m? Patient name: Ligia Hanley : 1960 ALLERGIES Allergen Reactions Flagyl [Metronidazo* Rash Keflex [Cephalexin] Other: See Comments Patient states she had Muscle spasms in back AND legs for days Nsaids (Non-Steroid* GI Upset Seasonal Allergies Cough UNIVERSAL PROTOCOL / SAFETY CHECKLIST Procedure: Onabotulinum toxin A for migraine Informed Consent Consent Obtained: Written Blackburn Protocol A moment to CARE was completed SIGN IN Personnel directly involved with the procedure wore the appropriate PPE Special Equipment: N/A Patient/Surrogate Stated/Verified: Patient name, Date of , Relevant allergies and Intended procedure TIME OUT Intended patient and procedure match the source document(s) Consent documented and matches the intended procedure No relevant labs, photos, and/or imaging studies were applicable for review. No correct side/site applicable for marking and visibility. No medications required for procedure. No fire risk assessment and interventions applicable. No implant(s) inserted. SIGN OUT No specimen collected. No instruments, equipment or retained foreign bodies applicable. Post-procedure follow-up management communicated and Plan of Care Visit completed when applicable Written Consent Obtained: Written LOT #: [id number] Expiration Date: Month: 3 Year: 2024 Second vial: LOT #: [id number] Expiration Date: Month: 3 Year: 2024 Injection Sites Left (Units) Left (Sites) Right (Units) Right (Sites) TOTAL (Units) Commercial Crabber 5 1 5 1 10 Procerus Units: 5 Sites: 1 5 Frontalis 10 2 10 2 20 Temporalis optional follow the pain 20 10 4 2 20 4 50 Occipitalis optional follow the pain 15 30 3 6 15 5 3 1 65 Cervical PSP 10 2 10 2 20 Trapezius 15 3 15 3 30 Total Units used: 200 Total Units wasted: 0 Patient tolerated procedure well. Prior Therapies Durat (more content not included)... [facility] 06-09-2022 Instructions Debra Ty APRN.[facility] - 06/09/2022 2:34 PM EST AFTER VISIT CARE BOTOX INJECTION While these procedures can be extremely helpful as part of your headache treatment plan, they can irritate the muscles and tissues in your head, neck and shoulders. Proper follow-up care is important to avoid muscle spasms and temporary pain increase within the following 3-5 days after your clinic visit. Here are some tips to help decrease side-effects that may occur and maximize the effectiveness of your pain relief -HYDRATION Hydration is important to help nourish your muscles and tissues. Drink 60-80 oz of non caffeinated fluid at least for 3 days after your visit. -REST Rest will help avoid further irritation of muscle and tissues. Remember that you need to give your body time to adjust. NO strenuous activity for at least the first 24 hours after your visit. Gentle stretching, yoga, meditation or even swimming is OK and encouraged. -ICE/HEAT Since these procedures irritate muscles, there can be some swelling. Alternating ice and heat every 3-5 times per day may help decrease this, while also optimizing pain relief Use cool gel packs for ice for 10 min. Use a warm moist towel covered with a dry towel on neck and shoulders. Alternate stretching each side of the neck. -STRETCHING Slow, gentle stretching of the neck and shoulders once every hour is helpful to avoid muscle spasms. -TREAT MUSCLE SPASMS If you are already prescribed a muscle relaxer such as baclofen, tizanidine or flexeril, use as directed. If you do not have one, talk to your provider to find out if this would be safe for you to use. Do not rub or massage the area for 48-72 hours. -OTHER No hair dyes or permanents for 24 hours. If you are paying out of pocket for Botox go online to Botox Savings Program and see if you qualify for reimbursement. Return in 3 months for your next Botox Injection documented in this encounter [facility] 06-09-2022 History of Presen t illness Narrative Follow-Up Onabotulinum Toxin A (BotoxTM) for Migraine Indication: Chronic Intractable Migraine Treatment #: 18 Referral Expiration: 03/02/2023 Prior to the initiation of the FIRST treatment with Onabotulinum Toxin A, the patient reported the following average headache frequency over the past 3 MONTHS: Number of moderate-severe migraine days/month: 16 Number of mild migraine days/month: 5 Number of headache free days/month: 9 (216 headache-free hours) Migraine severity: 8/10 After treatment with Onabotulinum Toxin A: Number of moderate-severe migraine days/month: 1 Number of mild migraine days/month: 4 Number of headache free days/month: 25 (600 headache-free hours) Migraine severity: 4/10 Patient reduction in overall migraine days: Yes Patient reduction in moderate-severe migraine days: Yes Patient reduction of headache hours by 100 hours or more: Yes (reduction of 384 hours) Individual has obtained clinical benefit deemed significant by individual or prescriber (Y/N): Yes Patient's quality of life and ability to perform ADLs has improved (Y/N): Yes Side effects: none Wearing off: Yes - 8 weeks after treatment The patient has been assessed for disorders which could contribute to breathing or swallowing difficulty, and there is no contraindication with PREEMPT Botox. There is no documented allergic reaction/hypersensitivity to any botulinum toxin and there is no active infection at proposed injection site. HEADACHE SCORES: Headache Questions 11/26/2021 02/24/2022 06/08/2022 ER visits since last office visit: 0 0 0 Hospital stays since last office visit 0 0 0 Limited ADLs in the last month: 8 1 1 Days missed from work or school in the last month: 1 0 0 Days headache pain free in the last month: 15 20 25 Days per month with ALL of the following symptoms - decreased productivity, light sensitivity and nausea: 8 4 1 Initial improvement of headache after botox injection at last visit: Minimally improved Much improved Minimally improved PRN medication usage in the last month: 12 10 6 Patient impression of improvement since last visit: Much worse Minimally improved Much improved HIT-6 11/26/2021 02/24/2022 06/08/2022 HIT-6 - - - HIT-6 60 (Severe impact) 46 (Little or no impact) 48 (Little or no impact) LISANDRO - 2/7 SCORES 11/26/2021 02/24/2022 06/08/2022 LISANDRO-2 Score 1 2 2 Migraine Specific QOL - Higher scores indicate better HRQL 11/26/2021 02/24/2022 06/08/2022 Role Function-Restrictive Transformed Score (range: 0-100) 60 88.57 80 Role Function-Preventive Transformed Score (range: 0-100) 75 100 100 Emotional Function Transformed Score (range: 0-100) 80 100 100 PHQ-9 11/26/2021 02/24/2022 06/08/2022 Score 4 7 8 BP 138/85 (BP Site: Left Arm, BP Position: Sitting, BP Cuff Size: Regular Adult) Pulse 99 Ht 172.7 cm (5' 8") Wt 71.3 kg (157 lb 3.2 oz) SpO2 100% BMI 23.90 kg/m Patient name: Ligia Hanley : 1960 ALLERGIES Allergen Reactions Flagyl [Metronidazo* Rash Keflex [Cephalexin] Other: See Comments Patient states she had Muscle spasms in back & legs for days Nsaids (Non-Steroid* GI Upset Seasonal Allergies Cough UNIVERSAL PROTOCOL / SAFETY CHECKLIST Procedure: Onabotulinum toxin A for migraine Informed Consent Consent Obtained: Written Blackburn Protocol A moment to CARE was completed SIGN IN Personnel directly involved with the procedure wore the appropriate PPE Special Equipment: N/A Patient/Surrogate Stated/Verified: Patient name, Date of , Relevant allergies and Intended procedure TIME OUT Intended patient and procedure match the source document(s) Consent documented and matches the intended procedure No relevant labs, photos, and/or imaging studies were applicable for review. No correct side/site applicable for marking and visibility. No medications required for procedure. No fire risk assessment and interventions applicable. No implant(s) inserted. SIGN OUT No specimen collected. No instruments, equipment or retained foreign bodies applicable. Post-procedure follow-up management communicated and Plan of Care Visit completed when applicable Written Consent Obtained: Written LOT #: [id number] Expiration Date: Month: Year: 2024 Second vial: LOT #: [id number] Expiration Date: Month: 3 Year: 2024 Injection Sites Left (Units) Left (Sites) Right (Units) Right (Sites) TOTAL (Units) Commercial Crabber 5 1 5 1 10 Procerus Units: 5 Sites: 1 5 Frontalis 10 2 10 2 20 Temporalis optional follow the pain 20 10 4 2 20 4 50 Occipitalis optional follow the pain 15 30 3 6 15 5 3 1 65 Cervical PSP 10 2 10 2 20 Trapezius 15 3 15 3 30 Total Units used: 200 Total Units wasted: 0 Patient tolerated procedure well. Prior Therapies Duration of Use Dose Side effect Analgesic Tramadol (Ultram) Anti-Convulsant Divalproex sodium (Depakote) Anti-Depressant and Antipsychotic Desvenlafaxine (Pristiq) Antiemetics Ondansetron Prochlorperazine Anti-Migraine Dihydroergotamine (DHE-45, Migranal) Methylergonovine (Methergine) Naratriptan (Amerge) Sumatriptan (Imitrex, Sumavel) Zolmitriptan (Zomig) Botulinum Toxin Onabotulinum Toxin A (Botox) Muscle Relaxer Baclofen (Lioresal) Tizanidine (Zanaflex) Sleep Aids Trazodone (Desyrel) Supplements Magnesium Over the Counter Medications Acetaminophen (Tylenol) Debra Ty APRN.DIRECTOR PROJECT MANAGEMENT documented in this encounter [facility] 06-09-2022 Miscellaneous Notes The following approved medication requests have been transmitted electronically. Requested Prescriptions Signed Prescriptions Disp Refills NURTEC ODT 75 mg disintegrating tablet 8 tablet 5 Sig: TAKE 1 TABLET AT ONSET OF HEADACHE/MIGRAINE. ONLY TAKE 1 TABLET SINGLE DOSE IN 24 HOUR PERIOD. Authorizing Provider: DEBRA TY APRN.CNP June 09, 2022 12:50 PM Physician: Melony Call from patient requesting refill. Please E-Scribe Last office visit 03/03/2022 with Melony in person Next office visit 06/09/2021 with Melony in person Requested Prescriptions Pending Prescriptions Disp Refills NURTEC ODT 75 mg disintegrating tablet [Pharmacy Med Name: NURTEC ODT 75 MG TABLET] 8 tablet 5 Sig: TAKE 1 TABLET AT ONSET OF HEADACHE/MIGRAINE. ONLY TAKE 1 TABLET SINGLE DOSE IN 24 HOUR PERIOD. [facility]acy Name: [facility] documented in this encounter [facility] 03-12-2022 Miscellaneous Notes Images from the original note were not included. Rec'd approval via fax. Effective until medical condition changes or 03/06/2023, whichever is earlier per Rosalinda. Auth #: Approval scanned to chart via [employer] Rec'd a transmission error when using the fax number below from form, so faxing to [phone] as a backup. Information faxed back to Rosalinda BUSTAMANTE at [phone]. Also scanned completed forms to patient's chart via [employer]. Form filled out and sent back to [employer] with chart notes to send to insurance company. Sandy Cochran RN Images from the original note were not included. Rec'd a fax from [employer]. E-mailed form to patient to sign, but it seems this has been denied and insurance is asking us to appeal. Once patient e-mails form back, I will send to Nurses. Prior Authorization Requested Received notification via phone from insurance Prior authorization for ondansetron (ZOFRAN) 8 mg tablet from [employer]. Insurance said that they have faxed a form to us, this needs to be on their specific form, however, we have not received this. Request forwarded to [employer] inbox for review and completion. documented in this encounter [facility] 03-03-2022 Note HNO ID: [id number] Author: Debra Ty APRN.DIRECTOR PROJECT MANAGEMENT Service: ? Author Type: Nurse Practitioner Type: Progress Notes Filed: 03/03/2022 3:02 PM Note Text: Follow-Up Onabotulinum Toxin A (BotoxTM) for Migraine Indication: Chronic Intractable Migraine Treatment #: 17 Referral Expiration: 03/02/2023 Prior to the initiation of the FIRST treatment with Onabotulinum Toxin A, the patient reported the following average headache frequency over the past 3 MONTHS: Number of moderate-severe migraine days/month: 16 Number of mild migraine days/month: 5 Number of headache free days/month: 9 (216 headache-free hours) Migraine severity: 12/31 After treatment with Onabotulinum Toxin A: Number of moderate-severe migraine days/month: 4 Number of mild migraine days/month: 6 Number of headache free days/month: 20 (480 headache-free hours) Migraine severity: 08/31 Patient reduction in overall migraine days: Yes Patient reduction in moderate-severe migraine days: Yes Patient reduction of headache hours by 100 hours or more: Yes (reduction of 264 hours) Individual has obtained clinical benefit deemed significant by individual or prescriber (Y/N): Yes Patient's quality of life and ability to perform ADLs has improved (Y/N): Yes Side effects: none Wearing off: Yes - 8 weeks after treatment HEADACHE SCORES: Headache Questions 09/01/2021 11/26/2021 02/24/2022 ER visits since last office visit: 0 0 0 Hospital stays since last office visit 0 0 0 Limited ADLs in the last month: 1 8 1 Days missed from work or school in the last month: 0 1 0 Days headache pain free in the last month: 25 15 20 Days per month with ALL of the following symptoms - decreased productivity, light sensitivity and nausea: 3 8 4 Initial improvement of headache after botox injection at last visit: Much improved Minimally improved Much improved PRN medication usage in the last month: 6 12 10 Patient impression of improvement since last visit: No change Much worse Minimally improved HIT-6 09/01/2021 11/26/2021 02/24/2022 HIT-6 - - - HIT-6 46 (Little or no impact) 60 (Severe impact) 46 (Little or no impact) LISANDRO - 2/7 SCORES 09/01/2021 11/26/2021 02/24/2022 LISANDRO-2 Score 1 1 2 Migraine Specific QOL - Higher scores indicate better HRQL 02/11/2020 11/26/2021 02/24/2022 Role Function-Restrictive Transformed Score (range: 0-100) 97.14 60 88.57 Role Function-Preventive Transformed Score (range: 0-100) 100 75 100 Emotional Function Transformed Score (range: 0-100) 100 80 100 PHQ-9 09/01/2021 11/26/2021 02/24/2022 Score 4 4 7 BP 129/68 Pulse 96 Ht 171.5 cm (5' 7.5") Wt 68.4 kg (150 lb 11.2 oz) SpO2 99% BMI 23.25 kg/m? Patient name: Ligia Hanley : 1960 ALLERGIES Allergen Reactions Flagyl [Metronidazo* Rash Keflex [Cephalexin] Other: See Comments Patient states she had Muscle spasms in back AND legs for days Nsaids (Non-Steroid* GI Upset Seasonal Allergies Cough UNIVERSAL PROTOCOL / SAFETY CHECKLIST Procedure: Onabotulinum toxin A for migraine Informed Consent Consent Obtained: Written Blackburn Protocol A moment to CARE was completed SIGN IN Personnel directly involved with the procedure wore the appropriate PPE Special Equipment: N/A Patient/Surrogate Stated/Verified: Patient name, Date of , Relevant allergies and Intended procedure TIME OUT Intended patient and procedure match the source document(s) Consent documented and matches the intended procedure No relevant labs, photos, and/or imaging studies were applicable for review. No correct side/site applicable for marking and visibility. No medications required for procedure. No fire risk assessment and interventions applicable. No implant(s) inserted. SIGN OUT No specimen collected. No instruments, equipment or retained foreign bodies applicable. Post-procedure follow-up management communicated and Plan of Care Visit completed when applicable Written Consent Obtained: Written LOT #: [id number] Expiration Date: Month: : 2023 Second vial: LOT #: [id number] Expiration Date: Month: Year: 2023 Injection Sites Left (Units) Left (Sites) Right (Units) Right (Sites) TOTAL (Units) Commercial Crabber 5 1 5 1 10 Procerus Units: 5 Sites: 1 5 Frontalis 10 2 10 2 20 Temporalis optional follow the pain 20 10 4 2 20 4 50 Occipitalis optional follow the pain 15 30 3 6 15 5 3 1 65 Cervical PSP 10 2 10 2 20 Trapezius 15 3 15 3 30 Total Units used: 200 Total Units wasted: 0 Patient tolerated procedure well. Prior Therapies Duration of Use Dose Side effect Analgesic Tramadol (Ultram) Anti-Convulsant Divalproex sodium (Depakote) Anti-Depressant and Antipsychotic Desvenlafaxine (Pristiq) Antiemetics Ondansetron Prochlorperazine Anti-Migraine Dihydroergotamine (DHE-45, Migranal) Methylergonovine (Methergine) Naratriptan (Amerge) Sumatriptan (Imitrex, Sumavel) Zolmitriptan (Zomig (more content not included)... [facility] 03-03-2022 Instructions Debra Ty APRN.DIRECTOR PROJECT MANAGEMENT - 03/03/2022 2:40 PM EDT AFTER VISIT CARE BOTOX INJECTION While these procedures can be extremely helpful as part of your headache treatment plan, they can irritate the muscles and tissues in your head, neck and shoulders. Proper follow-up care is important to avoid muscle spasms and temporary pain increase within the following 3-5 days after your clinic visit. Here are some tips to help decrease side-effects that may occur and maximize the effectiveness of your pain relief -HYDRATION Hydration is important to help nourish your muscles and tissues. Drink 60-80 oz of non caffeinated fluid at least for 3 days after your visit. -REST Rest will help avoid further irritation of muscle and tissues. Remember that you need to give your body time to adjust. NO strenuous activity for at least the first 24 hours after your visit. Gentle stretching, yoga, meditation or even swimming is OK and encouraged. -ICE/HEAT Since these procedures irritate muscles, there can be some swelling. Alternating ice and heat every 3-5 times per day may help decrease this, while also optimizing pain relief Use cool gel packs for ice for 10 min. Use a warm moist towel covered with a dry towel on neck and shoulders. Alternate stretching each side of the neck. -STRETCHING Slow, gentle stretching of the neck and shoulders once every hour is helpful to avoid muscle spasms. -TREAT MUSCLE SPASMS If you are already prescribed a muscle relaxer such as baclofen, tizanidine or flexeril, use as directed. If you do not have one, talk to your provider to find out if this would be safe for you to use. Do not rub or massage the area for 48-72 hours. -OTHER No hair dyes or permanents for 24 hours. If you are paying out of pocket for Botox go online to Botox Savings Program and see if you qualify for reimbursement. Return in 3 months for your next Botox Injection documented in this encounter [facility] 03-03-2022 History of Presen t illness Narrative Follow-Up Onabotulinum Toxin A (BotoxTM) for Migraine Indication: Chronic Intractable Migraine Treatment #: 17 Referral Expiration: 03/02/2023 Prior to the initiation of the FIRST treatment with Onabotulinum Toxin A, the patient reported the following average headache frequency over the past 3 MONTHS: Number of moderate-severe migraine days/month: 16 Number of mild migraine days/month: 5 Number of headache free days/month: 9 (216 headache-free hours) Migraine severity: 12/31 After treatment with Onabotulinum Toxin A: Number of moderate-severe migraine days/month: 4 Number of mild migraine days/month: 6 Number of headache free days/month: 20 (480 headache-free hours) Migraine severity: 08/31 Patient reduction in overall migraine days: Yes Patient reduction in moderate-severe migraine days: Yes Patient reduction of headache hours by 100 hours or more: Yes (reduction of 264 hours) Individual has obtained clinical benefit deemed significant by individual or prescriber (Y/N): Yes Patient's quality of life and ability to perform ADLs has improved (Y/N): Yes Side effects: none Wearing off: Yes - 8 weeks after treatment HEADACHE SCORES: Headache Questions 09/01/2021 11/26/2021 02/24/2022 ER visits since last office visit: 0 0 0 Hospital stays since last office visit 0 0 0 Limited ADLs in the last month: 1 8 1 Days missed from work or school in the last month: 0 1 0 Days headache pain free in the last month: 25 15 20 Days per month with ALL of the following symptoms - decreased productivity, light sensitivity and nausea: 3 8 4 Initial improvement of headache after botox injection at last visit: Much improved Minimally improved Much improved PRN medication usage in the last month: 6 12 10 Patient impression of improvement since last visit: No change Much worse Minimally improved HIT-6 09/01/2021 11/26/2021 02/24/2022 HIT-6 - - - HIT-6 46 (Little or no impact) 60 (Severe impact) 46 (Little or no impact) LISANDRO - 2/7 SCORES 09/01/2021 11/26/2021 02/24/2022 LISANDRO-2 Score 1 1 2 Migraine Specific QOL - Higher scores indicate better HRQL 02/11/2020 11/26/2021 02/24/2022 Role Function-Restrictive Transformed Score (range: 0-100) 97.14 60 88.57 Role Function-Preventive Transformed Score (range: 0-100) 100 75 100 Emotional Function Transformed Score (range: 0-100) 100 80 100 PHQ-9 09/01/2021 11/26/202102/2402/24/2022 Score 4 4 7 BP 129/68 Pulse 96 Ht 171.5 cm (5' 7.5") Wt 68.4 kg (150 lb 11.2 oz) SpO2 99% BMI 23.25 kg/m Patient name: Ligia Hanley : 1960 ALLERGIES Allergen Reactions Flagyl [Metronidazo* Rash Keflex [Cephalexin] Other: See Comments Patient states she had Muscle spasms in back & legs for days Nsaids (Non-Steroid* GI Upset Seasonal Allergies Cough UNIVERSAL PROTOCOL / SAFETY CHECKLIST Procedure: Onabotulinum toxin A for migraine Informed Consent Consent Obtained: Written Blackburn Protocol A moment to CARE was completed SIGN IN Personnel directly involved with the procedure wore the appropriate PPE Special Equipment: N/A Patient/Surrogate Stated/Verified: Patient name, Date of , Relevant allergies and Intended procedure TIME OUT Intended patient and procedure match the source document(s) Consent documented and matches the intended procedure No relevant labs, photos, and/or imaging studies were applicable for review. No correct side/site applicable for marking and visibility. No medications required for procedure. No fire risk assessment and interventions applicable. No implant(s) inserted. SIGN OUT No specimen collected. No instruments, equipment or retained foreign bodies applicable. Post-procedure follow-up management communicated and Plan of Care Visit completed when applicable Written Consent Obtained: Written LOT #: [id number] Expiration Date: Month: Year: 2023 Second vial: LOT #: [id number] Expiration Date: Month: Year: 2023 Injection Sites Left (Units) Left (Sites) Right (Units) Right (Sites) TOTAL (Units) Commercial Crabber 5 1 5 1 10 Procerus Units: 5 Sites: 1 5 Frontalis 10 2 10 2 20 Temporalis optional follow the pain 20 10 4 2 20 4 50 Occipitalis optional follow the pain 15 30 3 6 15 5 3 1 65 Cervical PSP 10 2 10 2 20 Trapezius 15 3 15 3 30 Total Units used: 200 Total Units wasted: 0 Patient tolerated procedure well. Prior Therapies Duration of Use Dose Side effect Analgesic Tramadol (Ultram) Anti-Convulsant Divalproex sodium (Depakote) Anti-Depressant and Antipsychotic Desvenlafaxine (Pristiq) Antiemetics Ondansetron Prochlorperazine Anti-Migraine Dihydroergotamine (DHE-45, Migranal) Methylergonovine (Methergine) Naratriptan (Amerge) Sumatriptan (Imitrex, Sumavel) Zolmitriptan (Zomig) Botulinum Toxin Onabotulinum Toxin A (Botox) Muscle Relaxer Baclofen (Lioresal) Tizanidine (Zanaflex) Sleep Aids Trazodone (Desyrel) Supplements Magnesium Over the Counter Medications Acetaminophen (Tylenol) Debra Ty APRN.CNP documented in this encounter [facility] 12-16-2021 Miscellaneous Notes The following approved medication requests have been transmitted electronically. Signed Prescriptions Disp Refills ondansetron (ZOFRAN) 8 mg tablet 30 tablet 2 Sig: Take 1 tablet by mouth once daily as needed for nausea/vomiting. ADARSH: No Authorizing Provider: DEBRA TY APRN.CNP December 16, 2021 11:39 AM Physician: Melony Call from patient requesting refill. Please E-Scribe Last OV: 12/02/2021 with Melony Future OV: Not Scheduled. Patient comment: [facility] said current scrip was - patient asking for new/updated script. Pending Prescriptions Disp Refills ONDANSETRON HCL 8 MG TABLET 90 tablet 3 Sig: Take 1 tablet by mouth once daily as needed. FOR NAUSEA ADARSH: No Pharmacy Name: [facility] documented in this encounter [facility] 12-10-2021 Miscellaneous Notes Called [facility] as noted in previous encounter 07/21/21.(see below) No EPA available. Spoke with Ailyn Connelly, information taken for Eliud BAÑUELOS. Stated form to be faxed to [phone] to be filled out and sent back to insurance. CMM submitted/ unable to send to plan---- Ligia Hanley (Garcia: [id number]) Nurtec 75MG dispersible tablets Form: [employer] Electronic PA Form ([employer] [facility]) Determination: Message from Plan Cannot find matching patient July 21, 2021 3:00 PM Sammi Portillo LPN 2:59 PM Note Called number provided, transferred by Jorge Alberto to [place]. PA completed over the phone. Can take 3-15 days to complete. Determination will be faxed once the decision is made. HEAVENLY Morales 11:43 AM Note Received call from [employer] stating PA needed on Naratriptan. EPA not available [facility] ID # [id number] [phone] Prior Authorization Requested Received notification via telephone from [facility] Prior authorization for [facility] ODT from [employer]. Request forwarded to [address] auth inbox for review and completion. No benefits plan listed. documented in this encounter [facility] 12-02-2021 Note HNO ID: [id number] Author: Debra Ty APRN.DIRECTOR PROJECT MANAGEMENT Service: ? Author Type: Nurse Practitioner Type: Progress Notes Filed: 12/02/2021 11:15 AM Note Text: Follow-Up Onabotulinum Toxin A (BotoxTM) for Migraine Indication: Chronic Intractable Migraine Treatment #: 16 Referral Expiration: 02/18/2022 Prior to the initiation of the FIRST treatment with Onabotulinum Toxin A, the patient reported the following average headache frequency over the past 3 MONTHS: Number of moderate-severe migraine days/month: 16 Number of mild migraine days/month: 5 Number of headache free days/month: 9 (216 headache-free hours) Migraine severity: 12/31 After treatment with Onabotulinum Toxin A: Number of moderate-severe migraine days/month: 8 Number of mild migraine days/month: 7 Number of headache free days/month: 15 (360 headache-free hours) Migraine severity: 08/31 Patient reduction in overall migraine days: Yes Patient reduction in moderate-severe migraine days: Yes Patient reduction of headache hours by 100 hours or more: Yes (reduction of 144 hours) Individual has obtained clinical benefit deemed significant by individual or prescriber (Y/N): Yes Patient's quality of life and ability to perform ADLs has improved (Y/N): Yes Side effects: none Wearing off: Yes - 8 weeks after treatment Naratriptan does help but she often has to take 2 doses. She may have return on the migraine the next day. We will trial Nurtec for rescue. We will get a precert for an Oral Calcitonin Gene-Related Peptide Receptor Antagonist (GEPANT) Rimegepant for the rescue treatment of chronic migraine . This patient meets AHS criteria for treatment of migraine with an oral small molecule CGRP antagonist GEPANT. The FDA has approved GEPANTS for the treatment of migraine. Specifically, the patient has 15 headaches per month, lasting 4 or more hours/day associated with photophobia, phonophobia, nausea, vomiting for three or more months. Medication overuse headache has been ruled out.Patient will not use with another GEPANT. The patient has tried and failed the following : Anti-Migraine Dihydroergotamine (DHE-45, Migranal) Methylergonovine (Methergine) Naratriptan (Amerge) Sumatriptan (Imitrex, Sumavel) Zolmitriptan (Zomig) HEADACHE SCORES: Headache Questions 05/29/2021 09/01/2021 11/26/2021 ER visits since last office visit: 0 0 0 Hospital stays since last office visit 0 0 0 Limited ADLs in the last month: 0 1 8 Days missed from work or school in the last month: 0 0 1 Days headache pain free in the last month: 26 25 15 Days per month with ALL of the following symptoms - decreased productivity, light sensitivity and nausea: 0 3 8 Initial improvement of headache after botox injection at last visit: Much improved Much improved Minimally improved PRN medication usage in the last month: 5 6 12 Patient impression of improvement since last visit: No change No change Much worse HIT-6 05/29/2021 09/01/2021 11/26/2021 HIT-6 - - - HIT-6 46 (Little or no impact) 46 (Little or no impact) 60 (Severe impact) LISANDRO - 2/7 SCORES 05/29/2021 09/01/2021 11/26/2021 LISANDRO-2 Score 1 1 1 Migraine Specific QOL - Higher scores indicate better HRQL 11/05/2019 02/11/2020 11/26/2021 Role Function-Restrictive Transformed Score (range: 0-100) 100 97.14 60 Role Function-Preventive Transformed Score (range: 0-100) 100 100 75 Emotional Function Transformed Score (range: 0-100) 100 100 80 PHQ-9 05/29/2021 09/01/2021 11/26/2021 Score 7 4 4 BP 124/73 (BP Site: Left Arm, BP Position: Sitting, BP Cuff Size: Regular Adult) Pulse 85 Ht 170.2 cm (5' 7") Wt 69.2 kg (152 lb 9.6 oz) SpO2 99% BMI 23.90 kg/m? Patient name: Ligia Hanley : 1960 ALLERGIES Allergen Reactions - Flagyl [Metronidazo* Rash - Keflex [Cephalexin] Other: See Comments Patient states she had Muscle spasms in back AND legs for days - Nsaids (Non-Steroid* GI Upset - Seasonal Allergies Cough UNIVERSAL PROTOCOL / SAFETY CHECKLIST Procedure: Onabotulinum toxin A for migraine Informed Consent Consent Obtained: Written Blackburn Protocol A moment to CARE was completed SIGN IN Personnel directly involved with the procedure wore the appropriate PPE Special Equipment: N/A Patient/Surrogate Stated/Verified: Patient name, Date of , Relevant allergies and Intended procedure TIME OUT Intended patient and procedure match the source document(s) Consent documented and matches the intended procedure No relevant labs, photos, and/or imaging studies were applicable for review. No correct side/site applicable for marking and visibility. No medications required for procedure. No fire risk assessment and interventions applicable. No implant(s) inserted. SIGN OUT No specimen collected. No instruments, equipment or retained foreign bodies applicable. Post-procedure follow-up management communicated and Plan of Care Visit completed when a (more content not included)... [facility] 12-02-2021 History of Presen t illness Narrative Follow-Up Onabotulinum Toxin A (BotoxTM) for Migraine Indication: Chronic Intractable Migraine Treatment #: 16 Referral Expiration: 02/18/2022 Prior to the initiation of the FIRST treatment with Onabotulinum Toxin A, the patient reported the following average headache frequency over the past 3 MONTHS: Number of moderate-severe migraine days/month: 16 Number of mild migraine days/month: 5 Number of headache free days/month: 9 (216 headache-free hours) Migraine severity: 8/10 After treatment with Onabotulinum Toxin A: Number of moderate-severe migraine days/month: 8 Number of mild migraine days/month: 7 Number of headache free days/month: 15 (360 headache-free hours) Migraine severity: 4/10 Patient reduction in overall migraine days: Yes Patient reduction in moderate-severe migraine days: Yes Patient reduction of headache hours by 100 hours or more: Yes (reduction of 144 hours) Individual has obtained clinical benefit deemed significant by individual or prescriber (Y/N): Yes Patient's quality of life and ability to perform ADLs has improved (Y/N): Yes Side effects: none Wearing off: Yes - 8 weeks after treatment Naratriptan does help but she often has to take 2 doses. She may have return on the migraine the next day. We will trial Nurtec for rescue. We will get a precert for an Oral Calcitonin Gene-Related Peptide Receptor Antagonist (GEPANT) Rimegepant for the rescue treatment of chronic migraine . This patient meets AHS criteria for treatment of migraine with an oral small molecule CGRP antagonist GEPANT. The FDA has approved GEPANTS for the treatment of migraine. Specifically, the patient has 15 headaches per month, lasting 4 or more hours/day associated with photophobia, phonophobia, nausea, vomiting for three or more months. Medication overuse headache has been ruled out.Patient will not use with another GEPANT. The patient has tried and failed the following : Anti-Migraine Dihydroergotamine (DHE-45, Migranal) Methylergonovine (Methergine) Naratriptan (Amerge) Sumatriptan (Imitrex, Sumavel) Zolmitriptan (Zomig) HEADACHE SCORES: Headache Questions 05/29/2021 09/01/2021 11/26/2021 ER visits since last office visit: 0 0 0 Hospital stays since last office visit 0 0 0 Limited ADLs in the last month: 0 1 8 Days missed from work or school in the last month: 0 0 1 Days headache pain free in the last month: 26 25 15 Days per month with ALL of the following symptoms - decreased productivity, light sensitivity and nausea: 0 3 8 Initial improvement of headache after botox injection at last visit: Much improved Much improved Minimally improved PRN medication usage in the last month: 5 6 12 Patient impression of improvement since last visit: No change No change Much worse HIT-6 05/29/2021 09/01/2021 11/26/2021 HIT-6 - - - HIT-6 46 (Little or no impact) 46 (Little or no impact) 60 (Severe impact) LISANDRO - 2/7 SCORES 05/29/2021 09/01/2021 11/26/2021 LISANDRO-2 Score 1 1 1 Migraine Specific QOL - Higher scores indicate better HRQL 11/05/2019 02/11/2020 11/26/2021 Role Function-Restrictive Transformed Score (range: 0-100) 100 97.14 60 Role Function-Preventive Transformed Score (range: 0-100) 100 100 75 Emotional Function Transformed Score (range: 0-100) 100 100 80 PHQ-9 05/29/2021 09/01/2021 11/26/2021 Score 7 4 4 BP 124/73 (BP Site: Left Arm, BP Position: Sitting, BP Cuff Size: Regular Adult) Pulse 85 Ht 170.2 cm (5' 7") Wt 69.2 kg (152 lb 9.6 oz) SpO2 99% BMI 23.90 kg/m Patient name: Ligia Hanley : 1960 ALLERGIES Allergen Reactions Flagyl [Metronidazo* Rash Keflex [Cephalexin] Other: See Comments Patient states she had Muscle spasms in back & legs for days Nsaids (Non-Steroid* GI Upset Seasonal Allergies Cough UNIVERSAL PROTOCOL / SAFETY CHECKLIST Procedure: Onabotulinum toxin A for migraine Informed Consent Consent Obtained: Written [place] Protocol A moment to CARE was completed SIGN IN Personnel directly involved with the procedure wore the appropriate PPE Special Equipment: N/A Patient/Surrogate Stated/Verified: Patient name, Date of , Relevant allergies and Intended procedure TIME OUT Intended patient and procedure match the source document(s) Consent documented and matches the intended procedure No relevant labs, photos, and/or imaging studies were applicable for review. No correct side/site applicable for marking and visibility. No medications required for procedure. No fire risk assessment and interventions applicable. No implant(s) inserted. SIGN OUT No specimen collected. No instruments, equipment or retained foreign bodies applicable. Post-procedure follow-up management communicated and Plan of Care Visit completed when applicable Written Consent Obtained: Written LOT #: [id number] Expiration Date: Month: Year: 2023 Second vial: LOT #: [id number] Expiration Date: Month: Year: 2023 Injection Sites Left (Units) Left (Sites) Right (Units) Right (Sites) TOTAL (Units) Commercial Crabber 5 1 5 1 10 Procerus Units: 5 Sites: 1 5 Frontalis 10 2 10 2 20 Temporalis optional follow the pain 20 10 4 2 20 4 50 Occipitalis optional follow the pain 15 30 3 6 15 5 3 1 65 Cervical PSP 10 2 10 2 20 Trapezius 15 3 15 3 30 Total Units used: 200 Total Units wasted: 0 Patient tolerated procedure well. Prior Therapies Duration of Use Dose Side effect Analgesic Tramadol (Ultram) Anti-Convulsant Divalproex sodium (Depakote) Anti-Depressant and Antipsychotic Desvenlafaxine (Pristiq) Antiemetics Ondansetron Prochlorperazine Anti-Migraine Dihydroergotamine (DHE-45, Migranal) Methylergonovine (Methergine) Naratriptan (Amerge) Sumatriptan (Imitrex, Sumavel) Zolmitriptan (Zomig) Botulinum Toxin Onabotulinum Toxin A (Botox) Muscle Relaxer Baclofen (Lioresal) Tizanidine (Zanaflex) Sleep Aids Trazodone (Desyrel) Supplements Magnesium Over the Counter Medications Acetaminophen (Tylenol) Debranba Ty APRN.CNP documented in this encounter [facility] 12-02-2021 Instructions Debra Ty APRN.CNP - 12/02/2021 10:42 AM EDT AFTER VISIT CARE BOTOX INJECTION While these procedures can be extremely helpful as part of your headache treatment plan, they can irritate the muscles and tissues in your head, neck and shoulders. Proper follow-up care is important to avoid muscle spasms and temporary pain increase within the following 3-5 days after your clinic visit. Here are some tips to help decrease side-effects that may occur and maximize the effectiveness of your pain relief -HYDRATION Hydration is important to help nourish your muscles and tissues. Drink 60-80 oz of non caffeinated fluid at least for 3 days after your visit. -REST Rest will help avoid further irritation of muscle and tissues. Remember that you need to give your body time to adjust. NO strenuous activity for at least the first 24 hours after your visit. Gentle stretching, yoga, meditation or even swimming is OK and encouraged. -ICE/HEAT Since these procedures irritate muscles, there can be some swelling. Alternating ice and heat every 3-5 times per day may help decrease this, while also optimizing pain relief 1. Use cool gel packs for ice for 10 min. 2. Use a warm moist towel covered with a dry towel on neck and shoulders. 3. Alternate stretching each side of the neck. -STRETCHING Slow, gentle stretching of the neck and shoulders once every hour is helpful to avoid muscle spasms. -TREAT MUSCLE SPASMS If you are already prescribed a muscle relaxer such as baclofen, tizanidine or flexeril, use as directed. If you do not have one, talk to your provider to find out if this would be safe for you to use. Do not rub or massage the area for 48-72 hours. -OTHER No hair dyes or permanents for 24 hours. If you are paying out of pocket for Botox go online to Botox Savings Program and see if you qualify for reimbursement. Return in 3 months for your next Botox Injection documented in this encounter [facility] 09-02-2021 Instructions Debra Ty APRN.CNP - 09/02/2021 11:18 AM EDT AFTER VISIT CARE BOTOX INJECTION While these procedures can be extremely helpful as part of your headache treatment plan, they can irritate the muscles and tissues in your head, neck and shoulders. Proper follow-up care is important to avoid muscle spasms and temporary pain increase within the following 3-5 days after your clinic visit. Here are some tips to help decrease side-effects that may occur and maximize the effectiveness of your pain relief -HYDRATION Hydration is important to help nourish your muscles and tissues. Drink 60-80 oz of non caffeinated fluid at least for 3 days after your visit. -REST Rest will help avoid further irritation of muscle and tissues. Remember that you need to give your body time to adjust. NO strenuous activity for at least the first 24 hours after your visit. Gentle stretching, yoga, meditation or even swimming is OK and encouraged. -ICE/HEAT Since these procedures irritate muscles, there can be some swelling. Alternating ice and heat every 3-5 times per day may help decrease this, while also optimizing pain relief 1. Use cool gel packs for ice for 10 min. 2. Use a warm moist towel covered with a dry towel on neck and shoulders. 3. Alternate stretching each side of the neck. -STRETCHING Slow, gentle stretching of the neck and shoulders once every hour is helpful to avoid muscle spasms. -TREAT MUSCLE SPASMS If you are already prescribed a muscle relaxer such as baclofen, tizanidine or flexeril, use as directed. If you do not have one, talk to your provider to find out if this would be safe for you to use. Do not rub or massage the area for 48-72 hours. -OTHER No hair dyes or permanents for 24 hours. If you are paying out of pocket for Botox go online to Botox Savings Program and see if you qualify for reimbursement. Return in 3 months for your next Botox Injection documented in this encounter [facility] 09-02-2021 History of Presen t illness Narrative Follow-Up Onabotulinum Toxin A (BotoxTM) for Migraine Indication: Chronic Intractable Migraine Treatment #: 15 Referral Expiration: 02/18/2022 Prior to the initiation of the FIRST treatment with Onabotulinum Toxin A, the patient reported the following average headache frequency over the past 3 MONTHS: Number of moderate-severe migraine days/month: 16 Number of mild migraine days/month: 5 Number of headache free days/month: 9 (216 headache-free hours) Migraine severity: 12/31 After treatment with Onabotulinum Toxin A: Number of moderate-severe migraine days/month: 4 Number of mild migraine days/month: 1 Number of headache free days/month: 25 (600 headache-free hours) Migraine severity: 08/31 Patient reduction in overall migraine days: Yes Patient reduction in moderate-severe migraine days: Yes Patient reduction of headache hours by 100 hours or more: Yes (reduction of 384 hours) Individual has obtained clinical benefit deemed significant by individual or prescriber (Y/N): Yes Patient's quality of life and ability to perform ADLs has improved (Y/N): Yes Side effects: none Wearing off: Yes - 10 weeks after treatment HEADACHE SCORES: Headache Questions 02/26/2021 05/29/2021 09/01/2021 ER visits since last office visit: 0 0 0 Hospital stays since last office visit 0 0 0 Limited ADLs in the last month: 0 0 1 Time missed from work or school in the last month: 0 0 0 Days headache pain free in the last month: 25 26 25 Days per month with ALL of the following symptoms - decreased productivity, light sensitivity and nausea: 4 0 3 Days per month with non-migraine headache: 1 4 2 Initial improvement of headache after botox injection at last visit: Much improved Much improved Much improved PRN medication usage in the last month: 5 5 6 Patient impression of improvement since last visit: No change No change No change HIT-6 02/26/2021 05/29/2021 09/01/2021 HIT-6 - - - HIT-6 52 (Moderate impact) 46 (Little or no impact) 46 (Little or no impact) LISANDRO - 2/7 SCORES 05/29/2021 05/29/2021 09/01/2021 LISANDRO-2 Score 1 1 1 Migraine Specific QOL - Higher scores indicate better HRQL 08/01/2019 11/05/2019 02/11/2020 Role Function-Restrictive Transformed Score (range: 0-100) 91.42 100 97.14 Role Function-Preventive Transformed Score (range: 0-100) 100 100 100 Emotional Function Transformed Score (range: 0-100) 100 100 100 PHQ-9 05/29/2021 05/29/2021 09/01/2021 Score 7 7 4 BP 99/62 Pulse 91 Ht 171.5 cm (5' 7.5") Wt 64.1 kg (141 lb 6.4 oz) SpO2 97% BMI 21.82 kg/m Patient name: Ligia Hanley : 1960 ALLERGIES Allergen Reactions Flagyl [Metronidazo* Rash Keflex [Cephalexin] Other: See Comments Patient states she had Muscle spasms in back & legs for days Nsaids (Non-Steroid* GI Upset Seasonal Allergies Cough UNIVERSAL PROTOCOL / SAFETY CHECKLIST Procedure to be Performed: Botox Sign In: A Moment of CARE was completed. Personnel directly involved with the procedure wore the appropriate PPE (Personal Protective Equipment). Patient/Surrogate Stated/Verified: PATIENT VERIFIED(optional for EMERGENT procedures): Patient name, Date of , Relevant allergies and The intended procedure Time Out Communication: Intended patient and procedure match the source documents. Consent documented and matches the intended procedure. Sign Out: SIGN OUT (optional for EMERGENT procedures): No specimen collected. Post-procedure follow-up management communicated and Plan of Care Visit completed when applicable. Debra Ty APRN.[facility] UNIVERSAL PROTOCOL / SAFETY CHECKLIST Procedure to be performed: Onabotulinum toxin A injections The risks, benefits and alternatives of the procedure were explained. Written Consent Obtained: yes - 09/02/2021 Sign In Communication: completed Time Out: Time Out Completed. Team Confirms the Correct Patient, Correct Procedure, Correct Site and Site Marking, Correct Position (if applicable), Prep and Dry Time (if applicable). Time: 11:27 EDT Affirmation of Time Out: N/A Sign Out Discussion: completed LOT #: [id number] Expiration Date: Month: 4 Year: 2023 Second vial: LOT #: [id number] Expiration Date: Month: 4 Year: 2023 Injection Sites Left (Units) Left (Sites) Right (Units) Right (Sites) TOTAL (Units) Commercial Crabber 5 1 5 1 10 Procerus Units: 5 Sites: 1 5 Frontalis 10 2 10 2 20 Temporalis optional follow the pain 20 10 4 2 20 4 50 Occipitalis optional follow the pain 15 30 3 6 15 5 3 1 65 Cervical PSP 10 2 10 2 20 Trapezius 15 3 15 3 30 Total Units used: 200 Total Units wasted: 0 Patient tolerated procedure well. Prior Therapies Duration of Use Dose Side effect Analgesic Tramadol (Ultram) Anti-Convulsant Divalproex sodium (Depakote) Anti-Depressant and Antipsychotic Desvenlafaxine (Pristiq) Antiemetics Ondansetron Prochlorperazine Anti-Migraine Dihydroergotamine (DHE-45, Migranal) Methylergonovine (Methergine) Naratriptan (Amerge) Sumatriptan (Imitrex, Sumavel) Zolmitriptan (Zomig) Botulinum Toxin Onabotulinum Toxin A (Botox) Muscle Relaxer Baclofen (Lioresal) Tizanidine (Zanaflex) Sleep Aids Trazodone (Desyrel) Supplements Magnesium Over the Counter Medications Acetaminophen (Tylenol) Debra Ty APRN.DIRECTOR PROJECT MANAGEMENT documented in this encounter [facility] 07-25-2021 Miscellaneous Notes Rec'd call from insurance. The pharmacy was running the 27 pills for 30 days. This should have been 27 for 3 months. We can disregard any faxes or additional information about this Patient can now get this medication with no issues. Received call from [employer] asking we fax over last office visit notes to review in regard to PA. Faxed notes to [phone]. Called number provided, transferred by Jorge Alberto Gudino. PA completed over the phone. Can take 3-15 days to complete. Determination will be faxed once the decision is made. Sammi Portillo LPN Received call from [employer] stating PA needed on Naratriptan. 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 02/11/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 05/13/20042010 documented as of this encounter (statuses as of 10/10/2021) [facility] Narrative* Problem Noted Date Resolved Date 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 02/11/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 05/13/20042010 documented as of this encounter (statuses as of 12/02/2021) [facility] Narrative* Problem Noted Date Resolved Date 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 02/11/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 05/13/20042010 documented as of this encounter (statuses as of 12/10/2021) [facility] Narrative* Problem Noted Date Resolved Date 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 02/11/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 05/13/20042010 documented as of this encounter (statuses as of 12/16/2021) [facility] Narrative* Problem Noted Date Resolved Date 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 02/11/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 05/13/20042010 documented as of this encounter (statuses as of 03/03/2022) [facility] Narrative* Problem Noted Date Resolved Date 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 02/11/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 05/13/20042010 documented as of this encounter (statuses as of 03/12/2022) [facility] Narrative* Problem Noted Date Resolved Date 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 02/11/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 05/13/20042010 documented as of this encounter (statuses as of 05/06/2022) [facility] Narrative* Problem Noted Date Resolved Date 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 02/11/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 05/13/20042010 documented as of this encounter (statuses as of 06/09/2022) [facility] Narrative* Problem Noted Date Resolved Date 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 02/11/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 05/13/20042010 documented as of this encounter (statuses as of 06/09/2022) [facility] Narrative* Problem Noted Date Resolved Date 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 02/11/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 05/13/20042010 documented as of this encounter (statuses as of 07/02/2022) [address]21-2006 History of Past illness Narrative* Problem Noted Date Resolved Date 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 02/11/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 05/13/20042010 documented as of this encounter (statuses as of 07/06/2022) [facility]* Problem Noted Date Resolved Date 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 02/11/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 05/13/20042010 documented as of this encounter (statuses as of 07/14/2022) [facility] Narrative* Problem Noted Date Resolved Date 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 02/11/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 05/13/20042010 documented as of this encounter (statuses as of 07/15/2022) [facility] N[facility]ative* Problem Noted Date Resolved Date 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 02/11/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 05/13/20042010 documented as of this encounter (statuses as of 07/29/2022) [facility] N[facility]ative* Problem Noted Date Resolved Date 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 02/11/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 05/13/20042010 documented as of this encounter (statuses as of 08/07/2022) [facility] N[facility]ative* Problem Noted Date Resolved Date 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 02/11/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 05/13/20042010 documented as of this encounter (statuses as of 09/16/2022) [facility] without aura, intractable, without status migrainosus- Primary [facility] noteNo assessment information availableWVeterans Health Administration Work Phone: Evaluation note* Diagnosis Chronic migraine without aura, intractable, without status migrainosus- [facility]* Diagnosis Chronic migraine without aura, intractable, without status migrainosus- [facility] Diagnosis Onset Date Resolution Status Facial asymmetry acute Facial skin atrophy acute Skin aging acute Dermatochalasis of left lower eyelid chronic Dermatochalasis of right lower eyelid chronic Elective procedure for unacceptable cosmetic appearanc e chronic Laxity of eyelid chronic 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 Work Phone: History of Present illness NarrativePatient identified by name & . Patient wore a mask during treatment d/t Covid-19 precautions. Treatment consisted of ther ex's for left ankle and toe strengthening and ROM. Progressed treatment today with addition of all ex's done today added to HEP. Patient performed ex's with good technique and only slight increase in pain at end of treatment. [facility] Work Phone: History of Present illness NarrativePatient identified by name and date of . Added SLS this date with shoe off this date she demonstrated moderate sway and intermittent finger touch down. She demonstrated good tolerance to treatment with no increased Sx after. [facility] Work Phone: Reason for referral (narrative)No reason for referral information availableWVeterans Health Administration Work Phone: Summary Purpose Family History No Family History Records Found Relationship Condition Age at Onset Recorded Date/T cary Unknown Family History?- Unknown July 24, 2014 8:06pm Family History?- Unknown July 24, 2014 8:06pm Relationship Condition Age at Onset Recorded Date/T cary mother Disorder of thyroid Unknown Hypertension Unknown Cardiac disease Unknown Osteoporosis Unknown Osteoarthritis Unknown Anxiety Unknown Hyperlipidemia Unknown grandmother Malignant neoplasm of breast Unknown father Osteoporosis Unknown Advance Directives No Advanced Directives Records Found Advance Directive Response Recorded Date/ Time Advance Directives Yes July 24 7:05pm Living Will Yes May 08, 021 10:52am Power of Band Top Maker Yes May 08, 2021 10:52am Advance Directive Response Recorded Date/ Time Advance Directives Yes January 19, 2023 11:57am Living Will Yes January 19 11:57am Power of Band Top Maker Yes January 19 023 11:57am Advance Directive Response Recorded Date/ Time Advance Directives Yes January 19, 2023 11:57am Medications Administered Section Inactive Administered Medications - up to 3 most recent administrations Medication Order MAR Action Action Date Dose Rate Site onabotulinum toxin type A 200 Units injection (BOTOX) 200 Units, OTHER, ONCE, 1 dose, On Wed09/02/21 at 1130, This record documents the total dose provided to patient. See progress note for specific locations and amounts administered. REFRIGERATE - Pharmaceutical Waste: Lab Pack - Given 09/02/2021 11:41 AM EDT 200 Units Inactive Administered Medications - up to 3 most recent administrations Medication Order MAR Action Action Date Dose Rate Site onabotulinum toxin type A 200 Units injection (BOTOX) 200 Units, OTHER, ONCE, 1 dose, On Wed12/02/21 at 1100, This record documents the total dose provided to patient. See progress note for specific locations and amounts administered. REFRIGERATE - Pharmaceutical Waste: Lab Pack - Given 12/02/2021 11:14 AM EDT 200 Units Inactive Administered Medications - up to 3 most recent administrations Medication Order MAR Action Action Date Dose Rate Site onabotulinum toxin type A 200 Units injection (BOTOX) 200 Units, OTHER, ONCE, 1 dose, On Wed03/03/22 at 1430, This record documents the total dose provided to patient. See progress note for specific locations and amounts administered. REFRIGERATE - Pharmaceutical Waste: Lab Pack - Given 03/03/2022 3:01 PM EDT 200 Units Inactive Administered Medications - up to 3 most recent administrations Medication Order MAR Action Action Date Dose Rate Site onabotulinum toxin type A 200 Units injection (BOTOX) 200 Units, OTHER, ONCE, 1 dose, On Wed06/09/22 at 1430, This record documents the total dose provided to patient. See progress note for specific locations and amounts administered. REFRIGERATE - Pharmaceutical Waste: Lab Pack - Given 06/09/2022 2:51 PM EST 200 Units Inactive Administered Medications - up to 3 most recent administrations Medication Order MAR Action Action Date Dose Rate Site onabotulinum toxin type A 200 Units injection (BOTOX) 200 Units, OTHER, ONCE, 1 dose, On Wed09/15/22 at 1500, This record documents the total dose provided to patient. See progress note for specific locations and amounts administered. REFRIGERATE - Pharmaceutical Waste: Lab Pack - Given 09/15/2022 3:32 PM EDT 200 Units Chief Complaint and Reason for Visit Chief Complaint SCREENING Chief Complaint NECK PAIN/ BACK PAIN Chief Complaint Blepharoplasty LASER Reason for Visit Facial asymmetry Facial skin atrophy Skin aging Dermatochalasis of left lower eyelid Dermatochalasis of right lower eyelid Elective procedure for unacceptable cosmetic appearance Laxity of eyelid 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 Prominent tear trough Thinning of skin Chief Complaint Blepharoplasty LASER PT DOES NOT WANT LASER NOW. WANTS SURGERY SCREENING Reason for Visit Facial asymmetry Facial skin atrophy Skin aging Dermatochalasis of left lower eyelid Dermatochalasis of right lower eyelid Elective procedure for unacceptable cosmetic appearance Laxity of eyelid 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 Prominent tear trough Thinning of skin Facial skin atrophy Skin aging Additional Source Comments INFORMATION SOURCE (unrecogn ized section and content) DATE CREATED AUTHOR 11/11/2017 [facility] DATE CREATED AUTHOR AUTHOR'S ORGANIZ ATION 03/05/2021 [facility] DATE CREATED AUTHOR AUTHOR'S ORGANIZ ATION 03/07/2021 [facility] DATE CREATED AUTHOR AUTHOR'S ORGANIZ ATION 12/24/2021 [facility] DATE CREATED AUTHOR AUTHOR'S ORGANIZ ATION 09/17/2022 [facility] DATE CREATED AUTHOR AUTHOR'S ORGANIZ ATION 06/11/2024 [facility] DATE CREATED AUTHOR AUTHOR'S ORGANIZ ATION 03/28/2025 [facility] Source Comments (unrecognize d section and content) In the event this informatio n is protected by the Federal Confidentiality of Alcohol and Drug Abuse Patient Records regulations: The Federal rules restrict any use of the information to criminally investigate or prosecute any alcohol or drug abuse patient.[facility] the event this information is protected by the Federal Confidentiality of Alcohol and Drug Abuse Patient Records regulations: The Federal rules restrict any use of the information to criminally investigate or prosecute any alcohol or drug abuse patient.[facility] Center[facility] the event this information is protected by the Federal Confidentiality of Alcohol and Drug Abuse Patient Records regulations: The Federal rules restrict any use of the information to criminally investigate or prosecute any alcohol or drug abuse patient.[facility] the event this information is protected by the Federal Confidentiality of Alcohol and Drug Abuse Patient Records regulations: The Federal rules restrict any use of the information to criminally investigate or prosecute any alcohol or drug abuse patient.[facility] Center[facility] the event this information is protected by the Federal Confidentiality of Alcohol and Drug Abuse Patient Records regulations: The Federal rules restrict any use of the information to criminally investigate or prosecute any alcohol or drug abuse patient.[facility] Center[facility] the event this information is protected by the Federal Confidentiality of Alcohol and Drug Abuse Patient Records regulations: The Federal rules restrict any use of the information to criminally investigate or prosecute any alcohol or drug abuse patient.[facility] Center[facility] the event this information is protected by the Federal Confidentiality of Alcohol and Drug Abuse Patient Records regulations: The Federal rules restrict any use of the information to criminally investigate or prosecute any alcohol or drug abuse patient.[facility] Center[facility] the event this information is protected by the Federal Confidentiality of Alcohol and Drug Abuse Patient Records regulations: The Federal rules restrict any use of the information to criminally investigate or prosecute any alcohol or drug abuse patient.[facility] Center[facility] the event this information is protected by the Federal Confidentiality of Alcohol and Drug Abuse Patient Records regulations: The Federal rules restrict any use of the information to criminally investigate or prosecute any alcohol or drug abuse patient.[facility] Center[facility] the event this information is protected by the Federal Confidentiality of Alcohol and Drug Abuse Patient Records regulations: The Federal rules restrict any use of the information to criminally investigate or prosecute any alcohol or drug abuse patient.[facility] Center[facility] the event this information is protected by the Federal Confidentiality of Alcohol and Drug Abuse Patient Records regulations: The Federal rules restrict any use of the information to criminally investigate or prosecute any alcohol or drug abuse patient.[facility] Center[facility] the event this information is protected by the Federal Confidentiality of Alcohol and Drug Abuse Patient Records regulations: The Federal rules restrict any use of the information to criminally investigate or prosecute any alcohol or drug abuse patient.[facility] Center[facility] the event this information is protected by the Federal Confidentiality of Alcohol and Drug Abuse Patient Records regulations: The Federal rules restrict any use of the information to criminally investigate or prosecute any alcohol or drug abuse patient.[facility] Center[facility] the event this information is protected by the Federal Confidentiality of Alcohol and Drug Abuse Patient Records regulations: The Federal rules restrict any use of the information to criminally investigate or prosecute any alcohol or drug abuse patient.[facility] Center[facility] the event this information is protected by the Federal Confidentiality of Alcohol and Drug Abuse Patient Records regulations: The Federal rules restrict any use of the information to criminally investigate or prosecute any alcohol or drug abuse patient.[facility] CenterIn the event this information is protected by the Federal Confidentiality of Alcohol and Drug Abuse Patient Records regulations: The Federal rules restrict any use of the information to criminally investigate or prosecute any alcohol or drug abuse patient.[facility] CenterIn the event this information is protected by the Federal Confidentiality of Alcohol and Drug Abuse Patient Records regulations: The Federal rules restrict any use of the information to criminally investigate or prosecute any alcohol or drug abuse patient.[facility] Reason for Visit (unrecogniz ed section and content) Reason Comments Neurotoxin Injection Specialty Diagnoses / Procedures Referred By Contac t Referred To Contact HEADACHE Diagnoses Chronic migraine without aura, intractable, without status migrainosus Procedures BOTULINUM TOXIN A PER 1 UNIT Botox reneal due 01/20/2021 200 units every 90 days x 1 year preempt protocol J0585 buy and bill procedure [id number] Debra Ty, XANDER.DIRECTOR PROJECT MANAGEMENT [address] [place] [address] Neur Headache Main [address] [id number] Referral ID Status Reason Start Date Expiration Date V isits Requested Visits Authorized [id number] Authorized 02/19/2021 02/18/2022 5 5 Reason Comments Insurance Authorization Naratriptan Reason Comments Insurance Authorization Nurte Reason Onset Date Comments Refill Request 12/16/2021 Specialty Diagnoses / Procedures Referred By Contac t Referred To Contact HEADACHE Diagnoses Chronic migraine without aura, intractable, without status migrainosus Procedures BOTULINUM TOXIN A PER 1 UNIT CHEMODERVATE FACIAL/TRIGEM/CERV MUSC MIGRAINE renewal due 02/02/2022 Botox 200 units every 12 weeks for 1 year through [facility] buy and bill Preempt protocol J0585 Procedure -[id number] chemodervate facial/trigem/cerv musc migraine Debra Ty, VP TALENT MANAGEMENT.DIRECTOR PROJECT MANAGEMENT [address] [place] [address] Neur Headache Main [address] [place] [address] Referral ID Status Reason Start Date Expiration Date V isits Requested Visits Authorized [id number] Authorized 03/03/2022 03/02/2023 5 5 Reason Comments Insurance Authorization ondansetron (ZOF RAN) 8 mg tablet Reason Comments Refill Request Reason Comments Botox Injection Specialty Diagnoses / Procedures Referred By Mikaela valadez Referred To Contact HEADACHE Diagnoses Chronic migraine without aura, intractable, without status migrainosus Procedures BOTULINUM TOXIN A PER 1 UNIT CHEMODERVATE FACIAL/TRIGEM/CERV MUSC MIGRAINE renewal due 02/02/2022 Botox 200 units every 12 weeks for 1 year through [facility] buy and bill Preempt protocol J0585 Procedure -[id number] chemodervate facial/trigem/cerv musc migraine Debra Ty, VP TALENT MANAGEMENT.DIRECTOR PROJECT MANAGEMENT [address] [place] [address] Neur Headache Main [address] [id number] Reason Onset Date Comments Refill Request 07/06/2022 Reason Comments Symptoms Headache Reason Onset Date Comments Refill Request 07/14/2022 Care Teams (unrecognized sec tion and content) Personnel Psychologist Relationship Specialty Start Date End Date Micaela Pelayo DO PCP - General Family Practice 10/15/15 Personnel Psychologist Relationship Specialty Start Date End Date Micaela Pelayo DO PCP - General Family Practice 10/15/15 Personnel Psychologist Relationship Specialty Start Date End Date Micaela Pelayo DO PCP - General Family Practice 10/15/15 Personnel Psychologist Relationship Specialty Start Date End Date Micaela Pelayo, DO PCP - General Family Practice 10/15/15 Personnel Psychologist Relationship Specialty Start Date End Date Micaela Pelayo, DO PCP - General Family Medicine 10/15/15 Personnel Psychologist Relationship Specialty Start Date End Date Micaela Pelayo, DO PCP - General Family Medicine 10/15/15 Personnel Psychologist Relationship Specialty Start Date End Date Micaela Pelayo, DO PCP - General Family Medicine 10/15/15 Personnel Psychologist Relationship Specialty Start Date End Date Micaela Pelayo, DO PCP - General Family Medicine 10/15/15 Personnel Psychologist Relationship Specialty Start Date End Date Micaela Pelayo, DO PCP - General Family Medicine 10/15/15 Personnel Psychologist Relationship Specialty Start Date End Date Micaela Pelayo, DO PCP - General Family Medicine 10/15/15 Personnel Psychologist Relationship Specialty Start Date End Date Micaela Pelayo, DO PCP - General Family Medicine 10/15/15 Personnel Psychologist Relationship Specialty Start Date End Date Micaela Pelayo, DO PCP - General Family Medicine 10/15/15 Personnel Psychologist Relationship Specialty Start Date End Date Micaela Pelayo, DO PCP - General Family Medicine 10/15/15 Personnel Psychologist Relationship Specialty Start Date End Date Micaela Pelayo DO PCP - General Family Medicine 10/15/15 Team Status: Active Member Role Status Dates Dr. Micaela Pelayo DO Family Provider Active Dr. Micaela Pelayo DO Primary Care Provider Active Team Status: Inactive Member Role Status Dates Dr. Micaela Pelayo DO Primary Care Prov ider, Attending Provider, Referring Provider Active Team Status: Inactive Member Role Status Dates Dr. Micaela Pelayo DO Primary Care Provider Active Dr. Tim Harrison DO Attending Provider Active Team Status: Active Member Role Status Dates Dr. Micaela Pelayo DO Primary Care Provider Active Dr. Tim Harrison DO Attending Provider, Referring Provider Active Team Status: Inactive Member Role Status Dates Dr. Micaela Pelayo DO Primary Care Provider Active Dr. Tim Harrison DO Attending Provider, Referring Provider Active Team Status: Inactive Member Role Status Dates Dr. Micaela Pelayo DO Primary Care Provider, Referrin g Provider Active Dr. Nikky Abbott MD Attending Provider Active Team Status: Inactive Member Role Status Dates Dr. Micaela Pelayo DO Primary Care Provider, Referrin g Provider Active Dr. Gary Doyle MD Attending Provider Active Team Status: Active Member Role/Relationship Status Dates Dr. Micaela Pelayo DO Family Provider Active Dr. Micaela Pelayo DO Primary Care Provider Active Team Status: Inactive Member Role/Relationship Status Dates Dr. Micaela Pelayo DO Primary Care Provider Active Start: December 06, 2024 End: December 06, 2024 NITA REYES Attending Provider Active Start: December 06, 2024 End: December 06, 2024 NITA REYES Referring Provider Active Start: December 06, 2024 End: December 06, 2024 Goals (unrecognized section and content) Goals may be documented in a n alternate sectionGoals may be documented in an alternate sectionGoals may be documented in an alternate sectionGoals may be documented in an alternate sectionGoals may be documented in an alternate sectionGoals may be documented in an alternate section FOR RECORDS PERTAINING TO PATIENTS WHO ARE OR HAVE BEEN ENROLLED IN A CHEMICAL DEPENDENCY/SUBSTANCEABUSE PROGRAM, SOME INFORMATION MAY BE OMITTED. This clinical summary was aggregated from multiple sources. Caution should be exercised in using it in the provision of clinical care. This summary normalizes information from multiple sources, and as a consequence, information in this document may materially change the coding, format and clinical context of patient data. In addition, data may be omitted in some cases. CLINICAL DECISIONS SHOULD BE BASED ON THE PRIMARY CLINICAL RECORDS. [employer] [facility]. provides no warranty or guarantee of the accuracy or completeness of information in this document.
[2025-04-26] MEDS: Lactated Ringers 1,000 ML 15 ML IV (07:34)
--- NOTE | 2025-04-26 07:47 | PRE.ANES_ITS ---
ASA Classification* ASA Classification ASA Classification: 2 Assessment & Plan Anesthesia* Anesthesia Assessment Anesthesia Assessment: Discussed sedation and/or anesthesia options, risks, benefits, and alternatives with patient/parents/legal guardian/POA. Questions invited. The patient/parents/legal guardian/POA seems to understand and agrees to proceed with anesthesia plan. Reviewed the physical assessment, medical history, allergy history and patient home medications list prior to surgery/procedure/anesthetic and documented any changes. Performed airway and anesthesia risk assessments. Anesthesia Type Anesthesia Type: MAC History Source History Obtained from:: Patient and Chart Anesthesia Focused Assessment* Temperature: 98.3 F Pulse Rate: 72 Blood Pressure: 109/64 Respiratory Rate: 16 Pulse Ox: 98 Oxygen Delivery Method: Room Air Airway Assessment Mouth opens: >3 cm Mallampati Score: I Teeth Condition: Intact Neck Range of motion (ROM): Full ROM Labs Anesthesia Preop lab: CBC WBC, (4.4-11.0) 5.6 K/mm3 05/08/21, 10:00 RBC, (4.2-5.4) 4.70 M/mm3 05/08/21, 10:00 Hgb, (12.0-15.0) 13.9 g/dL 05/08/21, 10:00 Hct, (37-47) 42.6 % 05/08/21, 10:00 Plt Count, (150-450) 194 K/mm3 05/08/21, 10:00 CHEMISTRY Potassium, (3.3-5.1) 4.2 mmol/L 12/06/24, 15:57 Sodium, (133-145) 138 mmol/L 12/06/24, 15:57 Magnesium, (1.5-2.2) 2.3 mg/dL H 12/06/24, 15:57 Phosphorus, (2.5-4.9) 4.2 mg/dL 07/25/14, 05:00 BUN, (4-19) 18 mg/dL 12/06/24, 15:57 Creatinine, (0.70-1.20) 0.91 mg/dL 12/06/24, 15:57 Glucose, (70-99) 92 mg/dL 12/06/24, 15:57 TSH, (0.300-4.200) 1.410 uIU/mL 12/06/24, 15:57 COAG PT, (11.7-14.9) 13.9 SECONDS 07/25/14, 05:00 Pre-Assessment Diagnosis/Proposed Procedure Planned Operative Procedure(s): COLONOSCOPY Anesthesia History 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 When Was Last Pacemaker Check QUESTION #4 FULL TEXT: You/Your Family Experience fever (hyperthermia) with Anesthesia Last Oral Intake Last Oral intake: Last Oral Intake NPO since Meds taken in AM with sips of water? Meds patient instructed to take am of surgery PONV PONV - nut sorter operator: PONV - nut sorter operator Female Yes 04/23/25 11:25 HX of Motion Sickness No 04/23/25 11:25 HX of N/V After Surgery No 04/23/25 11:25 Non-Smoker Yes 04/23/25 11:25 Duration of Surgery greater No 04/23/25 11:25 than 60 minutes Number of Risk Factors 2 04/23/25 11:25 PONV Score Moderate Risk 04/23/25 11:25 Height & Weight Height & Weight: Anesthesia: Height & Weight Height 5 ft 8 in 04/26/25 07:20 Weight: 69.8 kg 04/26/25 07:20 Body Mass Index (BMI) 23.3 04/26/25 07:20 Respiratory Assessment Respiratory Assessment - nut sorter operator: Respiratory Tract Infection Hx - nut sorter operator Hx Respiratory Tract Infection No 04/23/25 11:25 STOP Sleep Apnea STOP Sleep Apnea - nut sorter operator: STOP Sleep Apnea - nut sorter operator Hx Hypertension No 04/23/25 11:25 Hx Sleep Apnea No 04/23/25 11:25 CPAP No 01/19/23 11:57 BIPAP No 01/19/23 11:57 Do you snore loudly (louder No 04/23/25 11:25 than talking or can be heard Do you often feel tired/ No 04/23/25 11:25 fatigued/ sleepy during daytime? Has anyone observed you stop No 04/23/25 11:25 breathing during sleep? STOP Results Negative 04/23/25 11:25 QUESTION #5 FULL TEXT : Do you snore loudly (louder than talking or can be heard through closed doors)? 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 Specify any problems Hx of Preganancy in last 3 No 04/23/25 11:25 Months Nurse Filling Out Transfusion [id number] 04/23/25 11:25 & Questions: Date: 04/23/25 04/23/25 11:25 Time: 11:26 04/23/25 11:25 Patient unable to answer at this time (ie. confused, unrespo /Reproduction History /Reproductive History - nut sorter operator: /Reproductive Hx- nut sorter operator Hx Now Gestational Age (in weeks): EDC: Hx Hx Para Hx Section SAB Does the father of the baby or his family experience fever w Father of the baby Malignant Hypertension history comment Active Medications Active Medications: Current Medications Generic Name Dose Route Start Last Admin Trade Name Freq PRN Reason Stop Dose Admin Lactated Ringer's 1,000 mls @ 15 mls/hr 04/26/25 07:15 04/26/25 07:34 IV 15 mls/hr .Q48H RENATO Administration PFSH Medical History History of Holter monitoring History of echocardiogram Alcohol use Wears glasses Cancer History of steroid therapy Back pain History of ulceration Heartburn Leg cramps Foraminal stenosis of lumbar region Lumbar degenerative disc disease Low bone density Sacral lesion Lumbar radiculopathy Elective procedure for unacceptable cosmetic appearance Prominent tear trough Thinning of skin Laxity of eyelid 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 Dermatochalasis of left lower eyelid Dermatochalasis of right lower eyelid History of basal cell carcinoma (BCC) of skin Environmental allergies Hypothyroidism Osteoporosis Migraine Narcolepsy History of non-Hodgkin's lymphoma Spinal stenosis Home Medications Medication Instructions Recorded Last Taken Type ascorbic acid (vitamin C) 500 mg 1,000 mg PO DAILY@080 0 09/29/13 07/17/14 History tablet (Vitamin C) cholecalciferol (vitamin D3) 50 4,000 unit PO DAILY 07/17/14 History mcg (2,000 unit) tablet (Vitamin D3) magnesium 250 mg tablet 500 mg PO DAILY 09/29/13 History naratriptan 2.5 mg tablet (Amerge) 2.5 mg PO PRN PRN H eadache 09/29/13 07/22/14 History ondansetron HCl 8 mg tablet 8 mg PO Q8H PRN PRN Nausea 09/29/13 07/21/14 History levothyroxine 50 mcg tablet 50 mcg PO DAILY 07/24/14 1 06/27/24 05:00 History dextroamphetamine-amphetamine 10 10 mg PO DAILY PRN na rcolepsy 05/05/21 Unknown History mg tablet (Adderall) ropinirole 0.5 mg tablet 0.5 mg PO QHS 05/05/21 Unkno wn History tramadol 50 mg tablet 50 mg PO BID PRN Pain Unknown History acetylcarnitine HCl 250 mg capsule 250 mg PO DAILY Unknown History acetylcysteine 600 mg capsule (NAC) 600 mg PO DAILY Unknown History fremanezumab-vfrm 225 mg/1.5 mL 225 mg subcut QMONTH 0 01/19/23 Unknown History subcutaneous auto-injector (Ajovy) omega 3-lmh-rik-fish oil 1,200 mg 1 cap PO DAILY 01/1904/21/25 History (144 mg-216 mg) capsule (Fish Oil) quercetin 500 mg capsule 1,000 mg PO DAILY 01/19/23 U nknown History turmeric (bulk) 95 % powder 1 ea miscellaneous DAILY 0 01/19/23 Unknown History (Curcumin) vitamin B complex 1 cap PO DAILY 01/19/23 Unkn own History vitamin K2 100 mcg capsule 100 mcg PO DAILY 01/19/23 U nknown History zinc acetate 50 mg (zinc) capsule 50 mg PO DAILY 01/19 Unknown History zolmitriptan 5 mg nasal spray 1 spray intranasal ONCE PRN 01/19/23 Unknown History headache tizanidine 2 mg tablet 2 mg PO BID PRN muscle spast icity 04/13/25 Unknown History trazodone 50 mg tablet 50 mg PO QDAY 04/13/25 Unkno wn History Allergy/AdvReac Type Severity Reaction Status Date / Time cephalexin Allergy Severe muscle Verified 04/26/25 07:20 spasms metronidazole (From Flagyl) Allergy Rash Verified 04/26/25 07:20 NSAIDS (Non-Steroidal AdvReac Other Verified 04/26/25 07:20 Anti-Inflamma Family History Mother Thyroid disorder Hypertension Heart disease Osteoporosis Osteoarthritis Anxiety Hyperlipidemia Grandmother Breast cancer Father Osteoporosis Osteoarthritis Surgical History Hx of lymph node excision History of back surgery History of foot surgery History of tonsillectomy and adenoidectomy History of appendectomy History of ear surgery History of sinus surgery History of partial hysterectomy History of hemorrhoidectomy (~2014) Social History Smoking Status: Never smoker alcohol intake: current substance use type: does not use Review of Systems (Anesthesia) ROS Narrative System reviewed and no additional complaints, except as documented.
--- NOTE | 2025-04-26 08:00 | COLBX_PTH ---
PATIENT: LIGIA HANLEY LOC: EN U#:[id number] AGE/SX: 64/F ROOM: RE04/26/[address]: Dr. Geraldo Corona DO : 1960 BED: DIS: 04/26/2025 SPEC #: [id number] RECD: 04/26/25 09:34 STATUS: GABI ROSSI #: [id number] MEGHAN: 04/26/25 08:[address]: Geraldo Corona DEPT: SURGICAL PATHOLOGY RECD BY: Rae Peña ENTERED: 04/26/25 13:44 SP TYPE: COLON BX OTHR DR: Dr. Armando Pelayo DO Tissues: Rectum, NOS Procedures: Surgery Specimen Level IV HEADER OPERATION: Colonoscopy - open access, polypectomy PRE-OP DIAGNOSIS: Encounter for screening colonoscopy TISSUE SUBMITTED: A. Rectal polyp MICROSCOPIC DIAGNOSIS A. Rectum, polyp, biopsy: - Tubular adenoma MICROSCOPIC DESCRIPTION Slides are reviewed. GROSS DESCRIPTION A. Received in fixative is one container labeled with the patient's name and designated "Rectal polyp." The specimen consists an irregular fragment of katz tissue that measures 0.5 cm. The specimen is totally submitted in one cassette. AK 04/26/2025 CPT:[id number]
--- NOTE | 2025-04-26 08:17 | PCM.HP.STD ---
HPI - General General Date of Admission: 04/26/25 Date of Service: 04/26/25 Chief Complaint: Screening colonoscopy HPI Narrative LIGIA HANLEY, is a 64 F who presents [today for screening colonoscopy. She had a colonoscopy approximately 10 years ago and it was normal. She did not have any abdominal pain, cramping, chest pain or shortness of breath.] [facility] Medical History History of Holter monitoring History of echocardiogram Alcohol use Wears glasses Cancer History of steroid therapy Back pain History of ulceration Heartburn Leg cramps Foraminal stenosis of lumbar region Lumbar degenerative disc disease Low bone density Sacral lesion Lumbar radiculopathy Elective procedure for unacceptable cosmetic appearance Prominent tear trough Thinning of skin Laxity of eyelid 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 Dermatochalasis of left lower eyelid Dermatochalasis of right lower eyelid History of basal cell carcinoma (BCC) of skin Environmental allergies Hypothyroidism Osteoporosis Migraine Narcolepsy History of non-Hodgkin's lymphoma Spinal stenosis Home Medications Medication Instructions Recorded Last Taken Type ascorbic acid (vitamin C) 500 mg 1,000 mg PO DAILY@0800 09/29/13 07/17/14 History tablet (Vitamin C) cholecalciferol (vitamin D3) 50 4,000 unit PO DAILY 09/29/13 07/17/14 History mcg (2,000 unit) tablet (Vitamin D3) magnesium 250 mg tablet 500 mg PO DAILY 09/29/13 07/17/14 History naratriptan 2.5 mg tablet (Amerge) 2.5 mg PO PRN PRN Headache 09/29/13 07/22/14 History ondansetron HCl 8 mg tablet 8 mg PO Q8H PRN PRN Nausea 09/29/13 07/21/14 History levothyroxine 50 mcg tablet 50 mcg PO DAILY 07/24/14 04/26/25 05:00 History dextroamphetamine-amphetamine 10 10 mg PO DAILY PRN narcolepsy 05/05/21 Unknown History mg tablet (Adderall) ropinirole 0.5 mg tablet 0.5 mg PO QHS 05/05/21 Unknown History tramadol 50 mg tablet 50 mg PO BID PRN Pain 05/05/21 Unknown History acetylcarnitine HCl 250 mg capsule 250 mg PO DAILY 01/19/23 Unknown History acetylcysteine 600 mg capsule (NAC) 600 mg PO DAILY 01/19/23 Unknown History fremanezumab-vfrm 225 mg/1.5 mL 225 mg subcut QMONTH 01/19/23 Unknown History subcutaneous auto-injector (Ajovy) omega 7-wbi-kib-fish oil 1,200 mg 1 cap PO DAILY 01/19/23 04/21/25 History (144 mg-216 mg) capsule (Fish Oil) quercetin 500 mg capsule 1,000 mg PO DAILY 01/19/23 Unknown History turmeric (bulk) 95 % powder 1 ea miscellaneous DAILY 01/19/23 Unknown History (Curcumin) vitamin B complex 1 cap PO DAILY 01/19/23 Unknown History vitamin K2 100 mcg capsule 100 mcg PO DAILY 01/19/23 Unknown History zinc acetate 50 mg (zinc) capsule 50 mg PO DAILY 01/19/23 Unknown History zolmitriptan 5 mg nasal spray 1 spray intranasal ONCE PRN 01/19/23 Unknown History headache tizanidine 2 mg tablet 2 mg PO BID PRN muscle spasticity 04/13/25 Unknown History trazodone 50 mg tablet 50 mg PO QDAY 04/13/25 Unknown History Allergy/AdvReac Type Severity Reaction Status Date / Time cephalexin Allergy Severe muscle Verified 04/26/25 07:20 spasms metronidazole (From Flagyl) Allergy Rash Verified 04/26/25 07:20 NSAIDS (Non-Steroidal AdvReac Other Verified 04/26/25 07:20 Anti-Inflamma Family History Mother Thyroid disorder Hypertension Heart disease Osteoporosis Osteoarthritis Anxiety Hyperlipidemia Grandmother Breast cancer Father Osteoporosis Osteoarthritis Surgical History Hx of lymph node excision History of back surgery History of foot surgery History of tonsillectomy and adenoidectomy History of appendectomy History of ear surgery History of sinus surgery History of partial hysterectomy History of hemorrhoidectomy (~2014) Social History Smoking Status: Never smoker alcohol intake: current substance use type: does not use ROS Constitutional Constitutional: Denies fatigue, fever(s), poor appetite, weight gain or weight loss Gastrointestinal Gastrointestinal: Denies belching, bloating, change in bowel habits, change in stool character, chewing difficulty, coffee ground emesis, constipation, cramping, diarrhea, dyspepsia, dysphagia, early satiety, excessive flatus, fecal incontinence, heartburn, hematemesis, hematochezia, hemorrhoids, loose stools, melena, nausea, odynophagia, rectal bleeding, tenesmus, vomiting or weight changes Vital Signs Vital Signs Vital Signs: 04/26/25 07:20 04/26/25 07:20 04/26/25 07:20 Temperature 98.3 F Temperature Source Temporal Pulse Rate 72 Respiratory Rate 16 Respiratory Pattern Normal Blood Pressure 109/64 Blood Pressure Mean 79 Blood Pressure Source Monitor Blood Pressure Position Sitting Blood Pressure Location Left Arm Baseline BP 109/64 Pulse Ox 98 Oxygen Delivery Method Room Air 04/26/25 07:50 Temperature 98.3 F Temperature Source Pulse Rate 72 Respiratory Rate 16 Respiratory Pattern Blood Pressure 109/64 Blood Pressure Mean Blood Pressure Source Blood Pressure Position Blood Pressure Location Baseline BP Pulse Ox 98 Oxygen Delivery Method Room Air Weight Weight: 153 lb 14.122 oz Body Mass Index (BMI) 23.3 Physical Exam Const alert, oriented x3, no apparent distress and healthy appearing General Appearance: cooperative GI normal to inspection, nondistended, normoactive bowel sounds, soft to palpation, non-tender and non-distended Percussion: normal to percussion Rectal Exam: deferred Assessment & Plan Assessment/Plan (1) Encounter for screening colonoscopy: PLAN: She was explained alternatives, risk and benefits include not withstanding bleeding, infection, sepsis, perforation, need for emergency urgent . She will have an ASA of 3.
--- NOTE | 2025-04-26 09:01 | OP.COLON_ITS ---
Patient Name: Lisa Roper Procedure Date: 04/26/2025 8:25 AM Date of : 1960 Age: 64 Procedure: Colonoscopy Indications: Screening for colorectal malignant neoplasm Providers: Geraldo Corona DO Referring MD: Armando Pelayo Medicines: Monitored Anesthesia Care Patient Profile: This is a 64 year old female. Refer to note in patient chart for documentation of history and physical. Last Colonoscopy: more than 10 years ago. Complications: No immediate complications. Procedure: Pre-Anesthesia Assessment: - Prior to the procedure, a History and Physical was performed, and patient medications and allergies were reviewed. The patient is competent. The risks and benefits of the procedure and the sedation options and risks were discussed with the patient. All questions were answered and informed consent was obtained. Patient identification and proposed procedure were verified by the physician in the pre-procedure area. Mental Status Examination: alert and oriented. Airway Examination: normal oropharyngeal airway and neck mobility. Respiratory Examination: clear to auscultation. CV Examination: normal. Prophylactic Antibiotics: The patient does not require prophylactic antibiotics. Prior Anticoagulants: The patient has taken no anticoagulant or antiplatelet agents. ASA Grade Assessment: II - A patient with mild systemic disease. After reviewing the risks and benefits, the patient was deemed in satisfactory condition to undergo the procedure. The anesthesia plan was to use monitored anesthesia care (MAC). Immediately prior to administration of medications, the patient was re-assessed for adequacy to receive sedatives. The heart rate, respiratory rate, oxygen saturations, blood pressure, adequacy of pulmonary ventilation, and response to care were monitored throughout the procedure. The physical status of the patient was re-assessed after the procedure. After I obtained informed consent, the scope was passed under direct vision. Throughout the procedure, the patient's blood pressure, pulse, and oxygen saturations were monitored continuously. The Colonoscope was introduced through the anus and advanced to the cecum, identified by appendiceal orifice and ileocecal valve. The colonoscopy was performed without difficulty. The patient tolerated the procedure well. The quality of the bowel preparation was adequate. The ileocecal valve, appendiceal orifice, and rectum were photographed. Scope In: 8:34:30 AM Scope Withdrawal Time 0 hours 8 minutes 31 seconds Scope Out: 8:52:59 AM Total Procedure Duration Time 0 hours 18 minutes 29 seconds Findings: The perianal and digital rectal examinations were normal. A 13 mm polyp was found in the rectum. The polyp was sessile. The polyp was removed with a hot snare. Resection and retrieval were complete. Verification of patient identification for the specimen was done. Estimated blood loss was minimal. Impression: - One 13 mm polyp in the rectum, removed with a hot snare. Resected and retrieved. Recommendation: - Repeat colonoscopy in 5 years for surveillance. - Continue present medications. Procedure Code(s): --- Professional --- 44953, Colonoscopy, flexible; with removal of tumor(s), polyp(s), or other lesion(s) by snare technique CPT copyright 2021 [employer]. All rights reserved. The codes documented in this report are preliminary and upon plane runner review may be revised to meet current compliance requirements. Geraldo Corona DO 04/26/2025 9:00:53 AM This report has been signed electronically. Number of Addenda: 0 Note Initiated On: 04/26/2025 8:25 AM
--- NOTE | 2025-04-26 09:01 | OP.PROVAT_ITS ---
04/26/2025 Armando Pelayo [address] [place] [address] Re : Colonoscopy procedure for Lisa Roper Dear Dr. Pelayo This procedure was performed on April. My impressions and recommendations are as follows: Impressions : - One 13 mm polyp in the rectum, removed with a hot snare. Resected and retrieved. Recommendations : - Repeat colonoscopy in 5 years for surveillance. - Continue present medications. My findings are described in the full procedure note, which is enclosed. If I can be of further assistance, please feel free to contact me at . Sincerely, Geraldo Corona, 04/26/2025 9:00:53 AM This report has been signed electronically.
--- NOTE | 2025-04-26 09:04 | PCM.POST.ANE ---
Anesthesia: Postop Eval I Current Vital Signs Temperature: 97 F Pulse Rate: 76 Blood Pressure: 110/65 Respiratory Rate: 16 Pulse Ox: 98 Oxygen Delivery Method: Room Air Assessment Airway patent: Yes Spontaneous unlabored respirations: Yes Mental status: Awake nausea: No Vomiting: No Anesthesia Complication: No Fluid Hydration Crystalloid volume administer (ml): 400 Total IV fluid infused: 400 Progress Note Anesthesia document: Postop Eval 1 completed: Yes
--- NOTE | 2025-04-26 10:10 | PCM.POSTANE2 ---
Anesthesia Postop Eval I Sum Postop Eval Completion status Anesthesia document: Postop Eval 1 completed: Yes Anesthesia Postop Eval I Summary Anesthesia Postop Eval I Summary: Anesthesia Postop Eval I: Assessment Summary Airway patent Yes 04/26/25 09:05 [email or web address] Spontaneous unlabored Yes 04/26/25 09:05 [email or web address] respirations Mental status Awake 04/26/25 09:05 [email or web address] nausea No 04/26/25 09:05 [email or web address] Vomiting No 04/26/25 09:05 [email or web address] Anesthesia Postop Eval I: Fluid Summary Crystalloid volume administer 400 04/26/25 09:05 [email or web address] (ml) Colloids volume administered ( ml) Blood Product volume administered (ml) Total IV fluid infused 400 04/26/25 09:05 [email or web address] Anesthesia Postop Eval I: Summary Notes Anesthesia Complication No 04/26/25 09:05 [email or web address] Anesthesia Complication Comment: Post-operative progress note Anesthesia: Postop Eval II Evaluation Mental status: Awake and Calm Pain Level: 0 nausea: No Vomiting: No Complications Anesthesia Complication: No
== END 2025-04-26 09:36 | disposition home or self-care (01) ==
LOC: EN 07:04 → AC 07:09
PROVIDERS: PCP Family Medicine; Referring Provider Family Medicine; Visit Provider Internal Medicine Gastroenterology
PROC: 0DJD8ZZ Inspection of Lower Intestinal Tract, Via Natural or Artificial Opening Endoscopic (ICD-10-PCS; CPT 45378; principal; 2025-04-26 07:55)
DX: Z12.11 Encounter for screening for malignant neoplasm of colon (principal); E03.9 Hypothyroidism, unspecified; Z79.890 Hormone replacement therapy; D12.8 Benign neoplasm of rectum
CPT/HCPCS: 45385; 88305; J2405

== ENCOUNTER → 2025-05-10 | Outpatient (CLI) | payer OTHER, SELFPAY ==
--- NOTE | 2025-05-10 14:31 | CT_ITS ---
PROCEDURE: PELVIS WITH IV CONTRAST 05/10/2025 REASON FOR EXAM: EVALUATE SACRAL LESION FOUND ON MRI History of non-Hodgkin's lymphoma. TECHNIQUE: Procedure Code: CTPELW Modality: CT Procedure: PELVIS WITH IV CONTRAST CONTRAST: Isovue-300 VOLUME: 100 mL One or more dose reduction techniques were used (e.g., Automated exposure control, adjustment of the mA and/or kV according to patient size, use of iterative reconstruction technique). RADIATION DOSE SUMMARY: CTDlvol: 28.08 MGy DLP: 943.33 mGycm COMPARISON: Prior MRI of the lumbar spine dated February 21, 2025. FINDINGS: The L4 vertebrae is incompletely visualized. There is loss of height of the superior endplate of the L4 vertebrae. Heterogeneous appearance of the L4 vertebra suggestive of possible hemangioma. Degenerative changes of the facet joints. No bony destruction is seen. Mild degree of degenerative changes of the sacroiliac joints bilaterally. Bladder: The bladder is empty. Reproductive Organs: Prior hysterectomy. Bowel: Scattered sigmoid diverticula. Vasculature: Mild diffuse atherosclerotic calcifications are noted. Peritoneum / Retroperitoneum: Unremarkable CT/Pelvis WITH IV Contrast IMPRESSION: Mild loss of height of the superior endplate of the L4 vertebrae. Findings sug gestive of hemangioma of the L4 vertebrae. No definite bony destruction is seen. Degenerative changes. Reading Location: [id number]
== END | disposition home or self-care (01) ==
LOC: CT 14:20
PROVIDERS: PCP Family Medicine; Referring Provider Orthopaedic Surgery Orthopaedic Surgery of the Spine; Visit Provider Orthopaedic Surgery Orthopaedic Surgery of the Spine
DX: M53.3 Sacrococcygeal disorders, not elsewhere classified (principal)
CPT/HCPCS: 72193; Q9967